=== PATIENT | male | born 1950 | race Caucasian/White ===

== ENCOUNTER 2024-12-02 02:45 | Inpatient (IN) | payer MEDICARE, SELFPAY ==
[2024-12-01 14:25] VITALS: BP 136/89
[2024-12-01 14:41] LABS: % Basophils 0.4 % (0-2); % Eosinophils 0.2 % (0-6); % Immature Granulocytes 0.5 % (0-0.5); % Lymphocytes 5.7 % (20.5-51.1); % Neutrophils 87.2 % (42.2-75.2); Absolute Basophils 0.1 10^3/uL (0-0.2); Absolute Immature Granulocytes 0.1 10^3/uL (0-0.05); Absolute Monocytes 1.1 10^3/uL (0.1-0.6); Absolute Neutrophils 15.8 10^3/uL (1.4-6.5); Hematocrit 39.5 % (39.0-52.0); Hemoglobin 13.2 g/dL (13.0-18.0); Mean Corp Hgb Conc. 33.4 g/dL (33.0-37.0); Mean Corpuscular Hgb 27.6 pg (27.0-31.0); Mean Corpuscular Volume 82.5 fL (80.0-94.0); Mean Platelet Volume 8.3 fL (7.4-10.4); Nucleated Red Blood Cells % 0 % (-); Platelet Count 503 10^3/uL (130-400); Red Blood Cell Count 4.79 10^6/uL (4.70-6.10); Red Cell Dist. Width 13.4 % (11.5-14.5); White Blood Cell Count 18.1 10^3/uL (4.8-10.8)
[2024-12-01 14:55] LABS: ALT (SGPT) 14 U/L (0-50); AST (SGOT) 21 U/L (17-59); Albumin 3.5 g/dl (3.5-5.0); Alkaline Phosphatase 75 U/L (38-126); Blood Urea Nitrogen 39 mg/dl (9-20); Calcium 8.7 mg/dl (8.4-10.2); Carbon Dioxide 28 mmol/L (22-30); Chloride 94 mmol/L (98-107); Glucose 126 mg/dl (70-99); Lipase 193 U/L (23-300); Potassium 4.9 mmol/L (3.5-5.1); Sodium 131 mmol/L (135-145); Total Bilirubin 0.7 mg/dl (0.2-1.3); Total Protein 6.9 g/dl (6.3-8.2); eGFR > 60.00
[2024-12-01 16:16] VITALS: BP 103/69
--- NOTE | 2024-12-01 17:30 | ED.GENMED ---
History of Present Illness
<Clementina Brandon PA-C - Last Filed: 12/02/24 01:24>
General
Chief Complaint: Abdominal Pain
Source: patient
Exam Limitations: none
Time Seen by Provider: 12/01/24 20:49
Nursing documentation reviewed up to this point in time: agreed with
History of Present Illness
History of Present Illness:
Patient is a 74-year-old male presenting to the emergency department for evaluation of many months of vague abdominal discomfort and progressively worsening dysphagia. Patient notes general abdominal discomfort over the past few months associated
with nausea and intermittent vomiting. He also endorses difficulty swallowing both food and liquids which has been progressively worsening. At this point he has difficulty eating or drinking much at all and has lost a significant amount of weight.
Patient denies any diarrhea, constipation, dysuria or other urinary symptoms. Patient states he feels generally weak. No chest pain or shortness of breath.
Separately does report a large growth on his chest that has been slowly growing over the past approximately 6 months. He does think it is started growing much more rapidly over the past few months. This is not painful and bleeds intermittently
Patient denies any alcohol drinking or smoking history. Patient does report has been many years since he was seen by medical provider.
Review of Systems
<Clementina Brandon PA-C - Last Filed: 12/02/24 01:24>
Review of Systems
Allergies reviewed?: Yes
All Other Systems: ROS reviewed and negative except as documented in HPI and ROS
Phy Exam
<Clementina Brandon PA-C - Last Filed: 12/02/24 01:24>
Physical Exam
Physical Exam:
Vitals: Patient's vital signs are stable by my assessment. Afebrile
General: Patient is chronically ill, weak appearing
Skin: 4 x 3 centimeter nodule on central chest without surrounding erythema, red streaking
Head: Normocephalic, atraumatic
Eyes: Sclera nonicteric. EOMs intact. No nystagmus.
Throat: Protecting airway
Neck: Normal ROM, no cervical spine tenderness, no meningismus
Cardiac: Regular rate and rhythm, no murmurs.
Pulm: Normal respiratory effort, no wheezes, rales, rhonchi heard on exam.
Abdomen: Abdomen soft. Diffuse abdominal tenderness
Extremities: No evidence of cyanosis or edema. Palpable DP pulse bilaterally. Strength 5 out of 5 in upper and lower extremities. Sensation fully intact
Neuro: AAOx3 No focal neurologic deficits.
Psychiatric: Normal affect.
Course
<Clementina Brandon PA-C - Last Filed: 12/02/24 01:24>
Orders/Labs/Results
Orders:
Orders
12/01/24 14:32
Complete Blood Count/With Diff Urgent
Comprehensive Metabolic Panel Urgent
Lipase Urgent
12/01/24 21:03
Electrocardiogram (*1) Urgent
Reason for Study: Abdominal Pain
EKG- Treatment ONCE
Famotidine [Pepcid] 20 mg IV NOW STA
Ondansetron Injectable [Zofran] 4 mg IV NOW STA
12/01/24 21:04
CT Abd/pelvis W Iv Cont Urgent
Comment: unable to tolerate PO contrast
Reason For Exam: vague abdominal discomfort, dysphagia, weight loss
12/01/24 21:05
0.9% Sodium Chloride 1000 ml [Nss] 1,000 ml IV BOLUS
Abnormal Lab Results
12/01/24
14:32
WBC 18.1 H 10^3/uL
(4.8-10.8)
Plt Count 503 H 10^3/uL
(130-400)
Abs Immat Gran (auto) 0.1 H 10^3/uL
(0-0.05)
Absolute Neuts (auto) 15.8 H 10^3/uL
(1.4-6.5)
Absolute Lymphs (auto) 1.0 L 10^3/uL
(1.2-3.4)
Absolute Monos (auto) 1.1 H 10^3/uL
(0.1-0.6)
Neutrophils % 87.2 H %
(42.2-75.2)
Lymphocytes % 5.7 L %
(20.5-51.1)
Sodium 131 L mmol/L
(135-145)
Chloride 94 L mmol/L
(98-107)
BUN 39 H mg/dl
(9-20)
Glucose 126 H mg/dl
(70-99)
12/01/24 14:32
12/01/24 14:32
Vital Signs
Initial and Last Documented VS:
Initial Vital Signs
Temp Pulse Resp BP Pulse Ox
98.5 F 113 16 136/89 98
12/01/24 14:25 12/01/24 14:25 12/01/24 14:25 12/01/24 14:25 12/01/24 14:25
Last Documented Vital Signs
Temp Pulse Resp BP Pulse Ox
98.9 F 96 17 103/69 98
12/01/24 16:16 12/01/24 16:16 12/01/24 16:16 12/01/24 16:16 12/01/24 16:16
<Payal Nixon MD - Last Filed: 12/01/24 22:27>
Orders/Labs/Results
Orders:
Orders
12/01/24 14:32
Complete Blood Count/With Diff Urgent
Comprehensive Metabolic Panel Urgent
Lipase Urgent
12/01/24 21:03
Electrocardiogram (*1) Urgent
Reason for Study: Abdominal Pain
EKG- Treatment ONCE
Famotidine [Pepcid] 20 mg IV NOW STA
Ondansetron Injectable [Zofran] 4 mg IV NOW STA
12/01/24 21:04
CT Abd/pelvis W Iv Cont Urgent
Comment: unable to tolerate PO contrast
Reason For Exam: vague abdominal discomfort, dysphagia, weight loss
12/01/24 21:05
0.9% Sodium Chloride 1000 ml [Nss] 1,000 ml IV BOLUS
Abnormal Lab Results
12/01/24
14:32
WBC 18.1 H 10^3/uL
(4.8-10.8)
Plt Count 503 H 10^3/uL
(130-400)
Abs Immat Gran (auto) 0.1 H 10^3/uL
(0-0.05)
Absolute Neuts (auto) 15.8 H 10^3/uL
(1.4-6.5)
Absolute Lymphs (auto) 1.0 L 10^3/uL
(1.2-3.4)
Absolute Monos (auto) 1.1 H 10^3/uL
(0.1-0.6)
Neutrophils % 87.2 H %
(42.2-75.2)
Lymphocytes % 5.7 L %
(20.5-51.1)
Sodium 131 L mmol/L
(135-145)
Chloride 94 L mmol/L
(98-107)
BUN 39 H mg/dl
(9-20)
Glucose 126 H mg/dl
(70-99)
12/01/24 14:32
12/01/24 14:32
Vital Signs
Initial and Last Documented VS:
Initial Vital Signs
Temp Pulse Resp BP Pulse Ox
98.5 F 113 16 136/89 98
12/01/24 14:25 12/01/24 14:25 12/01/24 14:25 12/01/24 14:25 12/01/24 14:25
Last Documented Vital Signs
Temp Pulse Resp BP Pulse Ox
98.9 F 96 17 103/69 98
12/01/24 16:16 12/01/24 16:16 12/01/24 16:16 12/01/24 16:16 12/01/24 16:16
<Madeline Dawson NP - Last Filed: >
Orders/Labs/Results
Orders:
Orders
12/01/24 14:32
Complete Blood Count/With Diff Urgent
Comprehensive Metabolic Panel Urgent
Lipase Urgent
12/01/24 21:03
Electrocardiogram (*1) Urgent
Reason for Study: Abdominal Pain
EKG- Treatment ONCE
Famotidine [Pepcid] 20 mg IV NOW STA
Ondansetron Injectable [Zofran] 4 mg IV NOW STA
12/01/24 21:04
CT Abd/pelvis W Iv Cont Urgent
Comment: unable to tolerate PO contrast
Reason For Exam: vague abdominal discomfort, dysphagia, weight loss
12/01/24 21:05
0.9% Sodium Chloride 1000 ml [Nss] 1,000 ml IV BOLUS
Abnormal Lab Results
12/01/24
14:32
WBC 18.1 H 10^3/uL
(4.8-10.8)
Plt Count 503 H 10^3/uL
(130-400)
Abs Immat Gran (auto) 0.1 H 10^3/uL
(0-0.05)
Absolute Neuts (auto) 15.8 H 10^3/uL
(1.4-6.5)
Absolute Lymphs (auto) 1.0 L 10^3/uL
(1.2-3.4)
Absolute Monos (auto) 1.1 H 10^3/uL
(0.1-0.6)
Neutrophils % 87.2 H %
(42.2-75.2)
Lymphocytes % 5.7 L %
(20.5-51.1)
Sodium 131 L mmol/L
(135-145)
Chloride 94 L mmol/L
(98-107)
BUN 39 H mg/dl
(9-20)
Glucose 126 H mg/dl
(70-99)
12/01/24 14:32
12/01/24 14:32
Vital Signs
Initial and Last Documented VS:
Initial Vital Signs
Temp Pulse Resp BP Pulse Ox
98.5 F 113 16 136/89 98
12/01/24 14:25 12/01/24 14:25 12/01/24 14:25 12/01/24 14:25 12/01/24 14:25
Last Documented Vital Signs
Temp Pulse Resp BP Pulse Ox
98.9 F 96 17 103/69 98
12/01/24 16:16 12/01/24 16:16 12/01/24 16:16 12/01/24 16:16 12/01/24 16:16
<Clementina Brandon PA-C - Last Filed: 12/02/24 01:24>
MDM/Problems Addressed
Differential Diagnosis Includes:
Not limited to: Malignancy (esophageal vs other intra-abdominal source), achalasia, esophageal stricture, MIO, gastritis, pancreatitis, etc.
MDM/Problems Addressed:
74-year-old male presenting with progressive dysphagia and vague abdominal discomfort for the past many months with intermittent vomiting. Also notes significant weight loss. No diarrhea/constipation. No fevers or chills. No chest pain or
shortness of breath. Patient has stable vital signs by my assessment. Physical exam as above. Patient chronically ill-appearing. Dry mucous membranes abdomen is soft with very mild diffuse tenderness, no rebound tenderness or guarding.
Cardio/pulmonary assessment unremarkable. Mass on chest concerning for skin cancer. Labs were initiated in triage significant for leukocytosis of 18. Mild hyponatremia and hypochloremia. Lipase is normal. Concern for possible intra-abdominal
malignancy given symptoms and significant weight loss. Other considerations would be possible achalasia, esophageal stricture, GERD. Will check CT scan, give IV fluid and Zofran. Ultimately anticipate admission given dehydration and significant
dysphagia inability to tolerate significant p.o. intake.
Update: CT scan report reviewed which shows findings consistent with likely metastatic esophageal cancer. Also notes ascites concerning for peritoneal carcinomatosis. Patient afebrile without significant abdominal pain�do not suspect SBP.
Findings discussed with patient at length. Patient will require admission for GI consult/intervention given dysphagia not tolerating p.o. intake. Patient admitted to hospitalist service in stable condition. Patient seen with attending physician.
Chronic conditions affecting care:
N/A
Acute Exacerbation and/or Progression of Chronic Illness:
N/A
<Clementina Brandon PA-C - Last Filed: 12/02/24 01:24>
*Radiology
Radiology exam reviewed: radiology read reviewed
*Pulse Oximetry
Patient hypoxic: no
*EKG
Interpreted by ED Provider?: Yes
EKG Intrepretation Date: 12/01/24
Interpretation: abnormal
Comparison EKG: no changes
Heart Rate: 85
Rate: normal
Rhythm: sinus
[place]: normal axis
Interval: normal QT interval
QRS Pattern: normal QRS
Ischemia: no ischemia
*Critical Care Note
Total Time (30-74mins, 75-104mins- exclusive of procedures): Not Applicable
<Clementina Brandon PA-C - Last Filed: 12/02/24 01:24>
Patient Management
Discussion with other providers: Hospitalist
Escalation/DeEscalation of care consider admission/obs:
Admit given significant dysphagia, inability to tolerate p.o. intake
ED Attending Note
<Payal Nixon MD - Last Filed: 12/01/24 22:27>
ED Attending Note
Patient seen and examined by attending physician: Yes
I performed the substantive portion of visit, reviewed & personally made and approve the management plan that is documented in note by myself or MONAE.: Yes
ED Attending Note:
I have seen and evaluated the patient with a [id number] encounter. I have spoken to the [PA] and involved in the medical history, the physical exam, medical decision making.
Evaluation and management service: agree unless noted differently below.
Results interpretation: agree unless noted differently below.
74-year-old man presenting to the emergency room with abdominal pain. Patient is for months he has been having epigastric abdominal pain weight loss and dysphagia. He is able to tolerate some sips of water however large gulps he cannot tolerate.
He is able to tolerate some solids. Some nausea but no vomiting. He has had weight loss secondary to it. No diarrhea. No night sweats. No history of malignancy. He states that he has not seen a doctor in quite some time. During my evaluation
patient does appear chronically ill. He is having diffuse abdominal pain. He does have dry oral mucosa. He does not have any neurodeficits on exam. Concern for malignancy versus esophageal stricture versus metabolic derangement. Considered CVA
with the dysphagia however he has no other neurodeficits. Blood work obtained prior to evaluation does show leukocytosis. Will obtain CT scan of the abdomen. Anticipate admission given the inability to tolerate p.o.
<Madeline Dawson NP - Last Filed: >
-
Portions of this chart may have been created with voice recognition software.� Occasional wrong word or��sound alike� substitutions may have occurred due to the inherent limitations of voice recognition software.
Discharge Plan
Departure
Patient Disposition: Admit
Date of Disposition: 12/02/24
Time of Disposition: 00:00
Presentation/result/management discussed w/ accepting MD/DO: Hospitalist
Discharge Problem:
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
Referrals:
NONE,* [Family Provider] -
Interventions
Interventions:
*Risk Screen - Suicide Last Done: 12/01/24 14:25
*General Assessment Last Done: 12/01/24 23:43
*Neglect/Abuse Screening Last Done: 12/01/24 23:43
ED- Fall Risk Assessment Last Done: 12/01/24 23:43
*ED COVID-19 Vaccine History Last Done: 12/01/24 23:43
YL-Romiag-Vxtutetpdh Assessment Last Done: 12/01/24 23:43
Discharge Date and Time
Print Language: AMHARIC
[2024-12-01] MEDS: ZOFRAN 4 MG IV (21:26)
[2024-12-01] MEDS: NSS 1000 IV (21:26)
[2024-12-01] MEDS: PEPCID 20 MG IV (21:26)
[2024-12-01 23:43] VITALS: BMI 21.7
[2024-12-02] VITALS (10 sets, daily range): BP systolic 77–135; BP diastolic 49–77; BMI 20.8; BMI 22.4; BMI 19.1
--- NOTE | 2024-12-02 02:26 | HPS.HSE ---
Family Physician
-
Family Physician: * NONE
Chief Complaint
-
Difficulty swallowing
History of Present Illness
Patient is a 74y M with no known PMH who presents to ED complaining of difficulty swallowing. Patient states that he has had trouble swallowing over the past 2 months. Symptoms have progressed in severity during that time. He states that he
could initially tolerate small meals and liquids with long times in between. More recently he cannot even swallow water without great difficulty. He denies any pain with swallowing. He denies any N/V, hematemesis, etc.
Patient also complains of epigastric abdominal pain and mid back pain. He has been notably losing weight - though he is not sure how much.
He states that his bowel movements have decreased in frequency - but have otherwise remained normal. No bloody or black stools.
Patient also notes a large, oozing mass on the anterior chest. He states that this has been present for 'a long time'. He has not previously sought evaluation.
Medical History
Past Medical History
Past Medical History: Reports None
Past Surgical History: Reports Other
Additional Past Surgical History:
Left Hip ORIF
Social History
Tobacco: Former Smoker (Very minimal / remote smoking history. Quit in his early 20s.)
Alcohol: Daily (2 beers nightly.)
Drug: None
Family History
Family History: Other (Father: AAA Mother: Breast Cancer)
Allergies / Home Medications
Allergies reflects when Allergies were last updated in [facility].
Home Medications with original date entered in [facility]
Allergy/Medication List:
Allergies
Allergy/AdvReac Type Severity Reaction Status Date / Time
No Known Allergies Allergy Verified 12/01/24 14:27
Home Medications
No Meds [No Current Medications] 12/02/24
Review of Systems
-
History Source: Patient
A 12 point ROS was completed and negative except as noted: Yes
Constitutional: Reports Weight Loss and Fatigue; Denies Fever or Chills
EENT: Denies Sore Throat
Respiratory: Denies Cough or Trouble Breathing
Cardiac: Denies Chest Pain or Palpitations
Abdomen/GI: Reports Abdominal Pain and Other (trouble swallowing); Denies Nausea, Vomiting, Diarrhea, Bloody Stools or Black Stools
: Denies Dysuria or Frequency
Musculoskeletal: Denies Joint Pain or Edema
Skin: Reports Other (mass on chest)
Neurological: Denies Dizzy or Headache
Physical Exam
Vital Signs
Vital Signs
Temp Pulse Resp BP Pulse Ox
98.9 F 96 17 103/69 98
12/01/24 16:16 12/01/24 16:16 12/01/24 16:16 12/01/24 16:16 12/01/24 16:16
Physical Exam
General: Other (74y M in no acute distress.)
HEENT: Other (Dry MM. Cachectic.)
Respiratory: Clear; No Wheezes, Rales or Rhonchi
Cardiac: S1/S2 and Regular Rhythm; No Murmur
GI: Soft, Non Tender, Non Distended, Normal Bowel Sounds and Other (voluntary guarding. No rebound.)
Musculoskeletal: No Clubbing, No Cyanosis and No Edema
Skin: Other (large, fungating mass on the anterior chest / center with oozing blood .)
Neuro: AO x 3 and Nonfocal/grossly intact
Laboratory Results
-
12/01/24 14:32
12/01/24 14:32
Laboratory Results
Total Bilirubin 0.7 mg/dl (0.2-1.3) 12/01/24 14:32
AST 21 U/L (17-59) 12/01/24 14:32
ALT 14 U/L (0-50) 12/01/24 14:32
Alkaline Phosphatase 75 U/L (38-126) 12/01/24 14:32
Lipase 193 U/L (23-300) 12/01/24 14:32
Impression/Plan
-
A/P: Patient is a 74y M with no known PMH who presents to ED complaining of difficulty swallowing for the past 2 months or so.
Dysphagia
Suspected Metastatic Esophageal Cancer
- Admit for further evaluation and treatment.
- Dysphagia without odynophagia. Significant weight loss.
- CT scan reviewed and shows mass-like thickening of distal esophagus with evidence of diffuse intra-abdominal disease / matting / peritoneal carcinomatosis.
- GI evaluation for additional recommendations.
- IVF support.
- Treatment plan after tissue sampling / biopsy.
- Oncology consulted.
Chest Wall Mass
- Large, fungating mass in the center of the chest.
- Has been present / enlarging for a long time per patient.
- ? squamous or basal cell cancer.
- Surgery evaluation for possible biopsy / resection.
- Oncology consulted.
Mild Hyponatremia
- Likely due to poor PO intake due to dysphagia.
- IVFs support and follow for improvement.
Leukocytosis
Thrombocytosis
- Likely reactive. No evidence of acute infection.
- Observe off of abx and follow for changes.
DVT Prophylaxis: SCDs
Code Status: Full
[2024-12-02] MEDS: NSS 1000 IV ×3 (04:10→23:19)
[2024-12-02 05:12] LABS: Hematocrit 34.8 % (39.0-52.0); Hemoglobin 11.9 g/dL (13.0-18.0); Mean Corp Hgb Conc. 34.2 g/dL (33.0-37.0); Mean Corpuscular Hgb 28.1 pg (27.0-31.0); Mean Corpuscular Volume 82.1 fL (80.0-94.0); Mean Platelet Volume 8.8 fL (7.4-10.4); Platelet Count 454 10^3/uL (130-400); Red Blood Cell Count 4.24 10^6/uL (4.70-6.10); Red Cell Dist. Width 13.3 % (11.5-14.5); White Blood Cell Count 15.3 10^3/uL (4.8-10.8)
[2024-12-02 05:18] LABS: INR 1.16; PT 15.2 Sec (11.4-14.6)
[2024-12-02 05:19] LABS: APTT 34.6 Sec (23.4-35.0)
[2024-12-02 05:26] LABS: ALT (SGPT) 11 U/L (0-50); AST (SGOT) 19 U/L (17-59); Alkaline Phosphatase 68 U/L (38-126); Blood Urea Nitrogen 38 mg/dl (9-20); Calcium 8.2 mg/dl (8.4-10.2); Carbon Dioxide 23 mmol/L (22-30); Chloride 99 mmol/L (98-107); Direct Bilirubin 0.2 mg/dl (0.0-0.4); Estimated Creatinine Clearance 75 ml/min; Glucose 102 mg/dl (70-99); Potassium 4.7 mmol/L (3.5-5.1); Sodium 132 mmol/L (135-145); Total Bilirubin 0.7 mg/dl (0.2-1.3); eGFR > 60.00
--- NOTE | 2024-12-02 07:14 | CON.GI ---
Addendum entered and electronically signed by Mark Toribio DO 12/02/24 16:38:
I saw and examined the patient.
The SERVICE MEMBER's note was reviewed and I agree with the note.
Comment: Mr. Rhodes is a 74 y.o male with no significant past medical history who presented to the ED for acute on chronic dysphagia. No prior EGD in the past. Found to have recent CT imaging revealing moderate circumferential wall thickening of the
distal esophagus with focal irregular wall thickening of the left lateral wall at and above the GE junction. Concern for advanced esophageal carcinoma along with moderate abdominal ascites and omental caking further suggesting likely metastatic
disease. Additionally, found to have a chest wall fungating mass as well concerning for an additional primary malignancy. Oncology has also been consulted. In regards to his esophageal mass, patient would benefit from an EGD with biopsies for
diagnosis (rather than EGD/EUS given findings of metastatic disease). Suspect patient very well may need an esophageal stent as a form of palliation, however would need tissue diagnosis first. Follow up rest of peritoneal studies from recent
paracentesis and please ensure to send cytology given concern for likely malignant ascites. Will plan to perform diagnostic EGD tomorrow after discussing risks and benefits with patient.
Recommendations:
- Keep NPO, okay to have sips of water
- Empiric IV PPI
- Plan for diagnostic EGD tomorrow, 12/03/24, with biopsies (will send for whelan)
- Patient may benefit from a palliative esophageal stent, but will proceed with diagnostic EGD to make diagnosis first. No plans for EUS given suspicion for metastatic disease
- F/u rest of peritoneal fluid studies, send for cytology
- Oncology following, appreciate recs
- Rest of care as outlined below
GI will continue to follow.
Original Note:
Consultation
-
Date/Time Consultation Requested: 12/02/24309
Date/Time Consultation Performed: 12/02/24 8415
Requesting Provider: Dr. Bourne
Performing Provider: Dr. Toribio/MIRANDA Rordiguez
Reason for Consultation: dysphagia
Medical History
Chief Complaint / HPI
Chief Complaint: dysphagia,weight loss
History of Present Illness:
74-year-old male with no significant past medical history however admits he does not go to seek medical care often presented to urgent care because of difficulty swallowing since September and sent to emergency room for further evaluation. We are of
to evaluate for the same. 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 He does not smoke. He drinks 2 beers daily. He has a family history of breast cancer in his mother and lymphoma in his brother. He noticed that approximately
he developed a growth in the upper portion of his chest in the past couple months this started getting larger. Occasionally it would bleed. Currently the size of this is approximately 3 inches x 3 inches fungating and covered in Tegaderm. In
September he had abrupt onset of difficulty swallowing solids and liquid. Initially he started having issues where he would feel as if he drank some liquids it would help push through the solid food. Then he started having episodes where the fluid
would build up and he would vomit this out. He started to notice weight loss and the fact that he is close with no longer fit. He does not own a scale so he cannot quantify this. He also noticed that despite weight loss that his abdomen became
firm but thin. He does have a history of reflux intermittently throughout his life but not often. He would use Tums or Rolaids for this. This has not become worse or less over the past couple months. He does have nausea at times without any
vomiting unless it is from fluid buildup after eating at times. The patient denies any fevers, chills, melena, hematochezia, odynophagia, acholic stools or bilirubinuria. He denies any chest pain or shortness of breath.
Past Medical History
Past Medical History: GERD
Past Surgical History: Orthopedic (Left hip repair)
Social History
Tobacco: Non-Smoker
Alcohol: Daily (2 beers daily)
Drug: None
Personal: Single
Living: Alone
Employment: Retired
Family History
Family History: Other (Mother with history of breast cancer, brother with history of lymphoma, no family history of gastrointestinal malignancy or IBD)
Allergies / Home Medications
Allergy/AdvReac Type Severity Reaction Status Date / Time
No Known Allergies Allergy Verified 12/01/24 14:27
�Medication �Instructions �Recorded
No Meds [No Current Medications] 12/02/24
Review of Systems
-
All other systems: A 12 pt ROS was Negative except as stated above in HPI
Vital Signs
Temp Pulse Resp BP Pulse Ox
98.3 F 80 18 114/75 97
12/02/24 04:14 12/02/24 04:14 12/02/24 04:14 12/02/24 04:14 12/02/24 04:14
Physical Exam
Exam
General: Other (Appears cachectic)
HEENT: Anicteric and Other (Poor dentition)
Respiratory: Clear
Cardiac: Regular Rhythm
GI: Non Tender, Non Distended, Normal Bowel Sounds and Other (Patient very thin, possible peritoneal studding appreciated on abdominal exam)
Musculoskeletal: No Edema
Skin: Warm, Dry and Other (3 inches x 3 inches fungating mass upper sternal area)
Neuro: AO x 3
Psych: Calm
Results
WBC 15.3 10^3/uL (4.8-10.8) H 12/02/24 04:23
Hgb 11.9 g/dL (13.0-18.0) L 12/02/24 04:23
Hct 34.8 % (39.0-52.0) L 12/02/24 04:23
MCV 82.1 fL (80.0-94.0) 12/02/24 04:23
Plt Count 454 10^3/uL (130-400) H 12/02/24 04:23
Absolute Neuts (auto) 15.8 10^3/uL (1.4-6.5) H 12/01/24 14:32
PT 15.2 Sec (11.4-14.6) H 12/02/24 04:23
INR 1.16 12/02/24 04:23
APTT 34.6 Sec (23.4-35.0) 12/02/24 04:23
Sodium 132 mmol/L (135-145) L 12/02/24 04:23
Potassium 4.7 mmol/L (3.5-5.1) 12/02/24 04:23
Chloride 99 mmol/L (98-107) 12/02/24 04:23
Carbon Dioxide 23 mmol/L (22-30) 12/02/24 04:23
BUN 38 mg/dl (9-20) H 12/02/24 04:23
Creatinine 0.8 mg/dL (0.7-1.3) 12/02/24 04:23
Calcium 8.2 mg/dl (8.4-10.2) L 12/02/24 04:23
Total Bilirubin 0.7 mg/dl (0.2-1.3) 12/02/24 04:23
AST 19 U/L (17-59) 12/02/24 04:23
ALT 11 U/L (0-50) 12/02/24 04:23
Alkaline Phosphatase 68 U/L (38-126) 12/02/24 04:23
Lipase 193 U/L (23-300) 12/01/24 14:32
Diagnostic Image Results:
CT abdomen and pelvis with IV contrast: pending
Prior GI Procedures:
EGD: Never had
Colonoscopy: Never had
Assessment / Plan
-
74-year-old male with no significant past medical history who does not seek routine care, family history of lymphoma and breast cancer, drinks 2 alcoholic beverages a day not on any medication presents to the emergency room with approximately
6-month history of 3 inch x 3 and fungating sternal mass and 2-month history of dysphagia to solids and liquids with weight loss of unknown amount as he does not own a scale. CT of the abdomen and pelvis with IV contrast pending. WBC 15.3,
hemoglobin 11.9, hematocrit 34.8, platelets 454, PT 15.2, INR 1.16, sodium 132, potassium 4.7, BUN 38, creatinine 0.8, glucose 102, total bilirubin 0.7, direct bilirubin 0.2, AST 19, ALT 11, alk phos 68, albumin 3.0.
Impression:
Dysphagia
Weight loss
Fungating sternal mass
Plan:
-Await CT abdomen and pelvis
-Oncology consultation
-Would recommend CT chest/neck as well
-Determination for endoscopic evaluation, EGD versus EGD/EUS questionable stenting to be determined
-Continue IV hydration
-Continue pantoprazole
-Further recommendations to be forthcoming
-
-
Thank you for consultation and allowing me to participate in the patient's care. Please call the electronic field service engineer GI physician during the after hours with any questions or concerns.
[2024-12-02] MEDS: NSS (PRESERVATIVE FREE) 10 ML IV (07:22)
[2024-12-02] MEDS: PROTONIX IV 40 MG IV ×2 (07:22→21:13)
--- NOTE | 2024-12-02 08:53 | CON.ONC ---
Impression
Impression
Suspect stage IV esophageal cancer
Chest wall mass
Dysphagia and weight loss
Plan
Plan
Await formal CT of abdomen/pelvis reading. Agree with chest CT as suggested by GI.
Will need EGD for biopsy as well as a surgical biopsy of the fungating mass. These potentially could be related or possibly 2 separate primaries.
Treatment decisions will be made based on staging, pathology, NexGen sequencing (eg, HER2/tahmina, PD-L1, MSI).
This likely represents advanced malignancy and that he would potentially require systemic therapy such as chemotherapy and possibly radiation. He is agreeable to workup and treatment.
We will follow with you.
Patient History
History of Present Illness
CC: Dysphagia and weight loss
HPI: 74-year-old male never sees a PCP MD presented to urgent care because of dysphagia x 2 months with associated weight loss (cannot quantify he does not have a home scale but clothing very loose). Sent from to ER for further evaluation. He
started to notice in September onset of difficulty swallowing solids and liquid. Denies any fevers, chills, melena, hematochezia, odynophagia. He denies any chest pain or shortness of breath. In the ER he had a CT (Prelim report): mass-like
thickening of distal esophagus with evidence of diffuse intra-abdominal disease / matting / peritoneal carcinomatosis. Patient admitted for further evaluation. Patient also has a 6 cm sternal mass also for the past few months growing larger and
occasionally bleeding. It is fungating and currently covered in Tegaderm.
Past-Medical/Surgical History
PMH: GERD
PSH: Left hip repair
Social History
Tobacco: Non-Smoker
Alcohol: Daily (2 beers daily)
Drug: None
Personal: Single
Living: Alone
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
Family History
Family History: Other (Mother with history of breast cancer, brother with history of lymphoma, no family history of gastrointestinal malignancy or IBD)
Allergies / Home Medications
Patient Medication
�Medication �Instructions �Recorded �Confirmed �Last Taken �Type
No Meds [No Current Medications] 12/02/24 12/02/24 Unknown History
Active Medications
Generic Name Dose Route Start Last Admin
Trade Name Freq PRN Reason Stop Dose Admin
Acetaminophen 650 mg 12/02/24 03:10
Acetaminophen 325 Mg Tablet PO 12/30/24 03:09
Q4HPRN PRN
Mild Pain / Temp > 101
Hydromorphone HCl 0.5 mg 12/02/24 03:10
Hydromorphone 0.5 Mg/0.5 Ml Syringe IV 12/16/24 03:09
Q4HPRN PRN
Severe Pain
Sodium Chloride 1,000 mls @ 100 mls/hr 12/02/24 03:10 12/02/24 04:10
Nss IV 1,000 mls
.Q10H JANETTE Administration
Ondansetron HCl 4 mg 12/02/24 03:10
Ondansetron 4 Mg/2 Ml Vial IV 12/30/24 03:09
Q6HPRN PRN
nausea and vomiting
Pantoprazole Sodium 40 mg 12/02/24 08:00 12/02/24 07:22
Pantoprazole Sodium 40 Mg/10 Ml Vial IV 12/30/24 07:59 40 mg
BID JANETTE Administration
Sodium Chloride 10 ml 12/02/24 08:00 12/02/24 07:22
Sodium Chloride 0.9% (Preservative Free) 10 Ml Vial IV 12/30/24 07:59 10 ml
DAILY JANETTE Administration
Sodium Chloride 0 flush 12/02/24 05:00
Sodium Chloride 0.9% (Flush) Syringe IV 12/30/24 04:59
PER PROTOCOL JANETTE
Physical Exam
-
Chest wall: Fungating sick centimeter mass covered in Tegaderm, oozing
General: No Apparent Distress and Comfortable
HEENT: Negative Jaundice
Cardiology: Normal Sinus Rhythm, S1 and S2
Pulmonary: Clear
GI: Soft
Extremities: No C/C/E
Labs
Lab Results
WBC 15.3 10^3/uL (4.8-10.8) H 12/02/24 04:23
RBC 4.24 10^6/uL (4.70-6.10) L 12/02/24 04:23
Hgb 11.9 g/dL (13.0-18.0) L 12/02/24 04:23
Hct 34.8 % (39.0-52.0) L 12/02/24 04:23
MCV 82.1 fL (80.0-94.0) 12/02/24 04:23
MCH 28.1 pg (27.0-31.0) 12/02/24 04:23
MCHC 34.2 g/dL (33.0-37.0) 12/02/24 04:23
RDW 13.3 % (11.5-14.5) 12/02/24 04:23
Plt Count 454 10^3/uL (130-400) H 12/02/24 04:23
MPV 8.8 fL (7.4-10.4) 12/02/24 04:23
Abs Immat Gran (auto) 0.1 10^3/uL (0-0.05) H 12/01/24 14:32
Absolute Neuts (auto) 15.8 10^3/uL (1.4-6.5) H 12/01/24 14:32
Absolute Lymphs (auto) 1.0 10^3/uL (1.2-3.4) L 12/01/24 14:32
Absolute Monos (auto) 1.1 10^3/uL (0.1-0.6) H 12/01/24 14:32
Absolute Eos (auto) 0.0 10^3/uL (0-0.7) 12/01/24 14:32
Absolute Basos (auto) 0.1 10^3/uL (0-0.2) 12/01/24 14:32
Immature Gran % 0.5 % (0-0.5) 12/01/24 14:32
Neutrophils % 87.2 % (42.2-75.2) H 12/01/24 14:32
Lymphocytes % 5.7 % (20.5-51.1) L 12/01/24 14:32
Monocytes % 6.0 % (1.7-9.3) 12/01/24 14:32
Eosinophils % 0.2 % (0-6) 12/01/24 14:32
Basophils % 0.4 % (0-2) 12/01/24 14:32
Creatinine 0.8 mg/dL (0.7-1.3) 12/02/24 04:23
Vital Signs
Vital Signs
Temp Pulse Resp BP Pulse Ox
98.3 F 80 18 117/73 97
12/02/24 04:14 12/02/24 04:14 12/02/24 04:14 12/02/24 07:21 12/02/24 07:26
--- NOTE | 2024-12-02 09:31 | W.PN.HOSP.TC ---
Addendum entered and electronically signed by Quinten Joe MD 12/02/24 14:14:
I personally reviewed CT abdomen pelvis noted esophageal narrowing secondary to mass, hepatic mass, and abdominal ascites, large amount, IR consult, SAAG labs ordered along with cytology and Gram stain. Consult GI likely requires EGD with stent and
EUS with biopsy.
Mass on the anterior chest is fungating erythematous. Will require biopsy.
Original Note:
Today's Communication/Plan
-
Chest/neck CT
EDG possibly
Assessment / Plan
Assessment / Plan
#Dysphagia
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
CT scan showed masslike thickening of distal esophagus with evidence of diffuse intra-abdominal disease and peritoneal carcinomatosis
CT chest/neck pending
GI considering endoscopic evaluation of EGD versus EGD/EUS with or without stenting
GI on board, appreciate input
Continue IVF and pantoprazole
Oncology on board appreciate input
surgery consulted, appreciate input
#chest wall mass
large, fungating mass in center of chest
6+ months of growth, now weeping fluids
surgery consulted
oncology on board
#hyponatremia
likely secondary to poor PO intake
continue IVF
#leukocytosis
likely reactive. no evidence of acute infection
observe
DVT Proph- SCD
Full code
Anticipated Discharge: > 48 hours
Subjective/Interval History
-
Date of Service: December 02, 2024
74-year-old male with no known past medical history presenting to [facility] with difficulty swallowing liquids and solids. He states that this has been progressively worsening over the last 2 months. He also states that he has a fungating
mass on his chest that has been present for at least 6 months however has gotten a lot bigger in the last few weeks. He has never had a colonoscopy and does not follow with a primary care doctor. He says he has a remote history of smoking however
has not smoked in many years. He used to drink 2-3 beers per night prior to developing dysphagia.
Objective Data
-
Labs:
Laboratory Results
12/02/24
04:23
WBC 15.3 H
Hgb 11.9 L
Hct 34.8 L
Plt Count 454 H
PT 15.2 H
INR 1.16
APTT 34.6
Sodium 132 L
Potassium 4.7
Chloride 99
Carbon Dioxide 23
BUN 38 H
Creatinine 0.8
Glucose 102 H
Calcium 8.2 L
Total Bilirubin 0.7
AST 19
ALT 11
Alkaline Phosphatase 68
Vital Signs:
Vital Signs
Temp Pulse Resp BP Pulse Ox
98.3 F 80 18 117/73 97
12/02/24 04:14 12/02/24 04:14 12/02/24 04:14 12/02/24 07:21 12/02/24 07:26
Review of Systems
-
History Source: Patient
Constitutional: Reports Weight Loss and No Appetite
EENT: Reports Other (dysphagia)
Respiratory: Reports No Symptoms
Cardiac: Reports No Symptoms
Abdomen/GI: Reports Constipated
Genitourinary: Reports No Symptoms
Musculoskeletal: Reports No Symptoms
Skin: Reports No Symptoms
Physical Exam
-
General: Comfortable, Conversant and Appears Chronically Ill
HEENT: Normocephalic and Atraumatic; Negative Moist Mucous Membranes
Respiratory: Clear to Auscultation
Cardiac: Regular Rhythm and S1/S2
GI: Soft, Tender and Distended
Musculoskeletal: No Cyanosis, No Edema, Clubbing and Other
Skin: Warm and Dry
Neuro: AO x 3
Psych: Calm
Data Reviewed
-
CT Scan: Report Reviewed by me
Labs: Labs Reviewed by me and Discussed with Physician
Old Records: Reviewed
--- NOTE | 2024-12-02 10:15 | WOUNDNOTE ---
DOMINIC RN note: Patient admitted with Dysphagia, cancer of esophagus.
See H&P for complete history.
PMH: Metastatic esophageal cancer, chest wall mass.
Wound Location and type/assessment: Patient admitted with: Tumor wound on upper mid chest, pink, raised and no odor. Patient states he has had this mass for several months. Patient able to turn self, sacrum and heels intact.
Appetite: NPO
Pressure redistribution devices in place: Can be on Accumax, pressure ulcer prevention measures reviewed. Patient states he understands. Pillow placed under calves.
Plan: Local wound care applied. Surgery and oncology on consult.
Will confirm orders with hospitalist and updated nurse Eunice.
Updated care plan and will follow as needed.
Note to case management of equipment requested for discharge: TBD
Recommend follow up at wound care center upon discharge.
[2024-12-02 12:27] LABS: Body Fluid WBC 1138 /CUMM
[2024-12-02 12:30] LABS: Body Fluid Second Tech EM
[2024-12-02 14:17] LABS: Body Fluid Albumin 1.6 g/dl; Body Fluid Protein 3.7 g/dl
--- NOTE | 2024-12-02 16:35 | CON.GS ---
Consultation
-
Requesting Provider: Steffen
Performing Provider: Danielle
Reason for Consultation: Fungating chest wall mass
Medical History
-
Chief Complaint: dysphagia, wt loss
History of Present Illness:
74M with progressive onset of dysphagia and unintentional wt loss that began 2-3 months ago with difficulty swallowing. Around the same time he developed a lump on his chest that has been enlarging over time, a/w intermittent bleeding. He endorses
intermittent vomiting and weight loss such that his clothes no longer fit properly. His abdomen has also become 'firm' during this time frame, though it is nontender. Denies f/c.
Past Medical History
Past Medical History: GERD and Other (does not see physicians with any regularity)
Past Surgical History: Orthopedic (left hip)
Social History
Tobacco: Non-Smoker
Alcohol: Daily
Drug: None
Personal: Single
Living: Other (has living siblings )
Employment: Retired
Family History
Family History: Other (Mother with history of breast cancer, brother with history of lymphoma)
Allergies / Home Medications
Allergy/AdvReac Type Severity Reaction Status Date / Time
No Known Allergies Allergy Verified 12/01/24 14:27
�Medication �Instructions �Recorded �Confirmed �Type
No Meds [No Current Medications] 12/02/24 12/02/24 History
Review of Systems
-
A 10 point review of systems was completed, and was negative except as per HPI.
Physical Exam
Vital Signs
Temp Pulse Resp BP Pulse Ox
98.2 F 79 18 109/66 100
12/02/24 11:50 12/02/24 11:50 12/02/24 11:50 12/02/24 11:50 12/02/24 11:50
12/01/24 12/02/24 12/03/24
06:59 06:59 06:59
Actual Weight 63.9 kg
Body Mass Index (BMI) 20.8
Lab Results
12/02/24 04:23
12/02/24 04:23
WBC 15.3 10^3/uL (4.8-10.8) H 12/02/24 04:23
Hgb 11.9 g/dL (13.0-18.0) L 12/02/24 04:23
Hct 34.8 % (39.0-52.0) L 12/02/24 04:23
Plt Count 454 10^3/uL (130-400) H 12/02/24 04:23
Abs Immat Gran (auto) 0.1 10^3/uL (0-0.05) H 12/01/24 14:32
Neutrophils % 87.2 % (42.2-75.2) H 12/01/24 14:32
Physical Exam
HEENT: Other (mild temporal wasting)
GI: Soft and Non Tender
Skin: Other (3cm exophytic mass with irregular border and hypergranular appearance)
Neuro: AO x 3
Psych: Calm
Data Reviewed
-
CT Scan: Image Personally Visualized and interpreted, Report Reviewed by me and Discussed with Patient
Assessment / Plan
-
74M with suspected stage IV esophageal CA and fungating chest wall mass
AFVSS, no abd pain
Leukocytosis and thrombocytosis noted, improving since admit
CT A/P with distal esophageal mural mass, omental caking, ascites, liver lesion
Plan for diagnostic paracentesis with IR, EGD/EUS/sampling/possible stent with GI
Would defer biopsy of chest wall mass pending above
GS will follow
[2024-12-02 17:52] LABS: CEA 0.72 ng/ml
--- NOTE | 2024-12-02 21:36 | TRANSFER ---
Patient transferred via stretcher accompanied by ED PCT, all belongings with patient. Report previously tubed and called to verify.
--- NOTE | 2024-12-02 21:45 | TRANSFER ---
pt arrived from via stretcher accompanied by ED staff. pt ambulated from stretcher to bed without assistance. AAOx3, VSS. call shah placed within reach, plan of care ongoing.
[2024-12-03 06:00] VITALS: BMI 19.3
--- NOTE | 2024-12-03 07:38 | W.PN.HOSP.TC ---
Addendum entered and electronically signed by Quinten Joe MD 12/03/24 14:12:
Dysphagia secondary to suspected esophageal cancer
For EGD with biopsy today
Discussed with endoscopist necrotic mass unable to stand unclear if false lumen.
UGIS ordered.
N.p.o.
IV fluids�dextrose containing
Follow-up biopsies
Large volume ascites,'s SAAG 0.9, likely related to omental caking
2.9 L removed
Follow-up cytology
Fungating mass
Surgery consult for biopsy
Original Note:
Today's Communication/Plan
-
EGD with biopsy today
Assessment / Plan
Assessment / Plan
#Dysphagia
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
CT scan showed masslike thickening of distal esophagus with evidence of diffuse intra-abdominal disease and peritoneal carcinomatosis
CT chest/neck shows distal esophageal thickening, abdominal ascites
GI considering endoscopic evaluation of EGD versus EGD/EUS with or without stenting. to be completed today
GI on board, appreciate input
Continue IVF and pantoprazole
Oncology on board appreciate input
surgery on board, appreciate input
IR consulted for therapeutic thoracentesis. 2900 cc removed
#chest wall mass
large, fungating mass in center of chest
6+ months of growth, now weeping fluids
surgery following
oncology on board
#hyponatremia
likely secondary to poor PO intake
continue IVF
#leukocytosis
likely reactive. no evidence of acute infection
observe
DVT Proph- SCD
Full code
Anticipated Discharge: > 48 hours
Subjective/Interval History
-
Date of Service: December 03, 2024
Patient underwent thoracentesis yesterday and 2900 cc of fluid was removed. Chest CT showed distal esophageal wall thickening concerning for esophageal carcinoma, moderate rubio ascites and omental caking, right middle lobe noncalcified 7 mm
pulmonary nodule. Plan for EGD with biopsy today.
Objective Data
-
Labs:
Laboratory Results
12/03/24
07:33
WBC Pending
Hgb Pending
Hct Pending
Plt Count Pending
Sodium Pending
Potassium Pending
Chloride Pending
Carbon Dioxide Pending
BUN Pending
Creatinine Pending
Glucose Pending
Calcium Pending
Total Bilirubin Pending
AST Pending
ALT Pending
Alkaline Phosphatase Pending
Vital Signs:
Vital Signs
Temp Pulse Resp BP Pulse Ox
98.6 F 76 18 116/68 98
12/02/24 23:30 12/02/24 23:30 12/02/24 23:30 12/02/24 23:30 12/02/24 23:30
I&O
12/02/24 12/03/24 12/04/24
06:59 06:59 06:59
Intake Total 1200 / 1200
Output Total 300 / 300
Balance 900 / 900
Review of Systems
-
History Source: Patient
Constitutional: Reports Weight Loss, No Appetite and Fatigue
EENT: Reports Other (dysphagia)
Respiratory: Reports No Symptoms
Cardiac: Reports No Symptoms
Abdomen/GI: Reports Nausea
Genitourinary: Reports No Symptoms
Musculoskeletal: Reports Muscle Weakness
Physical Exam
-
General: Conversant and Appears Chronically Ill
HEENT: Normocephalic and Atraumatic; Negative Moist Mucous Membranes
Respiratory: Clear to Auscultation
Cardiac: Regular Rhythm and S1/S2
GI: Soft, Nontender and Distended
Musculoskeletal: No Cyanosis, No Edema and Clubbing
Skin: Warm and Dry
Neuro: AO x 3
Psych: Calm
Data Reviewed
-
CT Scan: Report Reviewed by me
Labs: Labs Reviewed by me and Discussed with Physician
Old Records: Reviewed
[2024-12-03 07:48] VITALS: BP 118/68
[2024-12-03 07:56] LABS: % Basophils 0.7 % (0-2); % Eosinophils 0.5 % (0-6); % Immature Granulocytes 0.4 % (0-0.5); % Lymphocytes 5.3 % (20.5-51.1); % Neutrophils 87.1 % (42.2-75.2); Absolute Basophils 0.1 10^3/uL (0-0.2); Absolute Eosinophils 0.1 10^3/uL (0-0.7); Absolute Immature Granulocytes 0.1 10^3/uL (0-0.05); Absolute Lymphocytes 0.8 10^3/uL (1.2-3.4); Absolute Monocytes 0.9 10^3/uL (0.1-0.6); Absolute Neutrophils 12.9 10^3/uL (1.4-6.5); Hematocrit 36.1 % (39.0-52.0); Hemoglobin 12.1 g/dL (13.0-18.0); Mean Corp Hgb Conc. 33.5 g/dL (33.0-37.0); Mean Corpuscular Hgb 27.8 pg (27.0-31.0); Mean Corpuscular Volume 82.8 fL (80.0-94.0); Mean Platelet Volume 8.5 fL (7.4-10.4); Nucleated Red Blood Cells % 0 % (-); Platelet Count 416 10^3/uL (130-400); Red Blood Cell Count 4.36 10^6/uL (4.70-6.10); Red Cell Dist. Width 13.4 % (11.5-14.5); White Blood Cell Count 14.8 10^3/uL (4.8-10.8)
[2024-12-03 08:23] LABS: ALT (SGPT) < 10 U/L (0-50); AST (SGOT) 16 U/L (17-59); Albumin 2.5 g/dl (3.5-5.0); Alkaline Phosphatase 64 U/L (38-126); Blood Urea Nitrogen 35 mg/dl (9-20); Calcium 8.2 mg/dl (8.4-10.2); Carbon Dioxide 21 mmol/L (22-30); Chloride 102 mmol/L (98-107); Estimated Creatinine Clearance 62 ml/min; Glucose 72 mg/dl (70-99); Potassium 4.4 mmol/L (3.5-5.1); Sodium 134 mmol/L (135-145); Total Bilirubin 0.6 mg/dl (0.2-1.3); Total Protein 5.4 g/dl (6.3-8.2); eGFR > 60.00
--- NOTE | 2024-12-03 08:38 | W.PN.ONC2 ---
Documented by User: MIRANDA Hylton 12/03/24 12:01
Today's Communication / Plan
-
-
Impression
Impression
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
RML 7mm pulmonary nodule vs bifurcation of vessels
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
s/p para 2900cc drained 12/02
Dysphagia and weight loss
Plan
Plan
f/u para cytology
EGD/EUS/sampling/possible stent with GI
Treatment decisions will be made based on staging, pathology, NexGen sequencing (eg, HER2/tahmina, PD-L1, MSI).
This likely represents advanced malignancy and that he would potentially require systemic therapy such as chemotherapy and possibly radiation. He is agreeable to workup and treatment.
OP PET
We will follow with you.
Subjective/Objective
Subjective
no new complaints
dry mouth
denies pain
Vital Signs:
Vital Signs
Temp Pulse Resp BP Pulse Ox
99.2 F 89 18 118/68 98
12/03/24 07:48 12/03/24 07:48 12/03/24 07:48 12/03/24 07:48 12/03/24 07:48
Lab Results:
Laboratory Data
WBC 14.8 10^3/uL (4.8-10.8) H 12/03/24 07:33
Hgb 12.1 g/dL (13.0-18.0) L 12/03/24 07:33
Plt Count 416 10^3/uL (130-400) H 12/03/24 07:33
PT 15.2 Sec (11.4-14.6) H 12/02/24 04:23
INR 1.16 12/02/24 04:23
APTT 34.6 Sec (23.4-35.0) 12/02/24 04:23
eGFR > 60.00 12/03/24 07:33
Physical Exam
Chest wall: Fungating sick centimeter mass covered in Tegaderm, oozing
General: No Apparent Distress and Comfortable
HEENT: Negative Jaundice, poor dentition
Cardiology: Normal Sinus Rhythm, S1 and S2
Pulmonary: Clear
GI: Soft
Extremities: No C/C/E

Documented by User: Jens Massey DO 12/03/24 11:15
Plan
Plan
f/u para cytology
EGD/EUS/sampling/possible stent with GI pending today
Reviewed need for pathologic diagnosis to confirm tissue type and potential treatment options
Treatment decisions will be made based on staging, pathology, NexGen sequencing (eg, HER2/tahmina, PD-L1, MSI).
This likely represents advanced malignancy and that he would potentially require systemic therapy such as chemotherapy and possibly radiation. He is agreeable to workup and treatment.
OP PET
We will follow with you.
[2024-12-03] MEDS: NSS 1000 IV (09:38)
[2024-12-03] MEDS: NSS (PRESERVATIVE FREE) 10 ML IV ×2 (09:39→19:38)
[2024-12-03] MEDS: PROTONIX IV 40 MG IV ×2 (09:39→19:38)
--- NOTE | 2024-12-03 10:24 | CM ---
CM following re: discharge planning.
Reviewed pt's chart, met with pt.
Pt is a 74 year old male, admitted with primary dx of Dysphagia. Suspected metastatic esophageal cancer. Per chart review, EGD with biopsy today.
Pt reports he lives alone in a 2SH, 2 steps to enter, has no children, has 5 supportive brothers. Pt described himself as independent in al areas [employer], known to wound care clinic. Pt expressed his desire to return back home at discharge.
resident associate recommend follow up at wound care clinic at discharge.
PCP: pt stated he does not have PCP; goes to Urgent care.
Pharmacy: pt stated he does no take any medications and would prefer [facility] [place].
D/C plan: home with follow up at wound care clinic and brothers support.
CM will follow with discharge plan updates as hospitalization progresses
[2024-12-03 13:00] VITALS: BP 105/63; BP_SYST 14
[2024-12-03 13:15] VITALS: BP 102/64; BP_SYST 18
--- NOTE | 2024-12-03 13:21 | PTCARENOTE ---
Dr Toribio spoke with PT regarding prognosis, PT is down and said multiple times, 'I wish I didn't wake up', 'Im a man walking, there is no point anymore'
[ End ]
[2024-12-03] MEDS: D5/0.45%NACL 1000 IV (15:39)
[2024-12-03 15:56] VITALS: BP 135/81
--- NOTE | 2024-12-03 17:53 | PTCARENOTE ---
Received patient this am AAOx3. Pt NPO with IVF infusing without difficulty. Pt off unit to GI unit an then Ct scan. Pt appears very upset in regards to current medical issues. Dr. Toribio to see patient at bedside. Made patient comfortable. Support
given to patient. Cont to assess patient status.
[2024-12-03 23:41] VITALS: BP 113/71
[2024-12-04] MEDS: D5/0.45%NACL 1000 IV (00:30)
--- NOTE | 2024-12-04 06:58 | PTOTSP ---
Speech Therapy
EGD found 'near-completely obstructing, malignant-appearing esophageal mass found in the distal esophagus'. Currently NPO with further tests pending. Given above findings as likely the most significant cause for dysphagia, ST is not currently
indicated. Reconsult as needed.
--- NOTE | 2024-12-04 07:54 | W.PN.HOSP.TC ---
Addendum entered and electronically signed by Quinten Joe MD 12/04/24 13:44:
Dysphagia secondary to suspected esophageal cancer
S/p EGD, able to obtain multiple biopsies from different sites however report is concerning for necrotic mass/false lumen unable to safely stent at the time of the EGD
UGI as obtained, able to allow for contrast to pass small amount of bile, started on clear liquid diet, GI to speak with advanced endoscopist to review imaging for potential esophageal stent
-If unable to provide stent may require a discussion for alternative sources of feeding that being surgically placed PEG tube versus TPN
-Though started on a liquid diet would add Ensure with small sips to allow for some nutritional intake
IV fluids�dextrose containing
Follow-up biopsies
Large volume ascites,'s SAAG 0.9, likely related to omental caking
2.9 L removed
Follow-up cytology
Fungating mass
Surgery consult for biopsy
Hyponatremia, hypovolemic
start D5 NS
Leukocytosis without evidence of infection, afebrile, will continue to monitor, likely reactive in the setting of malignancy
Will follow for now if, getting worse becomes febrile then would obtain blood cultures start antibiotics
Original Note:
Today's Communication/Plan
-
pending biopsy results
GI to recommend if stenting possible based on UGIS
Assessment / Plan
Assessment / Plan
#Dysphagia
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
CT scan showed masslike thickening of distal esophagus with evidence of diffuse intra-abdominal disease and peritoneal carcinomatosis
CT chest/neck shows distal esophageal thickening, abdominal ascites
GI considering endoscopic evaluation of EGD versus EGD/EUS with or without stenting. Completed on 12/04.
Pending pathology results
GI on board, appreciate input
Continue IVF and pantoprazole
Oncology on board appreciate input
surgery on board, appreciate input
IR consulted for therapeutic thoracentesis. 2900 cc removed
Oncology recommending outpatient PET scan
#Protein calorie malnutrition
Likely secondary to dysphagia from esophageal cancer
Ongoing conversations regarding nutritional supplementation via PEG versus TPN
#chest wall mass
large, fungating mass in center of chest
6+ months of growth, now weeping fluids
surgery following
oncology on board
#hyponatremia
likely secondary to poor PO intake
continue IVF
#leukocytosis
likely reactive. no evidence of acute infection
observe
DVT Proph- SCD
Full code
Anticipated Discharge: > 48 hours
Subjective/Interval History
-
Date of Service: December 04, 2024
Patient underwent EUS with biopsy yesterday. Near complete occlusion of distal esophagus. He reports no acute overnight events. He states the only complaint he has currently is having a very dry mouth.
Objective Data
-
Vital Signs:
Vital Signs
Temp Pulse Resp BP Pulse Ox
98.6 F 82 18 113/71 98
12/03/24 23:41 12/03/24 23:41 12/03/24 23:41 12/03/24 23:41 12/03/24 23:41
I&O
12/03/24 12/04/24 12/05/24
06:59 06:59 06:59
Intake Total 1200 / 1200 2240 / 2240
Output Total 300 / 300 450 / 450
Balance 900 / 900 1790 / 1790
Review of Systems
-
History Source: Patient
Constitutional: Reports Weight Loss, No Appetite and Fatigue
EENT: Reports Other (Dysphagia)
Respiratory: Reports No Symptoms
Abdomen/GI: Reports Nausea
Genitourinary: Reports No Symptoms
Musculoskeletal: Reports No Symptoms
Skin: Reports No Symptoms
Neuro: Reports Weakness
Physical Exam
-
General: Conversant, Appears Chronically Ill and Cachectic
HEENT: Normocephalic and Atraumatic
Respiratory: Clear to Auscultation
Cardiac: Regular Rhythm and S1/S2
GI: Soft, Nontender and Nondistended
Musculoskeletal: No Cyanosis, No Edema and Clubbing
Skin: Warm and Dry
Neuro: AO x 3
Psych: Calm
Data Reviewed
-
Labs: Labs Reviewed by me and Discussed with Physician
Old Records: Reviewed
[2024-12-04 07:55] VITALS: BP 113/68
[2024-12-04 08:16] LABS: % Basophils 0.4 % (0-2); % Eosinophils 0.6 % (0-6); % Immature Granulocytes 0.5 % (0-0.5); % Lymphocytes 5.2 % (20.5-51.1); % Monocytes 6.3 % (1.7-9.3); Absolute Basophils 0.1 10^3/uL (0-0.2); Absolute Eosinophils 0.1 10^3/uL (0-0.7); Absolute Immature Granulocytes 0.1 10^3/uL (0-0.05); Absolute Lymphocytes 0.8 10^3/uL (1.2-3.4); Absolute Neutrophils 13.8 10^3/uL (1.4-6.5); Hematocrit 36.3 % (39.0-52.0); Hemoglobin 12.1 g/dL (13.0-18.0); Mean Corp Hgb Conc. 33.3 g/dL (33.0-37.0); Mean Corpuscular Hgb 27.6 pg (27.0-31.0); Mean Corpuscular Volume 82.9 fL (80.0-94.0); Mean Platelet Volume 8.5 fL (7.4-10.4); Nucleated Red Blood Cells % 0 % (-); Platelet Count 399 10^3/uL (130-400); Red Blood Cell Count 4.38 10^6/uL (4.70-6.10); Red Cell Dist. Width 13.6 % (11.5-14.5); White Blood Cell Count 15.9 10^3/uL (4.8-10.8)
[2024-12-04 08:36] LABS: ALT (SGPT) < 10 U/L (0-50); AST (SGOT) 16 U/L (17-59); Albumin 2.3 g/dl (3.5-5.0); Alkaline Phosphatase 57 U/L (38-126); Blood Urea Nitrogen 33 mg/dl (9-20); Calcium 7.3 mg/dl (8.4-10.2); Carbon Dioxide 26 mmol/L (22-30); Chloride 102 mmol/L (98-107); Estimated Creatinine Clearance 70 ml/min; Glucose 137 mg/dl (70-99); Potassium 4.2 mmol/L (3.5-5.1); Sodium 133 mmol/L (135-145); Total Bilirubin 0.8 mg/dl (0.2-1.3); Total Protein 5.3 g/dl (6.3-8.2); eGFR > 60.00
[2024-12-04] MEDS: NSS (PRESERVATIVE FREE) 10 ML IV ×2 (09:50→20:35)
[2024-12-04] MEDS: PROTONIX IV 40 MG IV ×2 (09:50→20:35)
[2024-12-04] MEDS: FLUSH (NSS) 1 FLUSH IV ×3 (09:50→20:35)
[2024-12-04] MEDS: DILAUDID 0.5 MG IV (10:00)
--- NOTE | 2024-12-04 10:02 | W.PN.ONC ---
Documented by User: Mike Castaneda DO, Resident 12/04/24 11:04
Today's Communication / Plan
-
Await cytology from biopsy and paracentesis
Definitive management contingent on biopsy results and NexGen sequencing for actionable targets
Outpatient PET CT to further evaluate fungating mass, esophageal mass and omental metastasis
Serial therapeutic paracentesis as needed for recurrent ascites
IV fluids and symptomatic management per primary and GI
Impression
Impression
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
RML 7mm pulmonary nodule vs bifurcation of vessels
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
s/p para 2900cc drained 12/02. Large volume ascites 2.9 L, SAAG 0.9�likely secondary to omental caking
Dysphagia and weight loss
Plan
Plan
f/u para cytology
Serial paracentesis as needed
Status post EGD with biopsy
Cytology/biopsy results pending
Treatment decisions will be made based on staging, pathology, NexGen sequencing (eg, HER2/tahmina, PD-L1, MSI).
This likely represents advanced malignancy and that he would potentially require systemic therapy such as chemotherapy and possibly radiation. He is agreeable to workup and treatment.
OP PET planned
We will follow with you.
Subjective/Objective
Subjective/Objective
Vital Signs:
Vital Signs
Temp Pulse Resp BP Pulse Ox
98.3 F 74 16 113/68 98
12/04/24 07:55 12/04/24 07:55 12/04/24 07:55 12/04/24 07:55 12/04/24 09:48
Lab Results:
Laboratory Data
WBC 15.9 10^3/uL (4.8-10.8) H 12/04/24 08:03
Hgb 12.1 g/dL (13.0-18.0) L 12/04/24 08:03
Plt Count 399 10^3/uL (130-400) 12/04/24 08:03
PT 15.2 Sec (11.4-14.6) H 12/02/24 04:23
INR 1.16 12/02/24 04:23
APTT 34.6 Sec (23.4-35.0) 12/02/24 04:23
eGFR > 60.00 12/04/24 08:03

Documented by User: Parth Borja MD 12/04/24 12:45
Plan
Plan
f/u para cytology
Serial paracentesis as needed
Status post EGD with biopsy
Cytology/biopsy results pending
Treatment decisions will be made based on staging, pathology, NexGen sequencing (eg, HER2/tahmina, PD-L1, MSI).
This likely represents advanced malignancy and that he would potentially require systemic therapy such as chemotherapy and possibly radiation. He is agreeable to workup and treatment.
OP PET planned
We will follow with you
Oncology Addendum:
Patient seen and evaluated and agree w/ resident note and plan as outlined
-advanced metastatic malignancy
-await pathology from EGD w/ biopsy
-chest wall mass -may benefit from palliative XRT
-molecular studies/ HER-2/tahmina/PD-L1%/MSI status to be run on pathology
Will contnue to follow with you
--- NOTE | 2024-12-04 10:54 | PN.CDI ---
CDI
- -
CDI:
Physician Documentation Request
Admit Date: 12/02/24 02:45
Dear Doctor Raciel,
Patient admitted with esophageal mass.
Please review the following and provide your response in the progress notes.
Clinical Indicators:
Height: 5' 9'
Weight: 130 lbs
BMI: 19.3
Other Clinical Notes:
12/03 Oncology PN: 'Suspect stage IV esophageal cancer'
H&P: 'More recently he cannot even swallow water without great difficulty...He has been notably losing weight - though he is not sure how much...Physical Exam...Cachectic.'
If possible, please provide an associated diagnosis related to the abnormal BMI, such as:
Cachexia due to cancer
Cachexia only
Other
BMI < or = to 19.9
Underweight
Weight Loss
Cachectic
Anorexia
Use of terms such as suspected, likely, concern for, or probable (associated with a specific diagnosis that is being evaluated, monitored, or treated as if it exists) are acceptable and can be coded in the inpatient setting, when documented at the
time of discharge.
Thank you,
Sheri Villaseñor RN, BSN
CDI Specialist
Available via [employer] text
Please use your independent medical judgment in providing your response.
[2024-12-04 12:58] VITALS: BMI 19.7
--- NOTE | 2024-12-04 14:06 | W.PN.UPDATE ---
Update Note
Progress Note Update
Spoke with patient this afternoon on 12/04 regarding mood symptoms. Note was relayed to us that patient felt that he wanted to on 12/03. Today in conversation, patient had no suicidal or homicidal ideation. He had no auditory, tactile or visual
hallucinations. He stated that all of the news that he has been getting over the last day has been 'the worst possible outcomes' and is making him feel hopeless. He states he is just waiting to hear what the next steps are and what his biopsy
results are because 'all doctors are telling him the same thing'.
--- NOTE | 2024-12-04 14:31 | W.PN.GI.CBS2 ---
Addendum entered and electronically signed by Kylah Eason MD 12/04/24 17:37:
I saw and examined the patient.
The MASK INSPECTOR or PA's note was reviewed and I agree with the note.
Comment: Patient reports that his abdomen feels tighter with fluid retention, no nausea, vomiting. Is able to tolerate clear liquids but only sips at a time.
No BM yet, taking miralax sips slowly.
Abdomen-soft, mild distention , no tenderness
-Await path results from EGD, needs close follow up with oncology
Change regular ensure to ensure clear as pt is having hard time drinking the thicker ensure. Difficult situation in terms of feeding as pt has near complete obstructing esophageal lesion and possible malignant ascites.
Continue Miralax daily
May need therapeutic paracentesis again next week
Will follow
Original Note:
Today's Communication / Plan
-
s/p EGD and imaging as above with concern for esophageal malignancy with mets (ascites, omental caking, liver lesions)
await path
cont liquid diet as taking minimal- cont supplement - monitor intakes
add miralax with large stool burden on initial CT
cont PPI
appreciate oncology input
brother updated at bedside
Assessment / Plan
-
74-year-old male with no significant past medical history who does not seek routine care, family history of lymphoma and breast cancer, drinks 2 alcoholic beverages a day not on any medication presents to the emergency room with approximately
6-month history of 3 inch x 3 and fungating sternal mass and 2-month history of dysphagia to solids and liquids with weight loss ? 25 lbs +.
12/01 CT a/p IV
Possible distal esophageal mural mass. Upper GI examination/direct visualization recommended
3 cm hypodense hepatic lesion. This may be benign or malignant. MRI examination recommended.
Omental caking suggesting metastatic disease.
Large amount of abdominal pelvic ascites.
Moderate fecal material throughout the colon.
Moderate hiatal hernia
12/02 para 2900ml WBC neg SBP
12/02 CT neck No evidence of acute nor metastatic disease of the neck.
Mild nonacute right maxillary sinusitis.
Less than grade 1 anterolisthesis of C7 on T1.
12/03 EGD [facility] - Near-completely obstructing, malignant-appearing
esophageal mass found in the distal esophagus at 35
cms from the incisors. Beyond this area, there was
extensive ulceration and necrosis. The lumen could not
be found given extensive necrotic appearing tissue.
Possibly resulting in a false lumen beyond the mass.
Multiple biopsies obtained (sent for bard).
- Could not further evaluate the GE junction, stomach,
or duodenum due to the nearly fully obstructing mass
12/03 esophagram
Partially obstructing irregular mass of the distal thoracic esophagus, suspicious for malignancy.
Impression:
distal esophageal mural mass
Fungating sternal mass
ascites s/p para
omental caking on CT concern for mets
liver lesions
Dysphagia
constipation
Weight loss
mod HH
Plan:
s/p EGD and imaging as above with concern for esophageal malignancy with mets (ascites, omental caking, liver lesions)
await path
cont liquid diet as taking minimal- cont supplement - monitor intakes
add miralax with large stool burden on initial CT
cont PPI
appreciate oncology input
brother updated at bedside
Subjective
Subjective
Date of Service: December 04, 2024
tolerating only small sips clear last stool over 1 week ago but was note eating much
Objective
Data Reviewed
Laboratory Data:
Laboratory Results
12/04/24 08:03
12/04/24 08:03
Laboratory Results
PT 15.2 Sec (11.4-14.6) H 12/02/24 04:23
INR 1.16 12/02/24 04:23
APTT 34.6 Sec (23.4-35.0) 12/02/24 04:23
Total Bilirubin 0.8 mg/dl (0.2-1.3) 12/04/24 08:03
AST 16 U/L (17-59) L 12/04/24 08:03
ALT < 10 U/L (0-50) 12/04/24 08:03
Alkaline Phosphatase 57 U/L (38-126) 12/04/24 08:03
Lipase 193 U/L (23-300) 12/01/24 14:32
Vital Signs and I&O:
Vital Signs
Temp Pulse Resp BP Pulse Ox
98.3 F 74 16 113/68 98
12/04/24 07:55 12/04/24 07:55 12/04/24 07:55 12/04/24 07:55 12/04/24 09:48
I&O
12/03/24 12/04/24 12/05/24
06:59 06:59 06:59
Intake Total 1200 / 1200 2240 / 2240
Output Total 300 / 300 450 / 450
Balance 900 / 900 1790 / 1790
Physical Exam
Physical Exam
HEENT: Anicteric and Moist mucous membranes
Cardiology: Normal Sinus Rhythm
Pulmonary: Clear and Other (dry dressing on chest wound)
GI: Soft, Non Distended and Non Tender
Extremities: No Edema
Neuro: Non Focal
[2024-12-04] MEDS: D5/0.9% SODIUM CHLORIDE 1000 IV (14:58)
[2024-12-04] MEDS: D5/0.45%NACL IV (14:58)
[2024-12-04 15:55] VITALS: BP 107/74
--- NOTE | 2024-12-04 16:22 | PTCARENOTE ---
Pt AAO x3, withdrawn. HOSKINS; weak. OOB with minimal assistance. VSS. On room air- pulse ox 98%, no SOB noted. Abd soft, hypoactive BS. Pt shun only small amts clear liquids. Voids in BR/urinal without difficulty. IVF's D5NSS @ 100 ml/hr infusing
via Rt forearm site without sx of infiltration. Resting quietly at present. Ant chest dsg D/I. Will continue to monitor.
[2024-12-04] MEDS: MIRALAX 17 GRAMS PO (16:26)
[2024-12-04 17:01] VITALS: BMI 19.7
[2024-12-04 23:53] VITALS: BP 115/74
[2024-12-05] MEDS: D5/0.9% SODIUM CHLORIDE 1000 IV ×3 (00:50→21:40)
[2024-12-05 06:00] VITALS: BMI 20.2
[2024-12-05 07:20] VITALS: BP 109/73
--- NOTE | 2024-12-05 07:21 | PTCARENOTE ---
Pt aaox3 able to make his needs known.Pt encouraged to call for an pain meds as needed.Pt voided 425 overnight, this morning pt bladder scan is 466ml.Pt states he want some more time & try again later, refuses straight cath.COMPRESSOR OPERATOR risk control director made aware
of it.No new orders at this time.Plan of care continued.
--- NOTE | 2024-12-05 08:45 | W.PN.GI.CBS2 ---
Addendum entered and electronically signed by Roslyn Mtz DO 12/05/24 12:32:
Patient seen and examined independently of MIRANDA. I agree with her note with my additions below
Mayco is slowly trying to take in the Ensure. He is having some nausea and lower abdominal cramping and feels like he is very full.
His path is still pending
He needs some option for nutrition intake which currently is very limited
I have sent a message to discuss with Dr. Ramirez for potential esophageal stenting
I have sent a message to oncology to ask questions about if we did an esophageal stent with that interfere with potential radiation?
He is not a candidate for PEG tube because we cannot get the scope through the esophageal mass
Unlikely J surgical candidate because of the omental caking and ascites
On Saturday would repeat paracentesis for comfort
We had a discussion about anxiety, pain, nausea and I discussed with Dr. Joe. I will start him on a low-dose IV benzodiazepine.
Patient is interested in taking something. He is understandably upset about his grim prognosis
He has no children. His brother who lives about an hour away is coming to see him today.
Addendum entered and electronically signed by MIRANDA Carroll 12/05/24 09:44:
review with Dr. Joe about nutrition if continued decreased intakes. Await path. Would not be candidate for peg with ascites and omental caking. Will review with Dr. Mtz if patient would be candidate for esophageal stent but would likely need
path back first and then review with Dr. Ramirez.
Original Note:
Today's Communication / Plan
-
s/p EGD and imaging as above with concern for esophageal malignancy with mets (ascites, omental caking, liver lesions)
await path from EGD and ascites fluid
cont liquid diet as taking minimal- cont supplement - monitor intakes
cont Miralax daily will add dulcolax and enema as needed reviewed with nursing staff no stool in over 1 week and moderate stool burden on imaging
cont PPI
may need repeat para on Saturday with some lower abdominal fullness
appreciate oncology input
brother updated 12/04
Assessment / Plan
-
74-year-old male with no significant past medical history who does not seek routine care, family history of lymphoma and breast cancer, drinks 2 alcoholic beverages a day not on any medication presents to the emergency room with approximately
6-month history of 3 inch x 3 and fungating sternal mass and 2-month history of dysphagia to solids and liquids with weight loss ? 25 lbs +. Imaging and EGD as below with concern for metastatic process.
12/01 CT a/p IV
Possible distal esophageal mural mass. Upper GI examination/direct visualization recommended
3 cm hypodense hepatic lesion. This may be benign or malignant. MRI examination recommended.
Omental caking suggesting metastatic disease.
Large amount of abdominal pelvic ascites.
Moderate fecal material throughout the colon.
Moderate hiatal hernia
12/02 para 2900ml WBC neg SBP
12/02 CT neck No evidence of acute nor metastatic disease of the neck.
Mild nonacute right maxillary sinusitis.
Less than grade 1 anterolisthesis of C7 on T1.
12/[address] Toribio - Near-completely obstructing, malignant-appearing
esophageal mass found in the distal esophagus at 35
cms from the incisors. Beyond this area, there was
extensive ulceration and necrosis. The lumen could not
be found given extensive necrotic appearing tissue.
Possibly resulting in a false lumen beyond the mass.
Multiple biopsies obtained (sent for medicine bow).
- Could not further evaluate the GE junction, stomach,
or duodenum due to the nearly fully obstructing mass
12/03 esophagram
Partially obstructing irregular mass of the distal thoracic esophagus, suspicious for malignancy.
Impression:
distal esophageal mural mass
Fungating sternal mass
ascites s/p para 12/[address] concern for mets
liver lesions
leukocytosis
hyponatremia
Dysphagia
constipation
Weight loss
mod HH
Plan:
s/p EGD and imaging as above with concern for esophageal malignancy with mets (ascites, omental caking, liver lesions)
await path from EGD and ascites fluid
cont liquid diet as taking minimal- cont supplement - monitor intakes
cont Miralax daily will add dulcolax and enema as needed reviewed with nursing staff no stool in over 1 week and moderate stool burden on imaging
cont PPI
may need repeat para on Saturday with some lower abdominal fullness
appreciate oncology input
brother updated 12/04
Subjective
Subjective
Date of Service: December 05, 2024
Pt still with some difficulty with eating no stools some feeling of lower abdominal fullness
Objective
Data Reviewed
Laboratory Data:
Laboratory Results
12/04/24 08:03
12/04/24 08:03
Laboratory Results
PT 15.2 Sec (11.4-14.6) H 12/02/24 04:23
INR 1.16 12/02/24 04:23
APTT 34.6 Sec (23.4-35.0) 12/02/24 04:23
Total Bilirubin 0.8 mg/dl (0.2-1.3) 12/04/24 08:03
AST 16 U/L (17-59) L 12/04/24 08:03
ALT < 10 U/L (0-50) 12/04/24 08:03
Alkaline Phosphatase 57 U/L (38-126) 12/04/24 08:03
Lipase 193 U/L (23-300) 12/01/24 14:32
Vital Signs and I&O:
Vital Signs
Temp Pulse Resp BP Pulse Ox
98.0 F 76 15 109/73 99
12/05/24 07:20 12/05/24 07:20 12/05/24 07:20 12/05/24 07:20 12/05/24 07:20
I&O
12/04/24 12/05/24 12/06/24
06:59 06:59 06:59
Intake Total 2240 / 2240 2640 / 2640
Output Total 450 / 450 425 / 425
Balance 1790 / 1790 2215 / 2215
Physical Exam
Physical Exam
HEENT: Anicteric and Moist mucous membranes
Cardiology: Normal Sinus Rhythm
Pulmonary: Clear
GI: Soft, Distended and Tender (minimal )
Extremities: No Edema
Neuro: Non Focal
[2024-12-05] MEDS: NSS (PRESERVATIVE FREE) 10 ML IV ×2 (09:33→20:49)
[2024-12-05] MEDS: MIRALAX 17 GRAMS PO (09:33)
[2024-12-05] MEDS: PROTONIX IV 40 MG IV ×2 (09:33→20:50)
--- NOTE | 2024-12-05 09:38 | W.PN.HOSP.TC ---
Today's Communication/Plan
-
Follow-up pathology, depending on findings of pathology may go towards systemic treatment versus hospice
Will need to address feeding source at this time clear liquid diet with ensures 3 times daily may have to suffice
Continue to have goals of care discussions
Assessment / Plan
Assessment / Plan
NAD, thin cachectic temporal wasting
Scleral Anicteric
MMM, poor oral dentition
No JVD
CTABL
RRR, S1/S2
Tense, NT, Distended, BS+
Warm, Dry
AAOx3
Tearful/depressed
Dysphagia secondary to suspected esophageal cancer
S/p EGD, able to obtain multiple biopsies from different sites however report is concerning for necrotic mass/false lumen unable to safely stent at the time of the EGD
-Pathology pending from egd and para.
UGI as obtained, able to allow for contrast to pass small amount of bile, started on clear liquid diet, GI to speak with advanced endoscopist to review imaging for potential esophageal stent
-If unable to provide stent may require a discussion for alternative sources of feeding. Difficult for peg placement due to inability to insufflate stomach, additionally ascites/omental caking makes surgical approach difficult, due to narrowing of
esophagus from neoplasm unable to pass the scope safely
--TPN increases risk of line infection and if picc line/port also would need for chemo
-Though started on a liquid diet would add Ensure with small sips to allow for some nutritional intake
IV fluids�dextrose containing
Yes we are waiting on pathology but I think the biggest question we need to figure out his nutritional status at. If he is not able to receive the nutritional support he needs he will not be able to tolerate chemo and probably would not be a
candidate for chemo at that point.
Will need to continue having goals of care discussions with
Large volume ascites,'s SAAG 0.9, likely related to omental caking
2.9 L removed
Follow-up cytology
Fungating mass
Surgery consult for biopsy
Hyponatremia, hypovolemic
start D5 NS
Leukocytosis without evidence of infection, afebrile, will continue to monitor, likely reactive in the setting of malignancy
Will follow for now if, getting worse becomes febrile then would obtain blood cultures start antibiotics
Anticipated Discharge: > 48 hours
Subjective/Interval History
-
Date of Service: December 05, 2024
Seen and examined. No new complaints. No acute overnight events.
Tells me he is about to drink half and have a Ensure added time. Otherwise denies feeling more bloated and nauseous
States that his abdominal fluid is reaccumulating
He states that he is losing hope and saying that he has pretty advanced cancer because it spread everywhere
Objective Data
-
Vital Signs:
Vital Signs
Temp Pulse Resp BP Pulse Ox
98.0 F 76 15 109/73 99
12/05/24 07:20 12/05/24 07:20 12/05/24 07:20 12/05/24 07:20 12/05/24 07:20
I&O
12/04/24 12/05/24 12/06/24
06:59 06:59 06:59
Intake Total 2240 / 2240 2640 / 2640
Output Total 450 / 450 425 / 425
Balance 1790 / 1790 2215 / 2215
--- NOTE | 2024-12-05 13:00 | PTCARENOTE ---
"Patient assisted x1 to stand at side of bed. Voided 300cc dark felisa urine. Post void bladder scan reading 839- unable to determine if urine detected or ascites. Patient with no further urge to void. Offered a straight cath. Patient refused. "Gary"Heath made aware with no new orders. Will continue to monitor. "
--- NOTE | 2024-12-05 14:00 | PTCARENOTE ---
Patient with no BM after drinking Miralax. Offered suppository but patient declined stating 'maybe after my family leaves'. Will continue to reassess.
[2024-12-05 15:50] VITALS: BP 112/73
[2024-12-05] MEDS: DULCOLAX 10 MG RECTAL (17:11)
[2024-12-05] MEDS: FLUSH (NSS) 1 FLUSH IV (20:50)
[2024-12-05] MEDS: ALPRAZOLAM ODT 0.25 MG PO (23:37)
[2024-12-05 23:52] VITALS: BP 124/82
--- NOTE | 2024-12-06 01:08 | PTCARENOTE ---
Pt aaox3 able to make his needs known.Pt denies need of pain meds at this time c/o 4/10 back pain. Pt oob with 1 person assist to bathroom,pt had 2 small BM. Pt was offered enema,refusing for it & wants to wait & see. Plan of care continued on
pt.Call shah in reach.
[2024-12-06 07:00] VITALS: BP 116/73
--- NOTE | 2024-12-06 07:06 | PTCARENOTE ---
Pt aaox3 able to make his needs known.Pt was provided with prn xanax as needed. Pt refused for weight this morning & voided twice overnight. Plan of care continued.
[2024-12-06 07:25] LABS: Hematocrit 36.2 % (39.0-52.0); Hemoglobin 12.2 g/dL (13.0-18.0); Mean Corp Hgb Conc. 33.7 g/dL (33.0-37.0); Mean Corpuscular Volume 83.2 fL (80.0-94.0); Mean Platelet Volume 8.9 fL (7.4-10.4); Platelet Count 368 10^3/uL (130-400); Red Blood Cell Count 4.35 10^6/uL (4.70-6.10); Red Cell Dist. Width 13.4 % (11.5-14.5); White Blood Cell Count 15.9 10^3/uL (4.8-10.8)
[2024-12-06 07:51] LABS: Blood Urea Nitrogen 27 mg/dl (9-20); Calcium 7.7 mg/dl (8.4-10.2); Carbon Dioxide 23 mmol/L (22-30); Chloride 105 mmol/L (98-107); Estimated Creatinine Clearance 84 ml/min; Glucose 141 mg/dl (70-99); Potassium 3.8 mmol/L (3.5-5.1); Sodium 136 mmol/L (135-145); eGFR > 60.00
[2024-12-06] MEDS: NSS (PRESERVATIVE FREE) 10 ML IV ×2 (08:44→21:07)
[2024-12-06] MEDS: PROTONIX IV 40 MG IV ×2 (08:44→21:07)
[2024-12-06] MEDS: MIRALAX 17 GRAMS PO (08:44)
--- NOTE | 2024-12-06 09:40 | W.PN.HOSP.TC ---
Today's Communication/Plan
-
GI and advanced endoscopy to review imaging for potential esophageal stent
Pain management unfortunately long-acting Oxy cannot be crushed therefore we will discontinue short acting oxycodone start morphine liquid every 4 as needed 10 mg
Increase Xanax to 0.5 crushed
Clear liquid diet ensures 3 times daily
Await pathology from peritoneal fluid and esophageal biopsy
IR consult for repeat paracentesis
D5 NS at a rate of 60 to continue providing caloric intakes if not able to tolerate
Continue bowel regimen
GI, oncology, IR
Assessment / Plan
Assessment / Plan
NAD, thin cachectic temporal wasting
Scleral Anicteric
MMM, poor oral dentition
No JVD
CTABL
RRR, S1/S2
Tense, NT, Distended, BS+
Warm, Dry
AAOx3
Tearful/depressed
Dysphagia secondary to suspected esophageal cancer
S/p EGD, able to obtain multiple biopsies from different sites however report is concerning for necrotic mass/false lumen unable to safely stent at the time of the EGD
-Pathology pending from egd and para.
UGI as obtained, able to allow for contrast to pass small amount of bile, started on clear liquid diet, GI to speak with advanced endoscopist to review imaging for potential esophageal stent
-If unable to provide stent may require a discussion for alternative sources of feeding. Difficult for peg placement due to inability to insufflate stomach, additionally ascites/omental caking makes surgical approach difficult, due to narrowing of
esophagus from neoplasm unable to pass the scope safely
--TPN increases risk of line infection and if picc line/port also would need for chemo
-Though started on a liquid diet would add Ensure with small sips to allow for some nutritional intake
IV fluids�dextrose containing
Yes we are waiting on pathology but I think the biggest question we need to figure out his nutritional status at. If he is not able to receive the nutritional support he needs he will not be able to tolerate chemo and probably would not be a
candidate for chemo at that point.
Will need to continue having goals of care discussions with
Large volume ascites,'s SAAG 0.9, likely related to omental caking
2.9 L removed
Follow-up cytology
Fungating mass
Surgery consult for biopsy
Hyponatremia, hypovolemic, improving
Continue D5 NS
Leukocytosis without evidence of infection, afebrile, will continue to monitor, likely reactive in the setting of malignancy
Will follow for now if, getting worse becomes febrile then would obtain blood cultures start antibiotics
Anticipated Discharge: > 48 hours
Subjective/Interval History
-
Date of Service: December 06, 2024
Seen and examined. No new complaints. No acute overnight events.
Pain still unbearable
Xanax did not help
Objective Data
-
Labs:
Laboratory Results
12/06/24
06:16
WBC 15.9 H
Hgb 12.2 L
Hct 36.2 L
Plt Count 368
Sodium 136
Potassium 3.8
Chloride 105
Carbon Dioxide 23
BUN 27 H
Creatinine 0.7
Glucose 141 H
Calcium 7.7 L
Vital Signs:
Vital Signs
Temp Pulse Resp BP Pulse Ox
98.2 F 77 20 116/73 98
12/06/24 07:00 12/06/24 07:00 12/06/24 07:00 12/06/24 07:00 12/06/24 07:00
I&O
12/05/24 12/06/24 12/07/24
06:59 06:59 06:59
Intake Total 2640 / 2640 360 / 360
Output Total 425 / 425 300 / 300
Balance 2215 / 2215 60 / 60
[2024-12-06] MEDS: D5/0.9% SODIUM CHLORIDE 1000 IV (09:53)
[2024-12-06] MEDS: MORPHINE ORAL SOLUTION 10 MG PO (11:01)
--- NOTE | 2024-12-06 12:47 | W.PN.GI.CBS2 ---
Today's Communication / Plan
-
N.p.o. after midnight for potential stent pending Dr. Ramirez's review information
No need to check labs every day
Assessment / Plan
-
74-year-old male with no significant past medical history who does not seek routine care, family history of lymphoma and breast cancer, drinks 2 alcoholic beverages a day not on any medication presents to the emergency room with approximately
6-month history of 3 inch x 3 and fungating sternal mass and 2-month history of dysphagia to solids and liquids with weight loss ? 25 lbs +. Imaging and EGD as below with concern for metastatic process.
12/01 CT a/p IV
Possible distal esophageal mural mass. Upper GI examination/direct visualization recommended
3 cm hypodense hepatic lesion. This may be benign or malignant. MRI examination recommended.
Omental caking suggesting metastatic disease.
Large amount of abdominal pelvic ascites.
Moderate fecal material throughout the colon.
Moderate hiatal hernia
12/02 para 2900ml WBC neg SBP
12/02 CT neck No evidence of acute nor metastatic disease of the neck.
Mild nonacute right maxillary sinusitis.
Less than grade 1 anterolisthesis of C7 on T1.
12/[address] Toribio - Near-completely obstructing, malignant-appearing
esophageal mass found in the distal esophagus at 35
cms from the incisors. Beyond this area, there was
extensive ulceration and necrosis. The lumen could not
be found given extensive necrotic appearing tissue.
Possibly resulting in a false lumen beyond the mass.
Multiple biopsies obtained (sent for addison).
- Could not further evaluate the GE junction, stomach,
or duodenum due to the nearly fully obstructing mass
12/03 esophagram
Partially obstructing irregular mass of the distal thoracic esophagus, suspicious for malignancy.
Impression:
distal esophageal mural mass
Fungating sternal mass
ascites s/p para 12/[address] concern for mets
liver lesions
leukocytosis
hyponatremia
Dysphagia
constipation
Weight loss
mod HH
s/p EGD and imaging as above with concern for esophageal malignancy with mets (ascites, omental caking, liver lesions)
await path from EGD and ascites fluid
cont liquid diet as taking minimal- cont supplement - monitor intakes
cont Miralax daily will add dulcolax and enema as needed - did have a couple of BMs after the suppository
cont PPI
may need repeat para on Saturday with some lower abdominal fullness
appreciate oncology input
brother updated 12/04
12/06/2024 -discussed with primary team. Would increase benzodiazepines as the current one he did not feel. Consider morphine to help with his pain. Continue bowel regimen in the setting of narcotics.
I discussed with Dr. Ramirez and he is going to review all of his information in the morning and determine if he could potentially place a stent tomorrow afternoon
Path is still pending
Subjective
Subjective
Date of Service: December 06, 2024
Patient states that benzodiazepines did not touch him. Still having pain in the epigastric and lower abdominal area. Barely able to take in any liquids. He did have a good couple of bowel movements yesterday after getting a suppository
Objective
Data Reviewed
Laboratory Data:
Laboratory Results
12/06/24 06:16
12/06/24 06:16
Laboratory Results
PT 15.2 Sec (11.4-14.6) H 12/02/24 04:23
INR 1.16 12/02/24 04:23
APTT 34.6 Sec (23.4-35.0) 12/02/24 04:23
Total Bilirubin 0.8 mg/dl (0.2-1.3) 12/04/24 08:03
AST 16 U/L (17-59) L 12/04/24 08:03
ALT < 10 U/L (0-50) 12/04/24 08:03
Alkaline Phosphatase 57 U/L (38-126) 12/04/24 08:03
Lipase 193 U/L (23-300) 12/01/24 14:32
Vital Signs and I&O:
Vital Signs
Temp Pulse Resp BP Pulse Ox
98.2 F 77 20 116/73 98
12/06/24 07:00 12/06/24 07:00 12/06/24 07:00 12/06/24 07:00 12/06/24 08:40
I&O
12/05/24 12/06/24 12/07/24
06:59 06:59 06:59
Intake Total 2640 / 2640 360 / 360
Output Total 425 / 425 300 / 300
Balance 2215 / 2215 60 / 60
Physical Exam
Physical Exam
HEENT: Anicteric
GI: Soft and Tender
Neuro: Non Focal
[2024-12-06 15:50] VITALS: BP 115/79
[2024-12-06 23:55] VITALS: BP 125/87
[2024-12-07] VITALS (8 sets, daily range): BP systolic 78–151; BP diastolic 70–93
[2024-12-07] MEDS: MORPHINE ORAL SOLUTION 10 MG PO (00:13)
[2024-12-07] MEDS: ZOFRAN 4 MG IV (00:14)
[2024-12-07] MEDS: D5/0.9% SODIUM CHLORIDE 1000 IV (03:09)
--- NOTE | 2024-12-07 06:01 | PTCARENOTE ---
Pt aaox3 able to make his needs known.Pt NPO from this morning. Pt provided with prn pain meds & nausea meds as needed. Pt refusing to use the urinal this morning & refusing to be weighed.Pt wants to stand up later to void & prefers to sleep,pt
refusing for any rectal suppository,Last small BM was on 12/05.Plan of care continued.
--- NOTE | 2024-12-07 08:27 | W.PN.HOSP.TC ---
Today's Communication/Plan
-
N.p.o. for potential stent today
Pending CT abdomen pelvis
Assessment / Plan
Assessment / Plan
#Dysphagia
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
N.p.o. after midnight this morning for potential stenting
CT scan showed masslike thickening of distal esophagus with evidence of diffuse intra-abdominal disease and peritoneal carcinomatosis
CT chest/neck shows distal esophageal thickening, abdominal ascites
Pending pathology results
Continue liquid morphine every 4 hours as needed�10 mg
Xanax increased to 0.5 crushed
Continue IVF and pantoprazole
Oncology on board appreciate input
surgery on board, appreciate input
IR consulted for therapeutic thoracentesis. 2900 cc removed, negative for any growth.
Oncology recommending outpatient PET scan
#Abdominal distention
Patient had 2.9 L of fluid removed via paracentesis on 12/02
CT abdomen pelvis with IV contrast ordered for recurrent distention and discomfort
Consider consulting IR for repeat paracentesis
#Protein calorie malnutrition
Likely secondary to dysphagia from esophageal cancer
Continue Ensure 3 times a day
#chest wall mass
large, fungating mass in center of chest
6+ months of growth, now weeping fluids
surgery following
oncology on board
#hyponatremia
likely secondary to poor PO intake
continue IVF
#leukocytosis
likely reactive. no evidence of acute infection
observe
DVT Proph- SCD
Full code
Anticipated Discharge: > 48 hours
Subjective/Interval History
-
Date of Service: December 07, 2024
Overnight, he continues to have some mild discomfort with swallowing, but is able to have some Ensure. He states that his abdomen is feeling more distended and uncomfortable over the last 2 days. He is currently NPO. He reports no headaches,
vomiting, chest pain, shortness of breath, numbness or tingling. He continues to have some nausea especially after medication. He states that over the weekend his brother and niece came to visit him which he enjoyed.
Objective Data
-
Vital Signs:
Vital Signs
Temp Pulse Resp BP Pulse Ox
97.9 F 88 18 125/87 97
12/06/24 23:55 12/06/24 23:55 12/06/24 23:55 12/06/24 23:55 12/06/24 23:55
I&O
12/06/24 12/07/24 12/08/24
06:59 06:59 06:59
Intake Total 360 / 360 1200 / 1200
Output Total 300 / 300 300 / 300
Balance 60 / 60 900 / 900
Review of Systems
-
History Source: Patient
Constitutional: Reports Weight Loss
EENT: Reports Other (Dysphagia)
Respiratory: Reports No Symptoms
Cardiac: Reports No Symptoms
Abdomen/GI: Reports Nausea and Bloated
Genitourinary: Reports No Symptoms
Musculoskeletal: Reports No Symptoms
Physical Exam
-
General: Appears Chronically Ill and Cachectic
HEENT: Normocephalic and Atraumatic; Negative Moist Mucous Membranes
Respiratory: Clear to Auscultation
Cardiac: Regular Rhythm and S1/S2
GI: Soft, Nontender and Distended
Musculoskeletal: No Cyanosis, No Edema and Clubbing
Skin: Warm and Dry
Neuro: AO x 3
Psych: Calm
[2024-12-07] MEDS: PROTONIX IV 40 MG IV ×2 (08:33→21:14)
[2024-12-07] MEDS: NSS (PRESERVATIVE FREE) 10 ML IV ×2 (08:34→21:16)
--- NOTE | 2024-12-07 09:30 | CM ---
Patient is continuing to get medical w/u. Functionally appears he is at baseline. Will follow for needs as patient lives alone.
Plan: Case management will continue to follow and assist with discharge planning. Will watch for patient needs due to dx.
[2024-12-07] MEDS: MIRALAX PO (13:07)
--- NOTE | 2024-12-07 13:12 | W.PN.UPDATE ---
Update Note
Progress Note Update
I saw and evaluated the patient. I reviewed the resident�s note and agree with findings and plan as documented in the resident�s note.
No new complaints.
Gen: NAD, AAOx3, appears chronically ill, cachectic, malnourished.
Eyes: EOMI, PERRLA, no scleral icterus.
Neck: supple.
CV: RRR, +S1/S2, no m/r/g.
Resp: CTAB, no rales, wheezes, or rhonchi.
Abd: +BS, soft, NT, ND
Skin: No rashes.
Neuro: CN 2-12 intact, non-focal.
Psych: Normal mood and affect.
CT A/P 12/01/24: Possible distal esophageal mural mass. Upper GI examination/direct visualization recommended. 3 cm hypodense hepatic lesion. This may be benign or malignant. Omental caking suggesting metastatic disease. Large amount of abdominal
pelvic ascites. Moderate fecal material throughout the colon. Moderate hiatal hernia
CT chest w/IV 12/02/24: No acute disease of the chest. Distal esophageal wall thickening concerning for esophageal carcinoma. Moderate abdominal ascites and omental caking suggesting metastatic disease. Right middle lobe solid noncalcified 7 mm
pulmonary nodule versus bifurcation of vessels. This could further be evaluated by PET imaging or comparison to outside studies if any exist.
CT Neck 12/02/24: No evidence of acute nor metastatic disease of the neck. Mild nonacute right maxillary sinusitis.
Esophagram 12/03/24: Partially obstructing irregular mass of the distal thoracic esophagus, suspicious for malignancy.
CT A/P 12/07/24: Low-attenuation right lobe hepatic lesion not as well appreciated as on recent prior study. Massive ascites, likely increased in volume in the abdomen in comparison to recent prior study. Findings again seen suggesting some possible
omental caking/carcinomatosis. Pathology results of recent prior paracentesis pending. Hiatal hernia again suspected as well as possible mass at the gastroesophageal junction. Malignancy is the diagnosis of exclusion. Recent biopsy results pending.
Small left and tiny right pleural effusions.
Dysphagia due to suspected esophageal cancer, ascites due to omental cakaing:
-s/p EGD, able to obtain multiple biopsies from different sites however report is concerning for necrotic mass/false lumen unable to safely stent at the time of the EGD
-Pathology pending from EGD and paracentesis
-s/p paracentesis 12/02/24 for 2900cc
-s/p paracentesis 12/07/24 for 5000cc
-for esophageal stent placement later today
-currently NPO, will advanced diet once cleared by GI after stent placement
-cont D5NS
-GI following, ONC saw in c/s. I've asked ONC to follow up with pt on 12/08/24.
Other problems:
Hyponatremia, resolved with IVFs (was hypovolemic)
Leukocytosis, likely reactive
FULL code
Regarding DVT prophylaxis, the patient has not been on pharmacological DVT prophylaxis during this hospitalization (confirmed with pharmacy). Starting Lovenox tonight (for esophageal stent at 1600 today so do not want to give just before procedure).
Also recommend continuing SCDs (needs both mechanical and pharmacological DVT prophylaxis.
Total time spent on today's encounter was 50 minutes which included time spent in counseling the patient/family regarding diagnosis and treatment plan as listed above, goals of care, and symptom management. Case was discussed with nursing staff,
specialists, and care coordinators/case management. All labs and imaging personally reviewed by me. Remainder the time spent in detailed review of previous records, lab data, imaging, and other medical provider documentation.
[2024-12-07 13:21] LABS: Body Fluid Mononuclear 82.6 %; Body Fluid Polymorphonuclear 17.4 %; Body Fluid WBC 864 /CUMM
[2024-12-07 13:31] LABS: Body Fluid Second Tech AMA
--- NOTE | 2024-12-07 13:52 | W.PN.UPDATE ---
Update Note
Progress Note Update
Patient was placed on pneumatic compression sleeves on date of admission (12/02) for DVT prophylaxis. Per conversation with nursing, patient has been refusing SCDs during hospital stay.
[2024-12-07] MEDS: ALPRAZOLAM ODT 0.5 MG PO (17:36)
[2024-12-07] MEDS: LOVENOX 40 MG SC (19:24)
[2024-12-07] MEDS: FLUSH (NSS) 2 FLUSH IV (21:27)
[2024-12-08] MEDS: D5/0.9% SODIUM CHLORIDE 1000 IV ×2 (00:53→17:18)
[2024-12-08] MEDS: D5/0.9% SODIUM CHLORIDE IV (02:50)
[2024-12-08] MEDS: FLUSH (NSS) 2 FLUSH IV (03:47)
[2024-12-08] MEDS: ZOFRAN 4 MG IV ×3 (03:47→23:33)
[2024-12-08] MEDS: MIRALAX 17 GRAMS PO (07:38)
[2024-12-08] MEDS: NSS (PRESERVATIVE FREE) 10 ML IV ×2 (07:38→20:05)
[2024-12-08] MEDS: PROTONIX IV 40 MG IV ×2 (07:38→20:05)
[2024-12-08] MEDS: ALPRAZOLAM ODT 0.5 MG PO (07:38)
[2024-12-08 07:55] VITALS: BP 114/68
--- NOTE | 2024-12-08 08:38 | W.PN.GI.CBS2 ---
Today's Communication / Plan
-
Please see assessment and plan for details.
Assessment / Plan
-
1. Esophageal CA: With nearly obstructing mass, now status post esophageal stent, overall doing okay. At this point would continue PPI twice daily and dietary modifications, advance to full liquid diet today. Patient has brochure about diet after
esophageal stent, would avoid bulky foods such as raw vegetables, large pieces of meat etc. We will sign off for now, please call back with any further questions.
Subjective
Subjective
Date of Service: December 08, 2024
Patient feeling okay, had significant heartburn after procedure yesterday though tolerated clears, no significant pain, fever or chills.
Objective
Data Reviewed
Laboratory Data:
Laboratory Results
12/06/24 06:16
12/06/24 06:16
Laboratory Results
PT 15.2 Sec (11.4-14.6) H 12/02/24 04:23
INR 1.16 12/02/24 04:23
APTT 34.6 Sec (23.4-35.0) 12/02/24 04:23
Total Bilirubin 0.8 mg/dl (0.2-1.3) 12/04/24 08:03
AST 16 U/L (17-59) L 12/04/24 08:03
ALT < 10 U/L (0-50) 12/04/24 08:03
Alkaline Phosphatase 57 U/L (38-126) 12/04/24 08:03
Lipase 193 U/L (23-300) 12/01/24 14:32
Vital Signs and I&O:
Vital Signs
Temp Pulse Resp BP Pulse Ox
97.3 F 79 16 114/68 98
12/08/24 07:55 12/08/24 07:55 12/08/24 07:55 12/08/24 07:55 12/08/24 07:55
I&O
12/07/24 12/08/24 12/09/24
06:59 06:59 06:59
Intake Total 1200 / 1200 1290 / 1290
Output Total 300 / 300 825 / 825
Balance 900 / 900 465 / 465
Physical Exam
Physical Exam
General: NAD
Abdomen: normal bowel sounds, soft, no tenderness, no masses or bruits, no ascites
--- NOTE | 2024-12-08 08:54 | W.PN.HOSP.TC ---
Today's Communication/Plan
-
progress diet to full liquid diet
Assessment / Plan
Assessment / Plan
#Dysphagia
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
Esophageal stenting completed on 12/[address] scan showed masslike thickening of distal esophagus with evidence of diffuse intra-abdominal disease and peritoneal carcinomatosis
CT AP on 12/07 shows R lobe hepatic lesion not appreciated on last study
CT chest/neck shows distal esophageal thickening, abdominal ascites
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
Continue liquid morphine every 4 hours as needed�10 mg
Xanax increased to 0.5 crushed
Continue IVF and pantoprazole. Single dose of Maalox given today.
Oncology on board appreciate input. Will follow-up with patient in the next week in office.
surgery on board, appreciate input
IR consulted for therapeutic thoracentesis. 2900 cc removed, negative for any growth. Repeat paracentesis drained 5000 cc.
Oncology recommending outpatient PET scan
#Abdominal distention
Patient had 2.9 L of fluid removed via paracentesis on 12/02
Repeat paracentesis on 12/07 had 5L of fluid drained
#Protein calorie malnutrition
Likely secondary to dysphagia from esophageal cancer
Continue Ensure 3 times a day
#chest wall mass
large, fungating mass in center of chest
6+ months of growth, now weeping fluids
surgery following
oncology on board
#hyponatremia
likely secondary to poor PO intake
continue IVF
#leukocytosis
likely reactive. no evidence of acute infection
observe
DVT Proph- Lovenox + SCD
Full code
Anticipated Discharge: > 48 hours
Subjective/Interval History
-
Date of Service: December 08, 2024
Overnight patient was experiencing significant reflux after stent placement. He states that he is nervous to swallow as he feels he will throw everything up. He reports no other symptoms. He continues maintain flat affect.
Objective Data
-
Vital Signs:
Vital Signs
Temp Pulse Resp BP Pulse Ox
97.3 F 79 16 114/68 98
12/08/24 07:55 12/08/24 07:55 12/08/24 07:55 12/08/24 07:55 12/08/24 07:55
I&O
12/07/24 12/08/24 12/09/24
06:59 06:59 06:59
Intake Total 1200 / 1200 1290 / 1290
Output Total 300 / 300 825 / 825
Balance 900 / 900 465 / 465
Review of Systems
-
History Source: Patient
Constitutional: Reports Weight Loss and No Appetite
EENT: Reports Sore Throat
Respiratory: Reports No Symptoms
Cardiac: Reports No Symptoms
Abdomen/GI: Reports Nausea, GERD and Indigestion
Genitourinary: Reports No Symptoms
Musculoskeletal: Reports No Symptoms
Physical Exam
-
General: Appears Chronically Ill and Cachectic
HEENT: Normocephalic and Atraumatic; Negative Moist Mucous Membranes
Respiratory: Clear to Auscultation
Cardiac: Regular Rhythm and S1/S2
GI: Soft, Nontender and Nondistended
Musculoskeletal: No Cyanosis, No Edema and Clubbing
Skin: Warm and Dry
Neuro: AO x 3
Psych: Calm and Depressed
Data Reviewed
-
Labs: Labs Reviewed by me and Discussed with Physician
Old Records: Reviewed
--- NOTE | 2024-12-08 09:41 | W.PN.UPDATE ---
Update Note
Progress Note Update
I saw and evaluated the patient. I reviewed the resident�s note and agree with findings and plan as documented in the resident�s note.
Pt c/o weakness and heartburn.
Gen: NAD, AAOx3, appears chronically ill, cachectic, malnourished.
Eyes: EOMI, PERRLA, no scleral icterus.
Neck: supple.
CV: remains RRR, +S1/S2, no m/r/g.
Resp: CTAB anteriorly, no rales, wheezes, or rhonchi.
Abd: remains +BS, soft, NT, ND
Skin: No rashes.
Neuro: CN 2-12 intact, non-focal.
Psych: Normal mood and affect.
CT A/P 12/01/24: Possible distal esophageal mural mass. Upper GI examination/direct visualization recommended. 3 cm hypodense hepatic lesion. This may be benign or malignant. Omental caking suggesting metastatic disease. Large amount of abdominal
pelvic ascites. Moderate fecal material throughout the colon. Moderate hiatal hernia
CT chest w/IV 12/02/24: No acute disease of the chest. Distal esophageal wall thickening concerning for esophageal carcinoma. Moderate abdominal ascites and omental caking suggesting metastatic disease. Right middle lobe solid noncalcified 7 mm
pulmonary nodule versus bifurcation of vessels. This could further be evaluated by PET imaging or comparison to outside studies if any exist.
CT Neck 12/02/24: No evidence of acute nor metastatic disease of the neck. Mild nonacute right maxillary sinusitis.
Esophagram 12/03/24: Partially obstructing irregular mass of the distal thoracic esophagus, suspicious for malignancy.
CT A/P 12/07/24: Low-attenuation right lobe hepatic lesion not as well appreciated as on recent prior study. Massive ascites, likely increased in volume in the abdomen in comparison to recent prior study. Findings again seen suggesting some possible
omental caking/carcinomatosis. Pathology results of recent prior paracentesis pending. Hiatal hernia again suspected as well as possible mass at the gastroesophageal junction. Malignancy is the diagnosis of exclusion. Recent biopsy results pending.
Small left and tiny right pleural effusions.
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
-s/p EGD, able to obtain multiple biopsies from different sites however report is concerning for necrotic mass/false lumen unable to safely stent at the time of the EGD
-Pathology from EGD showed esophageal adenocarcinoma, moderately differentiated. No lymphovascular invasion identified.
-s/p paracentesis 12/02/24 for 2900cc
-s/p paracentesis 12/07/24 for 5000cc
-s/p esophageal stent placement 12/07/34
-advanced to full liquids
-cont D5NS for now
-case discussed with Drs. Cartagena and Sveta and both have cleared the pt for discharge.
Other problems:
Hyponatremia, resolved with IVFs (was hypovolemic)
Leukocytosis, likely reactive
FULL code
Lovenox + SCDs
Medically cleared for d/c, case management aware.
--- NOTE | 2024-12-08 09:53 | W.PN.ONC ---
Today's Communication / Plan
-
Reviewed esoph bx c/w esophageal adenocarcinoma, pMMR, Her2 neg, PDL1 pending
Cytology from ascites still pending
Clinical picture c/w stage IV disease
PO diet as able, encouraged increased calories and protein
paracenteses prn
Will arrange outpatient onc f/u within the next week, to discuss treatment options, including chemo, possibly immunotherapy, palliative radiation. Our sexual assault nurse will reach out to him.
Okay for d/c from an onc standpoint if able to tolerate po diet
Impression
Impression
distal esophageal mural mass (bx c/w mod diff esoph adenoca, pMMR, Her2 neg, PDL1 pending), 3cm hypodense hepatic lesions, omental caking, large ascites (cytology pending) -c/w stage IV esophageal cancer
RML 7mm pulmonary nodule vs bifurcation of vessels
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
s/p para 2900cc drained 12/02, 5L drained 12/07/24. SAAG 0.9�likely secondary to omental caking
Dysphagia and weight loss
Plan
Plan
Reviewed esoph bx c/w esophageal adenocarcinoma, pMMR, Her2 neg, PDL1 pending
Cytology from ascites still pending
Clinical picture c/w stage IV disease
PO diet as able, encouraged increased calories and protein
paracenteses prn
Will arrange outpatient onc f/u within the next week, to discuss treatment options, including chemo, possibly immunotherapy, palliative radiation. Our sexual assault nurse will reach out to him.
Okay for d/c from an onc standpoint if able to tolerate po diet
Subjective/Objective
Subjective/Objective
c/o heartburn overnight
Miralax in water at bedside, swallowing with some difficulty
Vital Signs:
Vital Signs
Temp Pulse Resp BP Pulse Ox
97.3 F 79 16 114/68 98
12/08/24 07:55 12/08/24 07:55 12/08/24 07:55 12/08/24 07:55 12/08/24 07:55
Lab Results:
Laboratory Data
WBC 15.9 10^3/uL (4.8-10.8) H 12/06/24 06:16
Hgb 12.2 g/dL (13.0-18.0) L 12/06/24 06:16
Plt Count 368 10^3/uL (130-400) 12/06/24 06:16
PT 15.2 Sec (11.4-14.6) H 12/02/24 04:23
INR 1.16 12/02/24 04:23
APTT 34.6 Sec (23.4-35.0) 12/02/24 04:23
eGFR > 60.00 12/06/24 06:16
[2024-12-08] MEDS: MAALOX 30 ML PO (10:16)
[2024-12-08 11:18] LABS: Hematocrit 38.2 % (39.0-52.0); Hemoglobin 12.6 g/dL (13.0-18.0); Mean Corpuscular Hgb 27.2 pg (27.0-31.0); Mean Corpuscular Volume 82.5 fL (80.0-94.0); Mean Platelet Volume 8.8 fL (7.4-10.4); Platelet Count 346 10^3/uL (130-400); Red Blood Cell Count 4.63 10^6/uL (4.70-6.10); Red Cell Dist. Width 13.8 % (11.5-14.5); White Blood Cell Count 18.2 10^3/uL (4.8-10.8)
[2024-12-08 11:27] LABS: Blood Urea Nitrogen 27 mg/dl (9-20); Calcium 7.9 mg/dl (8.4-10.2); Carbon Dioxide 25 mmol/L (22-30); Chloride 104 mmol/L (98-107); Estimated Creatinine Clearance 83 ml/min; Glucose 117 mg/dl (70-99); Potassium 4.1 mmol/L (3.5-5.1); Sodium 135 mmol/L (135-145); eGFR > 60.00
[2024-12-08 12:45] VITALS: BP 110/72; PULSE 80; O2SAT 98
--- NOTE | 2024-12-08 14:32 | CM ---
Pt is being recommended for skilled rehab at this time
CM spoke w/ pt bedside who is agreeable to rehab but unsure if he is stable enough to go today. CM informed that hospitalist is saying he is medically stable for d/c today. Pt identified [facility], CM informed that [facility] does not have any
availability today and he will have to explore additional options. Pt was not aware of any other facilities and agreeable to CM to explore facilities in [facility]. CM did inform pt that multiple facilities are limited and may have to
expand search.
CM sent referrals in [facility], awaiting determinations
Plan: SNF; pending accepting facility
[2024-12-08 15:45] VITALS: BP 120/67
[2024-12-08] MEDS: LOVENOX 40 MG SC (17:17)
[2024-12-08 23:15] VITALS: BP 111/76
--- NOTE | 2024-12-08 23:35 | PTCARENOTE ---
Patient with c/o nausea, administered ordered Zofran IV. Hypoactive BS. No BM noted for three days. Patient refusing to try suppository. Chest dressing not been changed today. Patient refusing to get dressing changed. Patient is saying ' just want
to get some sleep', would like to wait until AM for suppository/ dressing change.
[2024-12-09] VITALS (7 sets, daily range): BP systolic 71–136; BP diastolic 72–81; PULSE 82–94; BMI 20.3
[2024-12-09] MEDS: NSS (PRESERVATIVE FREE) 10 ML IV ×2 (09:02→20:42)
[2024-12-09] MEDS: MIRALAX PO ×2 (09:02→09:10)
[2024-12-09] MEDS: PROTONIX IV 40 MG IV ×2 (09:03→20:42)
--- NOTE | 2024-12-09 09:56 | W.PN.UPDATE ---
Update Note
Progress Note Update
I saw and evaluated the patient. I reviewed the resident�s note and agree with findings and plan as documented in the resident�s note.
Pt c/o abdominal pain when he eats. Reports minimal oral intake. Complains that his abdomen is becoming more distended.
Gen: NAD, AAOx3, appears chronically ill, cachectic, malnourished.
Eyes: EOMI, PERRLA, no scleral icterus.
Neck: supple.
CV: Continues to remain RRR, +S1/S2, no m/r/g.
Resp: remains CTAB anteriorly, no rales, wheezes, or rhonchi.
Abd: +BS, soft, mild to moderate distention with ascites, diffuse tenderness palpation with guarding
Skin: No rashes.
Neuro: CN 2-12 intact, non-focal.
Psych: Normal mood and affect.
CT A/P 12/01/24: Possible distal esophageal mural mass. Upper GI examination/direct visualization recommended. 3 cm hypodense hepatic lesion. This may be benign or malignant. Omental caking suggesting metastatic disease. Large amount of abdominal
pelvic ascites. Moderate fecal material throughout the colon. Moderate hiatal hernia
CT chest w/IV 12/02/24: No acute disease of the chest. Distal esophageal wall thickening concerning for esophageal carcinoma. Moderate abdominal ascites and omental caking suggesting metastatic disease. Right middle lobe solid noncalcified 7 mm
pulmonary nodule versus bifurcation of vessels. This could further be evaluated by PET imaging or comparison to outside studies if any exist.
CT Neck 12/02/24: No evidence of acute nor metastatic disease of the neck. Mild nonacute right maxillary sinusitis.
Esophagram 12/03/24: Partially obstructing irregular mass of the distal thoracic esophagus, suspicious for malignancy.
CT A/P 12/07/24: Low-attenuation right lobe hepatic lesion not as well appreciated as on recent prior study. Massive ascites, likely increased in volume in the abdomen in comparison to recent prior study. Findings again seen suggesting some possible
omental caking/carcinomatosis. Pathology results of recent prior paracentesis pending. Hiatal hernia again suspected as well as possible mass at the gastroesophageal junction. Malignancy is the diagnosis of exclusion. Recent biopsy results pending.
Small left and tiny right pleural effusions.
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
-s/p EGD, able to obtain multiple biopsies from different sites however report is concerning for necrotic mass/false lumen unable to safely stent at the time of the EGD
-Pathology from EGD showed esophageal adenocarcinoma, moderately differentiated. No lymphovascular invasion identified.
-s/p paracentesis 12/02/24 for 2900cc
-s/p paracentesis 12/07/24 for 5000cc
-s/p esophageal stent placement 12/07/34
-advanced to full liquids
-case discussed with Drs. Cartagena and Sveta and both have cleared the pt for discharge.
-check abd U/S to assess if enough ascites for paracentesis
Other problems:
Hyponatremia, resolved with IVFs (was hypovolemic)
Leukocytosis, likely reactive
FULL code
Lovenox + SCDs
Dispo: will assess if enough ascites for paracentesis. Plan to discharge after. Unfortunately, if the patient continues to decline, he will likely be readmitted. If his functional status does not improve it is unlikely he will be a candidate for
cancer directed therapy.
--- NOTE | 2024-12-09 10:15 | W.PN.HOSP.TC ---
Today's Communication/Plan
-
Paracentesis today
Palliative care evaluation today
Assessment / Plan
Assessment / Plan
#Dysphagia
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
Esophageal stenting completed on 12/[address] scan showed masslike thickening of distal esophagus with evidence of diffuse intra-abdominal disease and peritoneal carcinomatosis
CT AP on 12/07 shows R lobe hepatic lesion not appreciated on last study
CT chest/neck shows distal esophageal thickening, abdominal ascites
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
Continue liquid morphine every 4 hours as needed�10 mg
Xanax increased to 0.5 crushed
Continue IVF and pantoprazole.
Oncology on board appreciate input. Will follow-up with patient in the next week in office.
surgery on board, appreciate input
IR consulted for therapeutic thoracentesis. 2900 cc removed, negative for any growth. Repeat paracentesis drained 5000 cc.
IR consulted on 12/09 for repeat paracentesis.
Oncology recommending outpatient PET scan
Palliative care consulted, appreciate input
#Abdominal distention
Patient had 2.9 L of fluid removed via paracentesis on 12/02
Repeat paracentesis on 12/07 had 5L of fluid drained.
Repeat paracentesis planned for today 12/09.
#Protein calorie malnutrition
Likely secondary to dysphagia from esophageal cancer
Continue Ensure 3 times a day
#chest wall mass
large, fungating mass in center of chest
6+ months of growth, now weeping fluids
surgery following
oncology on board
#hyponatremia
likely secondary to poor PO intake
continue IVF
#leukocytosis
likely reactive. no evidence of acute infection
observe
DVT Proph- Lovenox + SCD
Full code
Anticipated Discharge: 24 - 48 hours
Subjective/Interval History
-
Date of Service: December 09, 2024
Overnight patient reports that he is having abdominal discomfort again. He has poor appetite and is not able to tolerate the full liquid diet�unclear if it secondary to poor appetite or nausea. Patient is planned for repeat paracentesis and
palliative evaluations today.
Objective Data
-
Vital Signs:
Vital Signs
Temp Pulse Resp BP Pulse Ox
98.5 F 80 20 136/79 96
12/09/24 07:55 12/09/24 07:55 12/09/24 07:55 12/09/24 07:55 12/09/24 07:55
I&O
12/08/24 12/09/24 12/10/24
06:59 06:59 06:59
Intake Total 1290 / 1290 680 / 680
Output Total 825 / 825 650 / 650
Balance 465 / 465 30 / 30
Review of Systems
-
History Source: Patient
Constitutional: Reports Weight Loss, No Appetite and Fatigue
EENT: Reports Other
Respiratory: Reports No Symptoms
Cardiac: Reports No Symptoms
Abdomen/GI: Reports Nausea and GERD
Genitourinary: Reports No Symptoms
Musculoskeletal: Reports No Symptoms
Skin: Reports No Symptoms
Neuro: Reports Weakness
Psych: Reports Depressed
Physical Exam
-
General: Conversant, Appears Chronically Ill and Cachectic
HEENT: Normocephalic and Atraumatic; Negative Moist Mucous Membranes
Respiratory: Clear to Auscultation
Cardiac: Regular Rhythm and S1/S2
GI: Soft, Tender and Distended
Musculoskeletal: No Cyanosis, No Edema and Clubbing
Skin: Warm and Dry
Neuro: AO x 3
Psych: Calm
Data Reviewed
-
Labs: Labs Reviewed by me and Discussed with Physician
Old Records: Reviewed
--- NOTE | 2024-12-09 11:40 | CM ---
CM discussed rehab facilities w/ pt and brother at bedside yesterday. They shared concerns regarding pt's current full liquid diet and not agreeable to d/c to rehab in pt's condition. Pt's brother stated he does not have any strength and hasn't been
able to eat or swallow any food, not even water. Pt's brother mentioned he wanted to speak w/ the doctor to further discuss.
CM informed physician resident and hospitalist about pt and brother's concerns. Per hospitalist, he and specialists have reviewed w/ pt his medical condition and also provided hospice option.
Per nurse, palliative care consult has been ordered. Pt is for paracentesis today.
Plan: SNF being recommended. CM will await palliative assessment to determine how pt would like to proceed
--- NOTE | 2024-12-09 12:00 | PTCARENOTE ---
Received pt from IR post thorocentesis. Bandaid to LLQ abd D+I. VS stable. Will continue to monitor.
[2024-12-09 12:17] LABS: Body Fluid Mononuclear 81.9 %; Body Fluid Polymorphonuclear 18.1 %; Body Fluid WBC 1322 /CUMM
[2024-12-09 12:21] LABS: Body Fluid Second Tech ASW
--- NOTE | 2024-12-09 12:49 | PTCARENOTE ---
Pt ordered milk and molasses enema. Pt only able to tolerate 1/2 of enema ordered with return of only enema liquid, no stool noted. Dr. Holden and Resident Raciel made aware.
[2024-12-09] MEDS: CITROMA 300 ML PO (14:59)
[2024-12-09 15:00] LABS: Body Fluid Albumin < 1.0 g/dl; Body Fluid Protein < 2.0 g/dl
[2024-12-09 15:15] LABS: Body Fluid Amylase 31 U/L
[2024-12-09] MEDS: REGLAN 10 MG IV (15:46)
--- NOTE | 2024-12-09 16:39 | PTCARENOTE ---
Pt ordered Mag Citrate since milk and molasses enema ineffective. Pt instructed to sip when able. Pt able to take only tiny sips and c/o nausea. Dr. Holden aware that antiemetics previosly ordered(zofran and Compazine) were ineffective. Reglan 10mg IV
ordered and given. Pt stated 1/2 hour later that he felt worse after the Reglan and also that liquid feels like it is getting caught and backing up like before the stent was placed. Dr. Holden aware. Will continue to monitor.
[2024-12-09] MEDS: LOVENOX 40 MG SC (17:28)
[2024-12-09] MEDS: D5/0.45%NACL 1000 IV (17:59)
[2024-12-09 18:16] LABS: Body Fluid LDH 3110 U/L
[2024-12-10 06:00] VITALS: BMI 19.3
[2024-12-10 08:56] VITALS: BP 118/64; PULSE 82; O2SAT 98
[2024-12-10 09:00] VITALS: BP 118/64
--- NOTE | 2024-12-10 09:15 | CM ---
Addendum entered by Carson White 12/10/24 14:01:
Palliative assessed pt. Per Daniella, pt would like to go to rehab and have decided to not pursue hospice at this time. Pt would like to follow up w/ oncology as outpatient to discuss his treatment options.
CM met w/ pt bedside to discuss prev referrals sent for SNF and to review some accepting facilities. Pt stated he would want to remain in [place] but would like to talk to his brother first. CM informed pt that his d/c has been placed and a
facility will need to be identified to ensure there is a bed available. Pt requested for CM to come back later as he want to think about the facilities as he is not familiar w/ any of the accepting ones.
Original Note:
Chart reviewed. Pt is w/ a palliative care and hospice consult per hospitalist. Palliative to see pt today.
row boss director targeted marketing indicated that hospice will follow up today. Spoke w/ Valeria/ account liaison who stated will await until palliative sees pt before placing hospice referral.
CM will cont to follow for d/c planning needs
Plan: Palliative consult pending. Possible hospice?
[2024-12-10] MEDS: FLUSH (NSS) 1 FLUSH IV ×2 (09:29→15:12)
[2024-12-10] MEDS: NSS (PRESERVATIVE FREE) 10 ML IV ×2 (09:30→20:28)
[2024-12-10] MEDS: PROTONIX IV 40 MG IV ×2 (09:30→20:28)
[2024-12-10] MEDS: MIRALAX 17 GRAMS PO (09:30)
--- NOTE | 2024-12-10 09:30 | W.PN.UPDATE ---
Update Note
Progress Note Update
I saw and evaluated the patient. I reviewed the resident�s note and agree with findings and plan as documented in the resident�s note.
Pt reports some oral intake since yesterday. Complains of reflux symptoms.
Gen: NAD, AAOx3, appears chronically ill, cachectic, malnourished.
Eyes: EOMI, PERRLA, no scleral icterus.
Neck: supple.
CV: RRR, +S1/S2, no m/r/g.
Resp: continues to remain CTAB anteriorly, no rales, wheezes, or rhonchi.
Abd: +BS, soft, mild distention with ascites, NT
Skin: No rashes.
Neuro: CN 2-12 intact, non-focal.
Psych: Normal mood and affect.
CT A/P 12/01/24: Possible distal esophageal mural mass. Upper GI examination/direct visualization recommended. 3 cm hypodense hepatic lesion. This may be benign or malignant. Omental caking suggesting metastatic disease. Large amount of abdominal
pelvic ascites. Moderate fecal material throughout the colon. Moderate hiatal hernia
CT chest w/IV 12/02/24: No acute disease of the chest. Distal esophageal wall thickening concerning for esophageal carcinoma. Moderate abdominal ascites and omental caking suggesting metastatic disease. Right middle lobe solid noncalcified 7 mm
pulmonary nodule versus bifurcation of vessels. This could further be evaluated by PET imaging or comparison to outside studies if any exist.
CT Neck 12/02/24: No evidence of acute nor metastatic disease of the neck. Mild nonacute right maxillary sinusitis.
Esophagram 12/03/24: Partially obstructing irregular mass of the distal thoracic esophagus, suspicious for malignancy.
CT A/P 12/07/24: Low-attenuation right lobe hepatic lesion not as well appreciated as on recent prior study. Massive ascites, likely increased in volume in the abdomen in comparison to recent prior study. Findings again seen suggesting some possible
omental caking/carcinomatosis. Pathology results of recent prior paracentesis pending. Hiatal hernia again suspected as well as possible mass at the gastroesophageal junction. Malignancy is the diagnosis of exclusion. Recent biopsy results pending.
Small left and tiny right pleural effusions.
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
-s/p EGD, able to obtain multiple biopsies from different sites however report is concerning for necrotic mass/false lumen unable to safely stent at the time of the EGD
-Pathology from EGD showed esophageal adenocarcinoma, moderately differentiated. No lymphovascular invasion identified.
-s/p paracentesis 12/02/24 for 2900cc
-s/p paracentesis 12/07/24 for 5000cc
-s/p esophageal stent placement 12/07/34
-s/p paracentesis 12/09/24 for 2600cc
-advanced to LR/stent diet
-case discussed with Drs. Cartagena and Sveta and both have cleared the pt for discharge.
-check abd U/S to assess if enough ascites for paracentesis
Other problems:
Hyponatremia, resolved with IVFs (was hypovolemic)
Leukocytosis, likely reactive
FULL code
Lovenox + SCDs
At this point there really is nothing further that can be accomplished by continued hospitalization. This was discussed with the patient at length. It was explained to the patient that if he is unable to increase his oral intake that hospice would
be appropriate. Medically cleared for d/c. Case management aware.
--- NOTE | 2024-12-10 10:25 | W.PN.HOSP.TC ---
Addendum entered and electronically signed by Jaymie Schrader DO, Resident 12/18/24 11:15:
severe malnutrition
Original Note:
Today's Communication/Plan
-
Palliative consult pending
Pending SNF placement
Assessment / Plan
Assessment / Plan
#Dysphagia
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
Esophageal stenting completed on 12/[address] scan showed masslike thickening of distal esophagus with evidence of diffuse intra-abdominal disease and peritoneal carcinomatosis
CT AP on 12/07 shows R lobe hepatic lesion not appreciated on last study
CT chest/neck shows distal esophageal thickening, abdominal ascites
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
Continue liquid morphine every 4 hours as needed�10 mg
Xanax increased to 0.5 crushed
Continue IVF and pantoprazole. Cap after current bag Maalox added for additional support
Oncology on board appreciate input. Will follow-up with patient in the next week in office.
surgery on board, appreciate input
IR consulted for therapeutic thoracentesis. 2900 cc removed, negative for any growth. Repeat paracentesis drained 5000 cc.
IR consulted on 12/09 for repeat paracentesis. Paracentesis drain 2.6 L of dark yellow ascitic fluid. Analysis pending
Oncology recommending outpatient PET scan
Palliative care consulted, appreciate input
#Abdominal distention
Patient had 2.9 L of fluid removed via paracentesis on 12/02
Repeat paracentesis on 12/07 had 5L of fluid drained.
Repeat paracentesis 12/09.
#Protein calorie malnutrition
Likely secondary to dysphagia from esophageal cancer
Continue Ensure 3 times a day
#chest wall mass
large, fungating mass in center of chest
6+ months of growth, now weeping fluids
surgery following
oncology on board
#hyponatremia
likely secondary to poor PO intake
continue IVF
#leukocytosis
likely reactive. no evidence of acute infection
observe
DVT Proph- Lovenox + SCD
Full code
Anticipated Discharge: Within 24 hours
Subjective/Interval History
-
Date of Service: December 10, 2024
Patient reports feeling better than yesterday today. He states he had a little bit to eat last night. He continues to have GERD, but states that last time he was given a dose of Maalox it helped him. He reports no nausea, vomiting, chest pain,
abdominal pain, shortness of breath or numbness or tingling. Palliative to see him today.
Objective Data
-
Vital Signs:
Vital Signs
Temp Pulse Resp BP Pulse Ox
98.1 F 90 16 118/64 99
12/10/24 09:00 12/10/24 09:00 12/10/24 09:00 12/10/24 09:00 12/10/24 09:24
I&O
12/09/24 12/10/24 12/11/24
06:59 06:59 06:59
Intake Total 680 / 680 1200 / 1200
Output Total 650 / 650
Balance 30 / 30 1200 / 1200
Review of Systems
-
History Source: Patient
Constitutional: Reports Weight Loss and No Appetite
EENT: Reports No Symptoms Reported
Respiratory: Reports No Symptoms
Cardiac: Reports No Symptoms
Abdomen/GI: Reports GERD
Genitourinary: Reports No Symptoms
Skin: Reports No Symptoms
Neuro: Reports No Symptoms
Endocrine: Reports No Symptoms
Physical Exam
-
General: Appears Chronically Ill and Cachectic
HEENT: Normocephalic and Atraumatic; Negative Moist Mucous Membranes
Respiratory: Clear to Auscultation
Cardiac: S1/S2
GI: Soft, Nontender, Normal Bowel Sounds and Distended (Mild)
Musculoskeletal: No Cyanosis, No Edema and Clubbing
Neuro: AO x 3
Psych: Calm
Data Reviewed
-
CT Scan: Report Reviewed by me
Labs: Labs Reviewed by me and Discussed with Physician
Old Records: Reviewed
[2024-12-10] MEDS: MAALOX 30 ML PO (10:31)
[2024-12-10] MEDS: D5/0.45%NACL IV (10:31)
--- NOTE | 2024-12-10 11:50 | W.PN.ONC ---
Today's Communication / Plan
-
Await clarification of advanced disease by cytology
Performance status not significantly improved currently not acceptable for aggressive approach may be palliated with MECHANICAL ENGINEER
Follow-up in the office
Impression
Impression
Distal esophageal mass adenocarcinoma
RML 7mm pulmonary nodule vs bifurcation of vessels
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
s/p para 2900cc drained 12/02, 5L drained 12/07/24. SAAG 0.9�likely secondary to omental caking
Dysphagia and weight loss
Plan
Plan
Reviewed esoph bx c/w esophageal adenocarcinoma, pMMR, Her2 neg, PDL1 pending
Cytology from ascites still pending
Clinical picture c/w stage IV disease
PO diet as able, encouraged increased calories and protein
paracenteses prn
Will arrange outpatient onc f/u within the next week, to discuss treatment options, including chemo, possibly immunotherapy, palliative radiation. Our fabric inspector will reach out to him.
Okay for d/c from an onc standpoint if able to tolerate po diet
Subjective/Objective
Subjective/Objective
Patient frustrated. Still with significant difficulty ingesting. Feels fatigued.
Vital Signs:
Vital Signs
Temp Pulse Resp BP Pulse Ox
98.1 F 90 16 118/64 99
12/10/24 09:00 12/10/24 09:00 12/10/24 09:00 12/10/24 09:00 12/10/24 09:24
Unchanged physical exam
Lab Results:
Laboratory Data
WBC 18.2 10^3/uL (4.8-10.8) H 12/08/24 10:58
Hgb 12.6 g/dL (13.0-18.0) L 12/08/24 10:58
Plt Count 346 10^3/uL (130-400) 12/08/24 10:58
PT 15.2 Sec (11.4-14.6) H 12/02/24 04:23
INR 1.16 12/02/24 04:23
APTT 34.6 Sec (23.4-35.0) 12/02/24 04:23
eGFR > 60.00 12/08/24 10:58
--- NOTE | 2024-12-10 12:13 | HOSPNOTE ---
Addendum entered by Valeria Lowry RN 12/10/24 13:37:
Palliative care spoke with patient and the patient is choosing to go to rehab and then follow up with oncology as an outpatient.
Original Note:
Will await palliative assessment and if patient wishes for hospice will discuss code status and hospice with patient. More information to follow
--- NOTE | 2024-12-10 12:31 | W.CON.PAL ---
Consultation
-
Date/Time Consultation Requested: 12/09/24
Date/Time Consultation Performed: 12/10/24
Requesting Provider: Adina
Performing Provider: Daniella Caldwell
Reason for Consult: Goals of Care Discussion
Primary Diagnosis: metastatic esophageal cancer
Consult Requested By: Patient's Physician
Reason for Admission
Illness Course/HPI
74 year old M with no known PMH admitted with progressive dysphagia. Upon admission CT with concern for esophageal mass with near complete obstruction c/f malignancy. Also with liver lesions. omental caking with ascites. Underwent biopsy of
esophageal mass with revealed mod differentiated adeno of the esophagus. Also underwent esophageal stenting with improvement in dysphagia. S/p para x3 for recurrent ascites.
Seen by oncology who recommend outpatient follow up to discuss treatment options. Will need SNF upon discharge.
Pain & Symptom Assessment
C[place]all Symptom Scale 0=none, 10=worst
Pain: 0
Tired: 3
Nausea: 0
Appetite: 3
Objective Data
-
Objective Data:
Vital Signs
Temp Pulse Resp BP Pulse Ox
98.1 F 90 16 118/64 99
12/10/24 09:00 12/10/24 09:00 12/10/24 09:00 12/10/24 09:00 12/10/24 09:24
Laboratory Results
12/08/24 10:58
12/08/24 10:58
PT 15.2 Sec (11.4-14.6) H 12/02/24 04:23
INR 1.16 12/02/24 04:23
APTT 34.6 Sec (23.4-35.0) 12/02/24 04:23
Total Protein 5.3 g/dl (6.3-8.2) L 12/04/24 08:03
Albumin 2.3 g/dl (3.5-5.0) L 12/04/24 08:03
Palliative Performance Scale
Palliative Performance Scale:
PPS Level Ambulation Activity & Evidence of Disease Self Care Intake Conscious Level
100% Full Normal Activity & Work; Full Intake Full
No Evidence of Disease
90% Full Normal Activity & Work; Full Normal Full
Some Evidence of Disease
80% Full Normal Activity with Effort Full Normal or Full
Some Evidence of Disease Reduced
70% Reduced Unable Normal Job/Work Full Normal or Full
Significant Disease Reduced
60% Reduced Unable Hobby/Housework Occasional Normal or Full or Confusion
Significant Disease Assistance Reduced
50% Mainly Sit/Lie Unable to do Any Work Considerable Normal or Full or Confusion
Extensive Disease Assistance Req'd Reduced
40% Mainly in Bed Unable to do Most Activity Mainly Assistance Normal or Full or Drowsy;
Extensive Disease Reduced +/- Confusion
30% Totally Bed Unable to do Any Activity Total Care Normal or Full or Drowsy;
Bound Extensive Disease Reduced +/- Confusion
20% Totally Bed Bound Unable to do Any Activity Total Care Minimal to Full or Drowsy;
Extensive Disease Sips +/- Confusion
10% Totally Bed Bound Unable to do Any Activity Total Care Mouth Care Drowsy or Coma;
Extensive Disease Only +/- Confusion
0%
PPS Score Level:
Palliative Performance Score Response
Palliative Performance Score Response: 60%
Physical Exam
-
General: Appears Chronically Ill and Cachectic
HEENT: Normocephalic
Respiratory: Clear to Auscultation
Cardiac: Regular Rhythm
Peripheral Vascular: No Edema
GI: Soft and Distended
Skin: Warm
Neuro: AO x 3
Psych: Calm
Assessment / Plan
-
Assessment/Plan:
74 year old M with newly diagnosed metastatic esophageal cancer
- long discussion with patient at bedside. States he doesnt feel he knows anything about his cancer. We discussed his cancer is metastatic, which means stage 4. Explained cancer is not curable but may be treatable to slow down progression, help with
symptoms etc. Asked his prognosis if he didnt do treatment, explained likely months but that even with treatment, not a guarantee it would extend his life and may just make him more sick depending on the treatment and how he reacts to it. Suggested
that he go to his outpatient appt with onc to discuss potential options and get their opinion. States he would like to hear his options and knows that if its not an option, hospice would be next step. Discussed this in detail - would likely need a
SNF with hospice as he has poor social support. Has 5 siblings but closest one Tevin is in [place]. Other from [place] may come up next week to help him but cannot stay.
- would like to try rehab and get to onc appt. Based on that, will determine next steps re: treatment vs hospice.
Care Reviewed
Data Reviewed
Radiology procedure: Image Reviewed
Medical Tests: I reviewed
Reviewed with: Patient and Physician
[2024-12-10] MEDS: REGLAN 10 MG IV (15:12)
[2024-12-10 15:32] VITALS: BP 112/78
--- NOTE | 2024-12-10 16:57 | PTCARENOTE ---
Pt AAO x3, HOSKINS weakly. Flat affect at times. Able to position self in bed. VSS. On room air- pulse ox 97%, no SOB noted. Abd sl firm BS (+); pt tpol low reside diet; appetite good for breakfast, refused lunch; so far refusing dinner. Taking
small amts fluids; denies dysphagia; Maalox and IV Reglan given earlier in shift for nausea/GERD with fair effect. Voids small amts urine. Chest dsg D/I. Resting in bed at present, no c/o. Will continue to monitor.
[2024-12-10] MEDS: LOVENOX 40 MG SC (17:30)
[2024-12-10 23:12] VITALS: BP 107/74
[2024-12-11 06:00] VITALS: BMI 19.7
[2024-12-11 07:00] VITALS: BP 104/83
[2024-12-11 07:30] LABS: % Basophils 0.4 % (0-2); % Eosinophils 0.4 % (0-6); % Immature Granulocytes 0.5 % (0-0.5); % Lymphocytes 5.3 % (20.5-51.1); % Monocytes 6.1 % (1.7-9.3); % Neutrophils 87.3 % (42.2-75.2); Absolute Basophils 0.1 10^3/uL (0-0.2); Absolute Eosinophils 0.1 10^3/uL (0-0.7); Absolute Immature Granulocytes 0.1 10^3/uL (0-0.05); Absolute Monocytes 1.1 10^3/uL (0.1-0.6); Hematocrit 41.2 % (39.0-52.0); Hemoglobin 13.9 g/dL (13.0-18.0); Mean Corp Hgb Conc. 33.7 g/dL (33.0-37.0); Mean Corpuscular Hgb 27.6 pg (27.0-31.0); Mean Corpuscular Volume 81.7 fL (80.0-94.0); Mean Platelet Volume 8.9 fL (7.4-10.4); Nucleated Red Blood Cells % 0 % (-); Platelet Count 394 10^3/uL (130-400); Red Blood Cell Count 5.04 10^6/uL (4.70-6.10); White Blood Cell Count 18.3 10^3/uL (4.8-10.8)
[2024-12-11] MEDS: MAALOX 30 ML PO (07:43)
[2024-12-11] MEDS: REGLAN 10 MG IV (07:44)
[2024-12-11] MEDS: PROTONIX IV 40 MG IV ×2 (07:44→20:18)
[2024-12-11] MEDS: NSS (PRESERVATIVE FREE) 10 ML IV ×2 (07:44→20:18)
[2024-12-11] MEDS: MIRALAX 17 GRAMS PO (07:44)
[2024-12-11 07:56] LABS: ALT (SGPT) 14 U/L (0-50); AST (SGOT) 27 U/L (17-59); Albumin 2.4 g/dl (3.5-5.0); Alkaline Phosphatase 117 U/L (38-126); Blood Urea Nitrogen 36 mg/dl (9-20); Calcium 8.3 mg/dl (8.4-10.2); Carbon Dioxide 24 mmol/L (22-30); Chloride 100 mmol/L (98-107); Estimated Creatinine Clearance 63 ml/min; Glucose 105 mg/dl (70-99); Potassium 4.5 mmol/L (3.5-5.1); Sodium 130 mmol/L (135-145); Total Protein 5.6 g/dl (6.3-8.2); eGFR > 60.00
--- NOTE | 2024-12-11 08:10 | W.PN.HOSP.TC ---
Today's Communication/Plan
-
Pending SNF placement
Assessment / Plan
Assessment / Plan
#Dysphagia
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
Esophageal stenting completed on 12/[address] Ramirez
[address] scan showed masslike thickening of distal esophagus with evidence of diffuse intra-abdominal disease and peritoneal carcinomatosis
CT AP on 12/07 shows R lobe hepatic lesion not appreciated on last study
CT chest/neck shows distal esophageal thickening, abdominal ascites
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
Continue liquid morphine every 4 hours as needed�10 mg
Xanax increased to 0.5 crushed
Continue PPI. Maalox added for additional support
Oncology on board appreciate input. Will follow-up with patient in the next week in office.
surgery on board, appreciate input
IR consulted for therapeutic thoracentesis. 2900 cc removed, negative for any growth. Repeat paracentesis drained 5000 cc.
IR consulted on 12/09 for repeat paracentesis. Paracentesis drain 2.6 L of dark yellow ascitic fluid. Analysis pending
Oncology recommending outpatient PET scan
Palliative care consulted, will follow-up with patient after discharge once he gets more information regarding treatment from oncology
#Abdominal distention
Patient had 2.9 L of fluid removed via paracentesis on 12/02
Repeat paracentesis on 12/07 had 5L of fluid drained.
Repeat paracentesis 12/09.
#Protein calorie malnutrition
Likely secondary to dysphagia from esophageal cancer
Continue Ensure 3 times a day
#chest wall mass
large, fungating mass in center of chest
6+ months of growth, now weeping fluids
surgery following
oncology on board
#hyponatremia
likely secondary to poor PO intake
continue IVF
#leukocytosis
likely reactive. no evidence of acute infection
observe
DVT Proph- Lovenox + SCD
Full code
Patient pending SNF placement. Will follow-up with oncology outpatient.
Anticipated Discharge: Within 24 hours
Subjective/Interval History
-
Date of Service: December 11, 2024
Patient reports improved appetite overnight. He states he will attempt to eat more today. He said that the MiraLAX tastes bad and he is not able to tolerate it well. He reports no vomiting, chest pain or shortness of breath. Continues to have GERD
and nausea.
Objective Data
-
Labs:
Laboratory Results
12/11/24
07:02
WBC 18.3 H
Hgb 13.9
Hct 41.2
Plt Count 394
Sodium 130 L
Potassium 4.5
Chloride 100
Carbon Dioxide 24
BUN 36 H
Creatinine 0.9
Glucose 105 H
Calcium 8.3 L
Total Bilirubin 1.0
AST 27
ALT 14
Alkaline Phosphatase 117
Vital Signs:
Vital Signs
Temp Pulse Resp BP Pulse Ox
97.9 F 94 18 104/83 97
12/11/24 07:00 12/11/24 07:00 12/11/24 07:00 12/11/24 07:00 12/11/24 07:00
I&O
12/10/24 12/11/24 12/12/24
06:59 06:59 06:59
Intake Total 1200 / 1200 1100 / 1100
Balance 1200 / 1200 1100 / 1100
Review of Systems
-
History Source: Patient
Constitutional: Reports Weight Loss and Weakness
EENT: Reports No Symptoms Reported
Respiratory: Reports No Symptoms
Cardiac: Reports No Symptoms
Abdomen/GI: Reports Nausea, Constipated and GERD
Musculoskeletal: Reports No Symptoms
Skin: Reports No Symptoms
Neuro: Reports Weakness
Physical Exam
-
General: Appears Chronically Ill and Cachectic
HEENT: Normocephalic and Atraumatic; Negative Moist Mucous Membranes
Respiratory: Clear to Auscultation
Cardiac: Regular Rhythm and S1/S2
GI: Soft, Nontender and Distended
Musculoskeletal: No Cyanosis, No Edema and Clubbing
Skin: Warm and Dry
Neuro: AO x 3
Psych: Calm
Data Reviewed
-
Old Records: Reviewed
--- NOTE | 2024-12-11 08:39 | W.PN.UPDATE ---
Update Note
Progress Note Update
I saw and evaluated the patient. I reviewed the resident�s note and agree with findings and plan as documented in the resident�s note.
Pt reports some oral intake yesterday. Reports persistence lack of appetite.
Gen: NAD, AAOx3, appears chronically ill, cachectic, malnourished.
Eyes: EOMI, PERRLA, no scleral icterus.
Neck: supple.
CV: Remains RRR, +S1/S2, no m/r/g.
Resp: CTAB anteriorly, no rales, wheezes, or rhonchi.
Abd: +BS, soft, mild distention with ascites, mild tenderness to palpation
Skin: No rashes.
Neuro: CN 2-12 intact, non-focal.
Psych: Normal mood and affect.
CT A/P 12/01/24: Possible distal esophageal mural mass. Upper GI examination/direct visualization recommended. 3 cm hypodense hepatic lesion. This may be benign or malignant. Omental caking suggesting metastatic disease. Large amount of abdominal
pelvic ascites. Moderate fecal material throughout the colon. Moderate hiatal hernia
CT chest w/IV 12/02/24: No acute disease of the chest. Distal esophageal wall thickening concerning for esophageal carcinoma. Moderate abdominal ascites and omental caking suggesting metastatic disease. Right middle lobe solid noncalcified 7 mm
pulmonary nodule versus bifurcation of vessels. This could further be evaluated by PET imaging or comparison to outside studies if any exist.
CT Neck 12/02/24: No evidence of acute nor metastatic disease of the neck. Mild nonacute right maxillary sinusitis.
Esophagram 12/03/24: Partially obstructing irregular mass of the distal thoracic esophagus, suspicious for malignancy.
CT A/P 12/07/24: Low-attenuation right lobe hepatic lesion not as well appreciated as on recent prior study. Massive ascites, likely increased in volume in the abdomen in comparison to recent prior study. Findings again seen suggesting some possible
omental caking/carcinomatosis. Pathology results of recent prior paracentesis pending. Hiatal hernia again suspected as well as possible mass at the gastroesophageal junction. Malignancy is the diagnosis of exclusion. Recent biopsy results pending.
Small left and tiny right pleural effusions.
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
-s/p EGD, able to obtain multiple biopsies from different sites however report is concerning for necrotic mass/false lumen unable to safely stent at the time of the EGD
-Pathology from EGD showed esophageal adenocarcinoma, moderately differentiated. No lymphovascular invasion identified.
-s/p paracentesis 12/02/24 for 2900cc
-s/p paracentesis 12/07/24 for 5000cc
-s/p esophageal stent placement 12/07/34
-s/p paracentesis 12/09/24 for 2600cc
-advanced to LR/stent diet
-case discussed with Drs. Cartagena and Sveta and both have cleared the pt for discharge.
-check abd U/S to assess if enough ascites for paracentesis
Other problems:
Hyponatremia, initially resolved with IVFs, now 130, trend outpt
Leukocytosis, likely reactive
FULL code
Lovenox + SCDs
At this point there really is nothing further that can be accomplished by continued hospitalization. This was discussed with the patient at length. It was explained to the patient that if he is unable to increase his oral intake that hospice would
be appropriate. Remains medically cleared for d/c since 12/08/24. Case management aware.
--- NOTE | 2024-12-11 10:27 | CM ---
Addendum entered by Carson White 12/11/24 15:12:
Per [facility], able to accept pt tomorrow.
Updated pt and brother at bedside. Pt's brother will transport
Updated physician resident
IMM reviewed, copy given to pt, copy on chart
[facility]
Report: [phone]

Plan: [facility] tomorrow. Pt's brother will transport to SNF
Original Note:
CM followed up w/ pt bedside regarding SNF. [facility] do not have any available beds today. Pt is aware his d/c has been placed.
CM reviewed [facility], [facility] and [facility] as accepting facilities. Pt agreeable to [facility].
Discussed w/ pt transport, pt does not qualify for ambulance, WC van available for private cost. Pt stated WC van would be less expensive than an ambulance. Pt would like to talk to his brother as he is coming today and will confirm w/ CM if he'll
do a van or his brother will transport him.
CM left message w/ [facility] to confirm bed today.
Plan: [facility] if bed available today.
[2024-12-11 15:00] VITALS: BP 115/80
[2024-12-11 15:57] VITALS: BP 109/80; BP 115/80; PULSE 100; O2SAT 97
[2024-12-11] MEDS: LOVENOX SC (17:54)
[2024-12-11 23:32] VITALS: BP 117/84
[2024-12-12 07:50] VITALS: BP 126/85
[2024-12-12] MEDS: DULCOLAX 10 MG RECTAL (08:16)
[2024-12-12] MEDS: PROTONIX IV 40 MG IV (08:16)
[2024-12-12] MEDS: MIRALAX 17 GRAMS PO (08:16)
[2024-12-12] MEDS: NSS (PRESERVATIVE FREE) 10 ML IV (08:16)
[2024-12-12] MEDS: REGLAN 10 MG IV (08:25)
--- NOTE | 2024-12-12 08:28 | W.PN.HOSP.TC ---
Today's Communication/Plan
-
Pending transportation to SNF
Assessment / Plan
Assessment / Plan
#Dysphagia
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
Esophageal stenting completed on 12/[address] Ramirez
[address] scan showed masslike thickening of distal esophagus with evidence of diffuse intra-abdominal disease and peritoneal carcinomatosis
CT AP on 12/07 shows R lobe hepatic lesion not appreciated on last study
CT chest/neck shows distal esophageal thickening, abdominal ascites
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
Continue liquid morphine every 4 hours as needed�10 mg
Xanax increased to 0.5 crushed
Continue PPI. Maalox added for additional support
Oncology on board appreciate input. Will follow-up with patient in the next week in office.
surgery on board, appreciate input
IR consulted for therapeutic thoracentesis. 2900 cc removed, negative for any growth. Repeat paracentesis drained 5000 cc.
IR consulted on 12/09 for repeat paracentesis. Paracentesis drain 2.6 L of dark yellow ascitic fluid. Analysis pending
Oncology recommending outpatient PET scan
Palliative care consulted, will follow-up with patient after discharge once he gets more information regarding treatment from oncology
#Abdominal distention
Patient had 2.9 L of fluid removed via paracentesis on 12/02
Repeat paracentesis on 12/07 had 5L of fluid drained.
Repeat paracentesis 12/09.
#Protein calorie malnutrition
Likely secondary to dysphagia from esophageal cancer
Continue Ensure 3 times a day
#chest wall mass
large, fungating mass in center of chest
6+ months of growth, now weeping fluids
surgery following
oncology on board
#hyponatremia
likely secondary to poor PO intake
continue IVF
#leukocytosis
likely reactive. no evidence of acute infection
observe
DVT Proph- Lovenox + SCD
Full code
Patient pending SNF placement. Will follow-up with oncology outpatient.
Anticipated Discharge: Within 24 hours
Subjective/Interval History
-
Date of Service: December 12, 2024
Patient reports no acute events overnight. He states he does not know if he will be ready to leave today. I explained that we are waiting for transportation to SNF. Patient left during conversation to use the bathroom, unable to do physical exam.
Objective Data
-
Vital Signs:
Vital Signs
Temp Pulse Resp BP Pulse Ox
98.5 F 92 18 117/84 98
12/11/24 23:32 12/11/24 23:32 12/11/24 23:32 12/11/24 23:32 12/11/24 23:32
I&O
12/11/24 12/12/24 12/13/24
06:59 06:59 06:59
Intake Total 1100 / 1100
Balance 1100 / 1100
Review of Systems
-
History Source: Patient
Constitutional: Reports Weight Loss, No Appetite and Fatigue
EENT: Reports No Symptoms Reported
Respiratory: Reports No Symptoms
Abdomen/GI: Reports Nausea and GERD
Musculoskeletal: Reports No Symptoms
Neuro: Reports No Symptoms
Data Reviewed
-
Old Records: Reviewed
--- NOTE | 2024-12-12 09:06 | W.PN.UPDATE ---
Addendum entered and electronically signed by Rajinder Holden MD 12/20/24 17:57:
Severe protein calorie malnutrition
Addendum entered and electronically signed by Rajinder Holden MD 12/13/24 08:00:
Total time spent on d/c on 12/12/24= 38 min. This included today's physical exam, progress note, review of laboratory and diagnostic data, preparation of discharge documents and prescriptions, and discussions about the pt's hospital course and
discharge plan with the patient and other registered medical assistant involved in the patient's care.
Original Note:
Update Note
Progress Note Update
I saw and evaluated the patient. I reviewed the resident�s note and agree with findings and plan as documented in the resident�s note.
Pt reports some oral intake yesterday.
Gen: NAD, AAOx3, appears chronically ill, cachectic, malnourished.
Eyes: EOMI, PERRLA, no scleral icterus.
Neck: supple.
CV: Tachycardic, regular rhythm, +S1/S2, no m/r/g.
Resp: Remains CTAB anteriorly, no rales, wheezes, or rhonchi.
Abd: +BS, soft, mild-mod distention with ascites, mild tenderness to palpation
Skin: No rashes.
Neuro: CN 2-12 intact, non-focal.
Psych: Normal mood and affect.
CT A/P 12/01/24: Possible distal esophageal mural mass. Upper GI examination/direct visualization recommended. 3 cm hypodense hepatic lesion. This may be benign or malignant. Omental caking suggesting metastatic disease. Large amount of abdominal
pelvic ascites. Moderate fecal material throughout the colon. Moderate hiatal hernia
CT chest w/IV 12/02/24: No acute disease of the chest. Distal esophageal wall thickening concerning for esophageal carcinoma. Moderate abdominal ascites and omental caking suggesting metastatic disease. Right middle lobe solid noncalcified 7 mm
pulmonary nodule versus bifurcation of vessels. This could further be evaluated by PET imaging or comparison to outside studies if any exist.
CT Neck 12/02/24: No evidence of acute nor metastatic disease of the neck. Mild nonacute right maxillary sinusitis.
Esophagram 12/03/24: Partially obstructing irregular mass of the distal thoracic esophagus, suspicious for malignancy.
CT A/P 12/07/24: Low-attenuation right lobe hepatic lesion not as well appreciated as on recent prior study. Massive ascites, likely increased in volume in the abdomen in comparison to recent prior study. Findings again seen suggesting some possible
omental caking/carcinomatosis. Pathology results of recent prior paracentesis pending. Hiatal hernia again suspected as well as possible mass at the gastroesophageal junction. Malignancy is the diagnosis of exclusion. Recent biopsy results pending.
Small left and tiny right pleural effusions.
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
-s/p EGD, able to obtain multiple biopsies from different sites however report is concerning for necrotic mass/false lumen unable to safely stent at the time of the EGD
-Pathology from EGD showed esophageal adenocarcinoma, moderately differentiated. No lymphovascular invasion identified.
-s/p paracentesis 12/02/24 for 2900cc
-s/p paracentesis 12/07/24 for 5000cc
-s/p esophageal stent placement 12/07/34
-s/p paracentesis 12/09/24 for 2600cc
-advanced to LR/stent diet
-was seen by GI/ONC while hospitalized
Other problems:
Hyponatremia, initially resolved with IVFs, now 130, trend outpt
Leukocytosis, likely reactive
FULL code
Lovenox + SCDs
At this point there really is nothing further that can be accomplished by continued hospitalization. This was discussed with the patient at length on multiple occasion. It was explained to the patient that if he is unable to increase his oral
intake that hospice would be appropriate. Remains medically cleared for d/c since 12/08/24. Case management aware. Risk of readmission within 30 days is 100%.
Total time spent on d/c = 34 min. This included today's physical exam, progress note, review of laboratory and diagnostic data, preparation of discharge documents and prescriptions, and discussions about the pt's hospital course and discharge plan
with the patient and other registered medical assistant involved in the patient's care.
[2024-12-12 14:45] VITALS: BP 112/80
--- NOTE | 2024-12-12 15:39 | CM ---
Patient with Dx dysphagia, suspected metastatic esophageal cancer, chest wall mass, malnutrition who is s/p paracentesis. Room air. Seen by Palliative Care. PT recommends skilled rehab. OT recommends SNF vs HH+assist 27/05.
Per Dr Holden; next paracentesis may be done in 3-4 days.
Spoke with [facility], [facility]; they are able to accept the patient today at 3pm (bed not ready until then). [facility] is aware patient may need paracentesis again in 3-4 days. The phone for report [phone], fax [phone].
Spoke with patient's brother Tevin; he agrees with d/c today to [facility]. Tevin inquired if SNF will be able to accept his brother if paracentesis will be needed - informed him that SNF is aware of possible need and accepted. He would like to
transport the patient by his vehicle. He was informed that he can arrive at SNF with the patient at 3pm.
IMM completed 12/11 per prior CM.
Plan [facility] SN[facility] today by car with brother.
--- NOTE | 2024-12-13 12:48 | W.DCSUMMARY ---
Discharge Summary
Discharge Data
Date of Admission: 12/02/24
Date of Discharge: 12/13/24
Total time spent discharging patient (in min): 55
-
Pending Results: No
Hospital Course
Discharging Physician : Rajinder Holden MD
Disposition : SNF
Principal Discharge diagnosis : Esophageal adenocarcinoma
Hospital Course : 74-year-old male with no known past medical history who presented to [facility] complaining of progressive difficulty swallowing over the last 2 months. He states that over the last 2 weeks prior to admission he has been
unable to swallow liquids or solids, at times vomiting the food he is ingested. He complained of significant epigastric and abdominal pain as well and significant weight loss over the last 2 months�20+ pounds. He notes a large fungating mass on
his anterior chest that has been present for a few months that is now oozing pus and blood, he has not seen wound care for this and manages it on his own. CT scan showed esophageal narrowing secondary to mass, hepatic mass and peritoneal/abdominal
ascites. Patient underwent 3 paracentesis during stay for significant fluid burden. Patient underwent EGD with biopsy on 12/03 which came back positive for adenocarcinoma of the esophagus. Endoscopy showed necrotic tissue in the esophagus. A few
days later, patient was stented but began to experience significant reflux-like symptoms, poorly controlled with Protonix and Maalox. Patient had poor appetite throughout stay. Patient was evaluated by palliative care during stay and stated that
he wanted to follow-up with oncology prior to enrolling in either palliative or hospice care so he can better understand his options. He expressed multiple times that he would like to go to rehab and become stronger so that he can get
systemic/radiation therapy. Goal for patient outpatient would be to work on increasing oral intake for nutritional benefit and likely to schedule appointment with IR for repeat paracentesis. Oncology will follow-up with patient outpatient.
Important imaging findings :
Abdomen pelvis CT 11/23:
IMPRESSION: Possible distal esophageal mural mass. Upper GI examination/direct visualization recommended
3 cm hypodense hepatic lesion. This may be benign or malignant. MRI examination recommended.
Omental caking suggesting metastatic disease.
Large amount of abdominal pelvic ascites.
Moderate fecal material throughout the colon.
Moderate hiatal hernia
Paracentesis 12/02:
FINDINGS: 2900 cc of clear yellow ascitic fluid was evacuated. Samples sent for analysis as requested.
IMPRESSION: Successful ultrasound guided diagnostic and therapeutic paracentesis.
Chest CT 12/02:
IMPRESSION:
No acute disease of the chest.
Distal esophageal wall thickening concerning for esophageal carcinoma.
Moderate abdominal ascites and omental caking suggesting metastatic disease.
Right middle lobe solid noncalcified 7 mm pulmonary nodule versus bifurcation of vessels. This could further be evaluated by PET imaging or comparison to outside studies if any exist.
Neck CT 12/02:
IMPRESSION: No evidence of acute nor metastatic disease of the neck.
Mild nonacute right maxillary sinusitis.
Less than grade 1 anterolisthesis of C7 on T1.
Esophagus x-ray 12/03:
IMPRESSION:
Partially obstructing irregular mass of the distal thoracic esophagus, suspicious for malignancy.
ERCP 12/07:
FINDINGS: Films show placement of a stent in the region of the distal third of esophagus than projected through the GE junction. Two paperclips are projected in this region as well.
IMPRESSION: Fluoroscopic guidance provided for above procedure.
Paracentesis 12/07:
FINDINGS: 5000 cc of clear yellow ascitic fluid was evacuated. Samples sent for analysis as requested.
IMPRESSION: Successful ultrasound guided diagnostic and therapeutic paracentesis.
Abdomen pelvis CT 12/07:
IMPRESSION:
Low-attenuation right lobe hepatic lesion not as well appreciated as on recent prior study.
Massive ascites, likely increased in volume in the abdomen in comparison to recent prior study. Findings again seen suggesting some possible omental caking/carcinomatosis. Pathology results of recent prior paracentesis pending.
Hiatal hernia again suspected as well as possible mass at the gastroesophageal junction. Malignancy is the diagnosis of exclusion. Recent biopsy results pending.
Small left and tiny right pleural effusions.
Paracentesis 12/09:
IMPRESSION: Successful ultrasound guided diagnostic and therapeutic paracentesis.
Procedure findings :
Endoscopy 12/07:
Impression: - Partially obstructing, malignant esophageal tumor
was found in the lower third of the esophagus.
Prosthesis placed. Endoscopic suturing performed.
- No gross lesions in the entire stomach.
- Normal duodenal bulb, first portion of the duodenum
and second portion of the duodenum.
- No specimens collected.
Recommendation: - Return patient to [facility] for ongoing care.
- Clear liquid diet today.
- Advance diet as tolerated as per the enteral stent
dietary guide resource (included in the patient's
chart).
- Follow up with an oncologist.
Discharge Plan
-
Patient Disposition: [facility]/SNF
Discharge Diagnosis/Procedures: Dysphagia due to esophageal adenocarcinoma, ascites due to omental caking
Condition: Fair
Diet: Other diet
Additional Diets: Low residue/stent diet, fluid restrict to 1200cc/day
Activity: With assistance
Driving Restrictions: No driving
Bathing Restrictions: None
Blood Work: cbc and cmp in 2 days, script from PCP
Activity Restrictions/Additional Instructions:
Wound Care Instructions
Mid upper chest: clean with soap and water, adaptic and dry gauze dressing, secure with paper tape. Change daily and prn drainage.
Follow up with oncologist.
Referrals:
Blu Pantoja DO [Active] - in less than 1 week (esophageal cancer)
NONE,* [Family Provider] - in less than 1 week
Mark Toribio DO [Active] - in two to four weeks (esophageal stent)
Prescriptions:
New
alprazolam 0.25 mg Tablet,Disintegrating
0.5 mg PO [id number] PRN (Reason: nausea/anxiety/pain) Qty: 4 0RF
polyethylene glycol 3350 17 gram Powder In Packet
17 g PO DAILY Qty: 0 0RF
morphine 10 mg/5 mL Solution
10 mg PO Q4HPRN PRN (Reason: pain) Qty: 60 0RF
pantoprazole [Protonix] 40 mg tablet,delayed release (DR/EC)
40 mg PO BID Qty: 1 0RF
ondansetron 4 mg tablet,disintegrating
4 mg PO Q8H 2 Days Qty: 6 0RF
Discharge Orders:
Discharge Patient (As Directed); Ordered 12/08/24
Ordered By: Rajinder Holden
Discharge Date and Time
Discharge Date/Time: 12/12/24 15:12
Print Language: CHINESE
--- NOTE | 2024-12-15 08:24 | PN.CDI ---
CDI
- -
CDI:
Physician Documentation Request
Admit Date: 12/02/24 02:45
Dear Doctor Raciel,
12/11 Skull Chopper Assessment: 'Pt reports no appetite, pt had vietnamese toast at bedside, bites consumed, pt reports too dry...Pt consuming < 50% of meals.'
12/12 Hospitalist PN: 'Protein calorie malnutrition, Likely secondary to dysphagia from esophageal cancer, Continue Ensure 3 times a day'
Based on the above information and your assessment, which of the following most accurately represents the patient's nutritional status?
Mild malnutrition
Moderate malnutrition
Severe malnutrition
Other (please specify)
[place] Criteria ([facility] Hospitalist 2017)
2 or more criteria must be present for either
non severe or severe malnutrition
Note that the criteria differs related to the
presence of an acute or chronic illness
Acute Illness Chronic Illness
Energy Intake Non Severe: <75% for >7 days Non Severe: <75% for >1 month
Severe: <50% for >5 days Severe: <75% for >1 month
Weight Loss Non Severe: 1-2% over 1 week Non Severe: 5% over 1 month
5% over 1 month 7.5% over 3 months
7.5% over 3 months 10% over 6 months
1 year N/A 20% over 1 year
Severe: >2% over 1 week Severe: >5% over 1 month
>5% over 1 month >7.5% over 3 months
>7.5% over 3 months >10% over 6 months
1 year N/A >20% over 1 year
Body Fat Non Severe: Mild Decrease Non Severe: Mild Loss
Severe: Moderate Decrease Severe: Severe Loss
Muscle Mass Non Severe: Mild Decrease Non Severe: Mild Loss
Severe: Moderate Decrease Severe: Severe Loss
Fluid Accumulation Non Severe: Mild Accumulation Non Severe: Mild Accumulation
Severe: Moderate to severe Severe: Moderate to severe
accumulation accumulation
Reduced Glass Technician Strength Non Severe: N/A Non Severe: N/A
Severe: Measurably reduced Severe: Measurably reduced
Additional criteria that can be used to Determine if Mild or Moderate Malnutrition (Merck Manual 2018)
Mild Moderate Severe
Albumin gm/dl <3.0 gm/dl <2.5 gm/dl <2.0 gm/dl
Pre Albumin mg/dl <15 gm/dl <10 mg/dl <5.0 mg/dl
BMI <18.5 <17 <16
Use of terms such as suspected, likely, concern for, or probable (associated with a specific diagnosis that is being evaluated, monitored, or treated as if it exists) are acceptable and can be coded in the inpatient setting, when documented at the
time of discharge.
Thank you,
Sheri Villaseñor RN, BSN
CDI Specialist
Available via [employer] text
Please use your independent medical judgment in providing your response.
== END 2024-12-12 15:12 | DRG 374 ==
LOC: 4 EAST ACU 02:45
PROVIDERS: Emergency Medicine; Hospitalist; Internal Medicine Gastroenterology; Radiology Vascular & Interventional Radiology; ADMITTING PHYSICIAN Hospitalist; ATTENDING PHYSICIAN Internal Medicine; CONSULT PHYSICIAN Internal Medicine Hospice and Palliative Medicine; CONSULT PHYSICIAN Student in an Organized Health Care Education/Training Program; EMERGENCY PHYSICIAN Student in an Organized Health Care Education/Training Program; OTHER PHYSICIAN Internal Medicine Hematology & Oncology; OTHER PHYSICIAN Surgery
PROC: 0W9G3ZX Drainage of Peritoneal Cavity, Percutaneous Approach, Diagnostic (ICD-10-PCS; 2024-12-02)
PROC: 0DB38ZX Excision of Lower Esophagus, Via Natural or Artificial Opening Endoscopic, Diagnostic (ICD-10-PCS; 2024-12-03)
PROC: 0D738DZ Dilation of Lower Esophagus with Intraluminal Device, Via Natural or Artificial Opening Endoscopic (ICD-10-PCS; 2024-12-07)
DX: C15.5 Malignant neoplasm of lower third of esophagus (principal); E43 Unspecified severe protein-calorie malnutrition; C78.6 Secondary malignant neoplasm of retroperitoneum and peritoneum; E87.1 Hypo-osmolality and hyponatremia; R18.0 Malignant ascites; R64 Cachexia; E46 Unspecified protein-calorie malnutrition; Z68.1 Body mass index [BMI] 19.9 or less, adult; R22.2 Localized swelling, mass and lump, trunk; K22.2 Esophageal obstruction; D72.829 Elevated white blood cell count, unspecified; D75.839 Thrombocytosis, unspecified; K21.9 Gastro-esophageal reflux disease without esophagitis; K44.9 Diaphragmatic hernia without obstruction or gangrene; K76.89 Other specified diseases of liver; R13.14 Dysphagia, pharyngoesophageal phase; K22.89 Other specified disease of esophagus; K59.00 Constipation, unspecified; R91.1 Solitary pulmonary nodule; Z87.891 Personal history of nicotine dependence; Z80.7 Family history of other malignant neoplasms of lymphoid, hematopoietic and related tissues; Z80.3 Family history of malignant neoplasm of breast
CPT/HCPCS: 88305; 49083; 70491; 71260; 74177; 74220; 74330; 76000; 80048; 80053; 82042; 82150; 82248; 82378; 83615; 83690; 84157; 85025; 85027; 85610; 85730; 87015; 87070; 87205; 88112; 88341; 88342; 88360; 89051; 93005; 97116; 97163; 97167; 97530; C1874; Q9967

== ENCOUNTER 2024-12-16 05:30 | Inpatient (IN) | payer MEDICARE, SELFPAY ==
[2024-12-16] VITALS (26 sets, daily range): BP systolic 84–119; BP diastolic 61–90
[2024-12-16 02:09] LABS: % Basophils 0.1 % (0-2); % Immature Granulocytes 0.9 % (0-0.5); % Lymphocytes 3.1 % (20.5-51.1); % Monocytes 4.7 % (1.7-9.3); % Neutrophils 91.2 % (42.2-75.2); Absolute Immature Granulocytes 0.2 10^3/uL (0-0.05); Absolute Lymphocytes 0.8 10^3/uL (1.2-3.4); Absolute Monocytes 1.2 10^3/uL (0.1-0.6); Absolute Neutrophils 22.5 10^3/uL (1.4-6.5); Hematocrit 40.1 % (39.0-52.0); Hemoglobin 13.9 g/dL (13.0-18.0); Mean Corp Hgb Conc. 34.7 g/dL (33.0-37.0); Mean Corpuscular Hgb 27.7 pg (27.0-31.0); Mean Platelet Volume 8.8 fL (7.4-10.4); Nucleated Red Blood Cells % 0 % (-); Platelet Count 439 10^3/uL (130-400); Red Blood Cell Count 5.01 10^6/uL (4.70-6.10); Red Cell Dist. Width 14.4 % (11.5-14.5); White Blood Cell Count 24.7 10^3/uL (4.8-10.8)
[2024-12-16 02:16] LABS: INR 1.12; PT 14.7 Sec (11.4-14.6)
[2024-12-16 02:17] LABS: APTT 29.7 Sec (23.4-35.0)
[2024-12-16 02:19] LABS: ALT (SGPT) 19 U/L (0-50); AST (SGOT) 30 U/L (17-59); Albumin 3.1 g/dl (3.5-5.0); Alkaline Phosphatase 108 U/L (38-126); Blood Urea Nitrogen 68 mg/dl (9-20); Calcium 8.7 mg/dl (8.4-10.2); Carbon Dioxide 16 mmol/L (22-30); Chloride 93 mmol/L (98-107); Estimated Creatinine Clearance 39 ml/min; Glucose 126 mg/dl (70-99); Lipase 267 U/L (23-300); Potassium 5.8 mmol/L (3.5-5.1); Sodium 121 mmol/L (135-145); Total Bilirubin 1.3 mg/dl (0.2-1.3); Total Protein 6.3 g/dl (6.3-8.2); eGFR 49.16
--- NOTE | 2024-12-16 03:54 | ED.GENMED ---
History of Present Illness
General
Chief Complaint: Abdominal Symptoms
Source: patient
Exam Limitations: none
Time Seen by Provider: 12/16/24 03:29
Nursing documentation reviewed up to this point in time: agreed with
History of Present Illness
History of Present Illness:
Pleasant 74-year-old male presents to the emergency department with abdominal distention and vomiting up dark bloody vomitus. Patient has had a history of dysphagia and was recently admitted and discharged. Patient had a CAT scan at that time and
it showed esophageal narrowing secondary to a mass in the esophagus and hepatic mass. Patient has peritoneal and abdominal ascites. He had 3 paracenteses during his stay for fluid burden. 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
of the esophagus. Endoscopy showed necrotic tissue in the esophagus. Patient has been having GERD like symptoms and Protonix and Maalox were unable to control it. He has had poor appetite. Patient was evaluated by palliative care but stated he
wanted to exhaust all oncological options before enrolling in palliative care or hospice. After discharge on the , patient states that his symptoms did not improve. He has been having this dark vomitus as well as decreased oral intake.
Review of Systems
Review of Systems
Allergies reviewed?: Yes
Other source history: family
All Other Systems: ROS reviewed and negative except as documented in HPI and ROS
Constitutional: Reports weight loss, fatigue and sleep disturbance
ABD/GI: Reports abdominal pain and vomiting (Dark bloody vomitus)
Psychiatric: Reports anxiety
Phy Exam
General Physical Exam
General Presentation: moderate distress
General age: appears older than age
General Skin: warm and dry
General Habitus: cachetic, failure to thrive and frail
General Mental: alert and anxious
General Hydration: appears well hydrated
ENT Exam
ENT Exam: EOMI, pharynx normal, neck supple and normocephalic
Eye Exam
Eye Exam: PERRL, cornea clear and conjunctiva normal
Cardiovascular Exam
Cardiovascular Exam: other (Chest wall mass on the left chest)
Pulmonary Exam
Pulmonary Exam: lungs clear, no respiratory distress, no rales, no crackles, no rhonchi, no stridor, no wheezing and no cough
Gastrointestinal Exam
Gastrointestinal Exam: ascites
Neurological Exam
Neurological Exam: alert, oriented x3, no motor deficits and speech normal
Musculoskeletal Exam
Musculoskeletal Exam: full ROM and no edema
Skin Exam
Skin Exam: normal color, warm/dry, no rash and no petechia
Psychiatric Exam
Psychiatric Exam: normal mood/affect
Course
Orders/Labs/Results
Orders:
Orders
12/16/24 01:53
IV Insert/Care/Rem.- Treatment PRN
12/16/24 01:55
Type And Crossmatch [Type+Screen] Urgent
Complete Blood Count/With Diff Urgent
Comprehensive Metabolic Panel Urgent
Lipase Urgent
PT/INR [Prothrombin Time] Urgent
PTT Urgent
12/16/24 02:37
ABO2 Urgent
BBK Wristband Number:
Associate notified that ABO2 has been ordered: [id number]
Date: 12/16/24
Time: 02:24
Horse Trainer ID: [id number]
12/16/24 04:04
CR Obstruct Series W/pa Chest Urgent
Comment:
Reason For Exam: abd distention
12/16/24 04:30
3% Sodium Chloride 50 ml [Sodium Chloride 3%] 50 ml IV ONCE
12/16/24 04:42
HYDROmorphone [Dilaudid] 0.5 mg IV NOW STA
Ondansetron Injectable [Zofran] 4 mg IV NOW STA
12/16/24 05:00
3% Sodium Chloride 250 ml [Sodium Chloride 3%] 250 ml IV ONCE
Abnormal Lab Results
12/16/24
01:55
WBC 24.7 H 10^3/uL
(4.8-10.8)
Plt Count 439 H 10^3/uL
(130-400)
Abs Immat Gran (auto) 0.2 H 10^3/uL
(0-0.05)
Absolute Neuts (auto) 22.5 H 10^3/uL
(1.4-6.5)
Absolute Lymphs (auto) 0.8 L 10^3/uL
(1.2-3.4)
Absolute Monos (auto) 1.2 H 10^3/uL
(0.1-0.6)
Immature Gran % 0.9 H %
(0-0.5)
Neutrophils % 91.2 H %
(42.2-75.2)
Lymphocytes % 3.1 L %
(20.5-51.1)
PT 14.7 H Sec
(11.4-14.6)
Sodium 121 L mmol/L
(135-145)
Potassium 5.8 H mmol/L
(3.5-5.1)
Chloride 93 L mmol/L
(98-107)
Carbon Dioxide 16 L mmol/L
(22-30)
BUN 68 H mg/dl
(9-20)
Creatinine 1.5 H mg/dL
(0.7-1.3)
Glucose 126 H mg/dl
(70-99)
Albumin 3.1 L g/dl
(3.5-5.0)
12/16/24 01:55
12/16/24 01:55
Vital Signs
Initial and Last Documented VS:
Initial Vital Signs
Temp Pulse Resp BP Pulse Ox
98.2 F 98 16 113/83 100
12/16/24 01:46 12/16/24 01:46 12/16/24 01:46 12/16/24 01:46 12/16/24 01:46
Last Documented Vital Signs
Temp Pulse Resp BP Pulse Ox
98.2 F 95 16 119/87 96
12/16/24 01:46 12/16/24 04:00 12/16/24 02:00 12/16/24 04:00 12/16/24 04:00
*Critical Care Note
Total Time (30-74mins, 75-104mins- exclusive of procedures): 30 (Critical care statement: A total of 30minutes of critical care time was provided for this patient. This time is separate from time utilized to perform the aforementioned documented
procedures. Aggregate critical care time includes only time during which I was engaged in work directl)
ED Attending Note
-
Portions of this chart may have been created with voice recognition software.� Occasional wrong word or��sound alike� substitutions may have occurred due to the inherent limitations of voice recognition software.
Discharge Plan
Departure
Patient Disposition: Admit
Date of Disposition: 12/16/24
Time of Disposition: 04:06
Admit to: IVU
Presentation/result/management discussed w/ accepting MD/DO: Hospitalist
Condition: Fair
Discharge Problem:
Acute hyponatremia, Acute hyperkalemia, Ascites, Esophageal mass
Prescriptions:
No Action
polyethylene glycol 3350 17 gram Powder In Packet
17 g PO DAILY Qty: 0 0RF
pantoprazole [Protonix] 40 mg tablet,delayed release (DR/EC)
40 mg PO BID Qty: 1 0RF
acetaminophen [Tylenol] 325 mg Tablet
650 mg PO Q4H PRN (Reason: temp>100/pain)
alprazolam 0.5 mg Tablet
0.5 mg PO BID PRN (Reason: anxiety)
Rx Instructions:
end date 12/28/24
Fleet Enema 19-7 gram/118 mL Enema
118 ml IL DAILYPRN PRN (Reason: if dulcolax ineffective after 24hr)
morphine concentrate 10 mg/0.5 mL Syringe
10 mg PO Q4H PRN (Reason: pain)
Dulcolax (bisacodyl)
1 supp IL DAILYPRN PRN (Reason: if MOM ineffective after 24 hrs)
Milk Of Magnesia 7.75%
30 ml PO DAILYPRN PRN (Reason: no BM in 3 days)
ondansetron 4 mg tablet,disintegrating
4 mg PO TID
Referrals:
Christian Trejo I., DO [Family Provider] -
Interventions
Interventions:
*Risk Screen - Suicide Last Done: 12/16/24 01:46
*General Assessment Last Done: 12/16/24 01:46
*Neglect/Abuse Screening Last Done: 12/16/24 01:46
ED- Fall Risk Assessment Last Done: 12/16/24 02:10
*ED COVID-19 Vaccine History Last Done: 12/16/24 01:46
QK-Ivsiia-Xbygzexael Assessment Last Done: 12/16/24 02:10
Discharge Date and Time
Print Language: PUERTO RICAN
--- NOTE | 2024-12-16 04:23 | EDRN ---
Called pharmacy for 3% NaCl
--- NOTE | 2024-12-16 04:34 | EDRN ---
Dr Harris said to NOT give 3% sodium chloride over 5 minutes, he will change order. Called pharmacy to inform - no answer. Dr Harris informed pt requesting pain medication.
[2024-12-16] MEDS: ZOFRAN 4 MG IV ×2 (04:50→11:27)
[2024-12-16] MEDS: DILAUDID 0.5 MG IV (04:52)
--- NOTE | 2024-12-16 05:15 | HPS.HSE ---
Family Physician
-
Family Physician: Christian Trejo
Chief Complaint
-
Abd Pain, Bloating, N/V
History of Present Illness
Patient is a 74y M with PMH significant for recently diagnosed esophageal cancer with abdominal ascites who presents to ED complaining of abdominal pain, distention, inability to tolerate PO intake, N/V and general malaise. Patient was recently
admitted 12/02 - 12/13 for swallowing difficulty. During that stay he was diagnosed with esophageal cancer and likely omental caking / malignant ascites. He underwent multiple paracenteses during that stay. Patient was discharged to home on 12/13 with
plans for outpatient Oncology follow-up in the next week.
He returns to ED complaining of abdominal distention, N/V, inability to tolerate PO and general malaise / weakness.
Medical History
Past Medical History
Past Medical History: Reports Other
Additional Past Medical History:
Esophageal Adenocarcinoma with Malignant Ascites
Past Surgical History: Reports Other
Additional Past Surgical History:
Left Hip ORIF
Multiple Paracenteses
EGD / Biopsy
Social History
Tobacco: Former Smoker (Very minimal / remote smoking history. Quit in his early 20s.)
Alcohol: Daily (2 beers nightly.)
Drug: None
Family History
Family History: Other (Father: AAA Mother: Breast Cancer)
Allergies / Home Medications
Allergies reflects when Allergies were last updated in [facility].
Home Medications with original date entered in [facility]
Allergy/Medication List:
Allergies
Allergy/AdvReac Type Severity Reaction Status Date / Time
No Known Allergies Allergy Verified 12/16/24 01:52
Home Medications
pantoprazole 40 mg tablet,delayed release (Protonix) 40 mg PO BID #1 tab 12/08/24
polyethylene glycol 3350 17 gram oral powder packet 17 g PO DAILY #0 ea 12/08/24
Dulcolax (bisacodyl) 1 supp ID DAILYPRN PRN if MOM ineffective after 24 hrs 12/16/24
Milk Of Magnesia 7.75% 30 ml PO DAILYPRN PRN no BM in 3 days 12/16/24
acetaminophen 325 mg tablet (Tylenol) 650 mg PO Q4H PRN temp>100/pain 12/16/24
alprazolam 0.5 mg tablet 0.5 mg PO BID PRN anxiety 12/16/24
morphine concentrate 10 mg/0.5 mL oral syringe (FOR ORAL USE ONLY) 10 mg PO Q4H PRN pain 12/16/24
ondansetron 4 mg disintegrating tablet 4 mg PO TID 12/16/24
sodium phosphates 19 gram-7 gram/118 mL enema (Fleet Enema) 118 ml ID DAILYPRN PRN if dulcolax ineffective after 24hr 12/16/24
Review of Systems
-
History Source: Patient
A 12 point ROS was completed and negative except as noted: Yes
Constitutional: Reports Weight Loss and Fatigue; Denies Fever or Chills
EENT: Reports Other (Dry Mouth)
Respiratory: Denies Cough or Trouble Breathing
Cardiac: Denies Chest Pain or Palpitations
Abdomen/GI: Reports Abdominal Pain, Nausea, Vomiting and Anorexia; Denies Diarrhea or Bloody Stools
: Denies Dysuria or Frequency
Musculoskeletal: Reports Edema; Denies Joint Pain
Neurological: Reports Weakness; Denies Dizzy or Headache
Physical Exam
Vital Signs
Vital Signs
Temp Pulse Resp BP Pulse Ox
98.2 F 91 20 108/84 97
12/16/24 01:46 12/16/24 05:01 12/16/24 05:01 12/16/24 05:00 12/16/24 04:27
Physical Exam
General: Other (Ill-appearing / cachectic 74y M)
HEENT: Other (Dry MM. Poor dentition. Neck supple. Pos muscle wasting.)
Respiratory: Clear; No Wheezes, Rales or Rhonchi
Cardiac: S1/S2 and Tachycardia; No Murmur
GI: Other (Abdomen firm / no focal tenderness. Pos BS. )
Musculoskeletal: No Clubbing, No Cyanosis and Other (2+ pitting edema at the ankles bilaterally.)
Skin: Other (Fungating mass on the chest - midsternal area. Some oozing blood.)
Neuro: AO x 3
Laboratory Results
-
12/16/24 01:55
12/16/24 01:55
Laboratory Results
PT 14.7 Sec (11.4-14.6) H 12/16/24 01:55
INR 1.12 12/16/24 01:55
APTT 29.7 Sec (23.4-35.0) 12/16/24 01:55
Total Bilirubin 1.3 mg/dl (0.2-1.3) 12/16/24 01:55
AST 30 U/L (17-59) 12/16/24 01:55
ALT 19 U/L (0-50) 12/16/24 01:55
Alkaline Phosphatase 108 U/L (38-126) 12/16/24 01:55
Lipase 267 U/L (23-300) 12/16/24 01:55
Impression/Plan
-
A/P: Patient is a 74y M with PMH significant for recently diagnosed adenocarcinoma of the esophagus who presents to ED complaining of recurrent abdominal pain, N/V, malaise, etc.
Esophageal Adenocarcinoma
Malignant Ascites secondary to the above
Failure to Thrive secondary to the above
- Admit for further evaluation and treatment.
- Discussed with patient on admission and will re-consult Case Management / Hospice for further discussions.
- Pursue supportive / comfort measures primarily.
- IVF support, pain control, antiemetics, etc.
- IR eval for repeat paracentesis for comfort.
MIO
Hyponatremia
Hyperkalemia
- 3% saline ordered in the ED.
- Follow for changes in renal function / Na level.
- Bladder scan protocol and straight cath if necessary.
- Follow for any changes/ improvement in labs.
DVT Prophylaxis: SCDs
Code Status: DNR
Patient is aware of dismal prognosis given extent of his cancer involvement and poor functional capacity.
He is interested in further discussions with Palliative / Hospice care.
[2024-12-16] MEDS: SODIUM CHLORIDE 3% 250 IV (05:39)
--- NOTE | 2024-12-16 06:08 | EDRN ---
Report called to IMU
--- NOTE | 2024-12-16 06:44 | PTCARENOTE ---
Received pt from ED via stretcher. NSR on monitor with pulse ox at 96% on RA. Pt answered all orientation questions correctly but states he feels confused and has a hard time answering other simple questions like 'how did you get to the hospital?'
Tumor is protruding through chest wall; covered with adaptic and abd pad dated 12/13 which was the date he was discharged from . Has not been changed since. No pressure injuries noted on arrival. Oriented to room. Call shah within reach.
--- NOTE | 2024-12-16 09:09 | CM ---
Patient with Hx esophageal cancer. Plan paracentesis today. Room air.
CM Consult: Hospice
Met with patient and explained hospice philosophy & benefits.
Patient agrees with hospice.
He is hoping if can go to [facility] with hospice at d/c.
Spoke with [facility]; she will meet with the patient.
[facility]; the patient was there from 12/12/24 until 12/16/24 for short term rehab. If he wishes to return with hospice they will need to discuss private pay SNF with him or his brother.
Spoke with [facility]; she will consider the patient for private pay with hospice, however she is not sure she has an available bed.
Plan follow up after seen by Hospice.
--- NOTE | 2024-12-16 09:34 | CM ---
Addendum entered by Zehra Lujan RN 12/16/24 16:48:
Spoke with Tevin, brother; relayed noon transport requested for return to SNF tomorrow.
Per Tevin, [phone] DNR form on chart.
SNF and Hospice aware of noon transport request for tomorrow.
Plan [facility] tomorrow with [facility], noon transport requested.
Addendum entered by Zehra Lujan RN 12/16/24 13:43:
Spoke with [facility]; they do not have an available bed.
Sp[facility] with [facility]; the patient can return with [facility]. for report [phone], fax [phone].
Spoke with [facility] (fax [phone]); they will have available nurse tomorrow to see the patient at hospice. She will contact his brother.
Spoke with Tevin, brother; he agrees with d/c to [facility] with [facility] tomorrow.
Plan [facility] tomorrow with [facility].
Addendum entered by Zehra Lujan RN 12/16/24 10:24:
Spoke with patient's brother Tevin; provided update that patient will be seen by hospice nurse today. [facility] experience was ok but roommate was very loud. He is also hoping patient can go to [facility] where he had been a few times.
Plan follow up after seen by Hospice.
Original Note:
Patient from [facility] with Hx esophageal cancer. Plan paracentesis today. Room air.
CM Consult: Hospice
Met with patient and explained hospice philosophy & benefits.
Patient agrees with hospice.
He is hoping if can go to [facility] with hospice at d/c.
Spoke with [facility]; she will meet with the patient.
Spoke with Il[facility], [facility]; the patient was there from 12/12/24 until 12/16/24 for short term rehab and was assisted with ADLs. If he wishes to return with hospice they will need to discuss private pay SNF with him or his brother.
Spoke with [facility]na [facility]; she will consider the patient for private pay with hospice, however she is not sure she has an available bed.
Plan follow up after seen by Hospice.
[2024-12-16 10:45] LABS: Body Fluid WBC 415 /CUMM
[2024-12-16 10:47] LABS: Body Fluid Second Tech ASW
--- NOTE | 2024-12-16 11:06 | HOSPNOTE ---
Spoke with patient and he is in agreement with hospice services. Patient is from [facility] and may go back there with preferred hospice. Brother is asking CM to place a referral to [facility]. Will continue to follow.
[2024-12-16 11:07] LABS: Blood Urea Nitrogen 67 mg/dl (9-20); Calcium 8.2 mg/dl (8.4-10.2); Carbon Dioxide 20 mmol/L (22-30); Chloride 102 mmol/L (98-107); Estimated Creatinine Clearance 41 ml/min; Glucose 111 mg/dl (70-99); Potassium 5.5 mmol/L (3.5-5.1); Sodium 132 mmol/L (135-145)
[2024-12-16] MEDS: LOKELMA 10 GRAM PO (11:12)
[2024-12-16] MEDS: PROTONIX IV 40 MG IV ×2 (11:12→21:46)
[2024-12-16] MEDS: HEPARIN 5000 UNITS SC ×2 (11:12→21:46)
--- NOTE | 2024-12-16 11:21 | WOUNDNOTE ---
DOMINIC RN note: Patient admitted with acute hyponatremia, hyperkalemia, ascites and esophageal mass.
See H&P for complete history.
PMH: Metastatic esophageal cancer, chest wall mass and dysphagia.
Wound Location and type/assessment: Patient known to service, last seen end of November of this year. Admitted with same chest Tumor wound, raised mass, pink in center with dry crusty drainage on edges. Patient reports occasional odor. Patient able
to turn self, sacrum barely blanchable red, stage 1 PI. Heels intact, barely blanchable.
Appetite: Poor, clears, only taking sips of water.
Pressure redistribution devices in place: On air mattress. Air cushion on pillow placed under calves.
Plan: Local wound care applied. Recommend Vashe soaks then adaptic, gauze and silicone or Medipore tape daily and prn drainage. Called [facility] for Vashe, nurse Holt updated on the above. Protective sacral silicone foam applied and protective adhesive
foams to heels. Will confirm orders with hospitalist.
Updated care plan and will follow as needed.
Note to case management of equipment requested for discharge: TBD
e.
--- NOTE | 2024-12-16 11:37 | PTCARENOTE ---
Patient back from IR with bandaid on right lower abdomen. Patient complaining of mild nausea, Zofran administered with relief. Wound care consulted due to wound on chest and risk for skin breakdown. Patient is denying pain when asked. Able to drink
liquids, very poor appetite.
--- NOTE | 2024-12-16 16:36 | W.PN.HOSP.TC ---
Today's Communication/Plan
-
Hospice care does not want any life-saving measures no feeding tube. DNR/DNI
Assessment / Plan
Assessment / Plan
NAD
Scleral Anicteric
MMM
No JVD
CTABL
RRR, S1/S2
Soft, NT, mildly distended, BS+
Warm, Dry
AAOx3
Calm
Recent diagnosis of esophageal adenocarcinoma, with mets, stage IV s/p esophageal stent. Continue to encourage p.o. intake as tolerated
Ascites s/p paracentesis that was therapeutic, may consider Pleurx catheter as anabel are becoming more frequent for symptom resolution especially as going towards hospice
Plan to discharge to SNF tomorrow
Hyperkalemia give Lokelma
Hyponatremia improving after 3% saline.
Anticipated Discharge: Within 24 hours
Subjective/Interval History
-
Date of Service: December 16, 2024
Seen and examined. Elected to go towards hospice. 2 brothers at bedside.
Objective Data
-
Labs:
Laboratory Results
12/16/24
10:45
Sodium 132 L D
Potassium 5.5 H
Chloride 102
Carbon Dioxide 20 L
BUN 67 H
Creatinine 1.4 H
Glucose 111 H
Calcium 8.2 L
Vital Signs:
Vital Signs
Temp Pulse Resp BP Pulse Ox
97 F 86 18 104/68 97
12/16/24 11:05 12/16/24 15:00 12/16/24 15:00 12/16/24 14:00 12/16/24 15:00
I&O
12/15/24 12/16/24 12/17/24
06:59 06:59 06:59
Intake Total 350 / 350
Output Total 225 / 225
Balance 125 / 125
[2024-12-16] MEDS: XANAX 0.5 MG PO (21:46)
[2024-12-17] VITALS (14 sets, daily range): BP systolic 86–101; BP diastolic 60–73; BMI 20.2
--- NOTE | 2024-12-17 03:33 | PTCARENOTE ---
Patient AAOx3, withdrawn. Wound care done per order. Pt denying any pain at this time but describes a slight cramping in the lower chest. Pt having some anxiety and asked to take medication, administered PRN Xanax. Spoke to pt about hospice, very
open minded to the idea. Pt asked if there is a possibility to do hospice inpatient here. Reached out to LOTTERY CLERK and will pass along to dayshift and case management. Call shah is within reach.
[2024-12-17 06:26] LABS: Hematocrit 37.2 % (39.0-52.0); Hemoglobin 12.6 g/dL (13.0-18.0); Mean Corp Hgb Conc. 33.9 g/dL (33.0-37.0); Mean Corpuscular Hgb 27.4 pg (27.0-31.0); Mean Corpuscular Volume 80.9 fL (80.0-94.0); Mean Platelet Volume 9.3 fL (7.4-10.4); Platelet Count 369 10^3/uL (130-400); Red Cell Dist. Width 14.6 % (11.5-14.5); White Blood Cell Count 19.6 10^3/uL (4.8-10.8)
[2024-12-17 06:54] LABS: Blood Urea Nitrogen 47 mg/dl (9-20); Calcium 7.8 mg/dl (8.4-10.2); Carbon Dioxide 23 mmol/L (22-30); Chloride 97 mmol/L (98-107); Estimated Creatinine Clearance 73 ml/min; Glucose 85 mg/dl (70-99); Potassium 4.6 mmol/L (3.5-5.1); Sodium 125 mmol/L (135-145); eGFR > 60.00
[2024-12-17] MEDS: PROTONIX IV 40 MG IV ×2 (07:35→20:33)
[2024-12-17] MEDS: HEPARIN 5000 UNITS SC ×2 (08:05→20:34)
--- NOTE | 2024-12-17 11:40 | CM ---
Addendum entered by Zehra Lujan RN 12/17/24 11:57:
Spoke with [facility], [facility]; provided update patient staying here in comfort care.
Original Note:
Patient from [facility] with Hx esophageal cancer with Dx Ascites s/p paracentesis. Room air.
Met with patient and son Carlos; both asked if patient could stay here rather than return to [facility]. Discussed with [facility] who re-evaluated patient, she spoke with Dr Joe and decision was for patient to remain here in comfort
care. CM and Hospice nurse met with patient and brother again and relayed update. Carlos wants to hold his bed at [facility] through the weekend and intends to go over to SNF today to take care of that - [facility] at [facility] was informed
that d/c was cancelled today for comfort care, and family intends to hold the bed- she will let her business office know.
Plan comfort care.
--- NOTE | 2024-12-17 11:42 | HOSPNOTE ---
Spoke with patient and brother at length. Discharge was cancelled at this time back to [facility]. Patient is complaining of chest tightness and having anxiety that the fluid will build up again and his shortness of breath will not be managed
at the SNF. The plan is to keep patient here through the weekend medicate when appropriate for pain, shortness of breath and anxiety. Reassess on Saturday if the patient meets inpatient criteria admit on hospice, if the patient is stable then the
patient can return to [facility] with hospice services. Attending and CM aware of plan.
--- NOTE | 2024-12-17 12:53 | PN.CDI ---
CDI
- -
CDI:
Physician Documentation Request
Admit Date: 12/16/24 05:30
Dear Doctor Heath,
Please review the following and provide your response in the progress notes.
Clinical Indicators:
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
#Current BW: (12/16) 135 lbs 9.349 oz BMI: 20 (normal)
#...meets AND and ASPEN criteria for severe protein calorie malnutrition
#...of chronic disease due to a loss of 5% BW over 1 month and
#...less than 75% of estimated nutrient needs met for over 1 month.
Based on the above and your clinical assessment, please clarify the patient's nutritional status:
Severe Protein Calorie Malnutrition of Chronic Illness
Other (please specify)
[place] Criteria ([facility] 2017)
2 or more criteria must be present for either
non severe or severe malnutrition
Note that the criteria differs related to the
presence of an acute or chronic illness
Chronic Illness
Energy Intake Non Severe: <75% for >1 month
Severe: <75% for >1 month
Weight Loss Non Severe: 5% over 1 month
7.5% over 3 months
10% over 6 months
20% over 1 year
Severe: >5% over 1 month
>7.5% over 3 months
>10% over 6 months
>20% over 1 year
Body Fat Non Severe: Mild Loss
Severe: Severe Loss
Muscle Mass Non Severe: Mild Loss
Severe: Severe Loss
Use of terms such as suspected, likely, concern for, or probable (associated with a specific diagnosis that is being evaluated, monitored, or treated as if it exists) are acceptable and can be coded in the inpatient setting, when documented at the
time of discharge.
Thank you,
Linda Gary RN BSN CCDS
CDI Specialist
please contact via tiger text
Please use your independent medical judgment in providing your response.
--- NOTE | 2024-12-17 12:59 | PN.CDI ---
CDI
- -
CDI:
Physician Documentation Request
Admit Date: 12/16/24 05:30
Dear Doctor Heath,
Please review the following and provide your response in the progress notes.
Clinical Indicators:
12/16/24 11:21 - Wound Note
#Wound Location and type/assessment:
#...Patient able to turn self, sacrum barely blanchable red, stage 1 PI.
#...Heels intact, barely blanchable.
Selected Entries
12/16/24
11:26
Pressure injury stage [Present on admission Sacrum] Stage 1
Physician documentation of the type and location of wounds is required for compliant documentation. Based on the above clinical findings and your assessment, please provide the following in your progress note:
Yes, Stage 1 sacrum PI, POA
No, Stage 1 sacrum PI
Other (please specify)
Location of the ulcer/wound, including laterality.
Type (etiology) of ulcer/wound:
- Diabetic ulcer
- Arterial (ischemic) ulcer
- Traumatic wound
- Venous stasis ulcer
- Pressure (decubitus) ulcer
- Other
For a pressure ulcer, please also include the stage* of the ulcer:
- Stage 1 - Skin intact, non-blanchable redness
- Stage 2 - Partial thickness loss of dermis, includes intact or open blister
- Stage 3 - Full thickness tissue not including bone, tendon or muscle
- Stage 4 - Full thickness tissue loss, including exposed bone, tendon or muscle
- Unstageable - Full thickness loss in which the base of the ulcer is covered by slough (yellow, chopra, byrd, green or brown) and/or eschar (chopra, brown or black) in the wound bed.
Use of terms such as suspected, likely, concern for, or probable (associated with a specific diagnosis that is being evaluated, monitored, or treated as if it exists) are acceptable and can be coded in the inpatient setting, when documented at the
time of discharge.
Thank you,
Linda Gary RN BSN CCDS
CDI Specialist
please contact via tiger text
Please use your independent medical judgment in providing your response.
*Source: National Pressure Ulcer Advisory Panel (NPUAP)
--- NOTE | 2024-12-17 13:22 | W.PN.HOSP.TC ---
Today's Communication/Plan
-
Assessment / Plan
Assessment / Plan
NAD
Scleral Anicteric
MMM
No JVD
CTABL
RRR, S1/S2
Soft, NT, mildly distended, BS+
Warm, Dry
AAOx3
Calm
Recent diagnosis of esophageal adenocarcinoma, with mets, stage IV s/p esophageal stent. Continue to encourage p.o. intake as tolerated
Ascites s/p paracentesis that was therapeutic, may consider Pleurx catheter as anabel are becoming more frequent for symptom resolution especially as going towards hospice
Plan to discharge to SNF tomorrow
Hyperkalemia give Lokelma
Hyponatremia improving after 3% saline.
Initiate comfort care measures. This was discussed with hospice.
Anticipated Discharge: 24 - 48 hours
Subjective/Interval History
-
Date of Service: December 17, 2024
Seen and examined. Wants to go towards comfort care.
Objective Data
-
Labs:
Laboratory Results
12/17/24
05:57
WBC 19.6 H
Hgb 12.6 L
Hct 37.2 L
Plt Count 369
Sodium 125 L
Potassium 4.6
Chloride 97 L
Carbon Dioxide 23
BUN 47 H
Creatinine 0.8
Glucose 85
Calcium 7.8 L
Vital Signs:
Vital Signs
Temp Pulse Resp BP Pulse Ox
97.5 F 77 15 98/64 96
12/17/24 11:22 12/17/24 10:00 12/17/24 10:00 12/17/24 10:00 12/17/24 10:00
I&O
12/16/24 12/17/24 12/18/24
06:59 06:59 06:59
Intake Total 350 / 350
Output Total 725 / 725 550 / 550
Balance -375 / -375 -550 / -550
--- NOTE | 2024-12-17 13:47 | PTCARENOTE ---
Patient c/o heartburn. PRN tums ordered, scheduled protonix given with relief. Patient withdrawn, currently resting. VSS, BPs soft. To transition to hospice care. Patient making needs known. Will closely monitor.
[2024-12-17] MEDS: TUMS CHEWABLE TABLET 400 MG PO (14:57)
[2024-12-17] MEDS: ROXANOL ORAL CONCENTRATE 10 MG PO (20:46)
[2024-12-18] VITALS (9 sets, daily range): BP systolic 82–106; BP diastolic 64–77; BMI 19.9
--- NOTE | 2024-12-18 00:36 | PTCARENOTE ---
Patient AAOx3, very withdrawn. Pt complains of body aches and 6/10 pain in his lower back. Spoke to pt regarding pain management and use of pain medication. Pt requesting pain medication, administered PRN morphine see JAN. VS. Assessment charted.
Pt to be transitioned to hospice care. Pt able to make needs known, call shah within reach.
[2024-12-18] MEDS: ROXANOL ORAL CONCENTRATE 10 MG PO (01:07)
[2024-12-18] MEDS: PROTONIX IV 40 MG IV ×2 (08:25→20:17)
[2024-12-18] MEDS: HEPARIN 5000 UNITS SC ×2 (08:25→20:16)
--- NOTE | 2024-12-18 10:09 | PTCARENOTE ---
Patient AAOx3, pleasant, withdrawn. C/o stomach burning, refused tums. Abdomen firm and tender to touch. NSR on monitor. VSS, BPs soft at times. Appetite very poor. Patient making needs known. Will closely monitor.
--- NOTE | 2024-12-18 14:27 | HOSPNOTE ---
Patient was placed on comfort measures and will re-evaluate on Saturdayif patient will return to SNF with hospice services or will remain inpatient hospice. Will continue to follow.
--- NOTE | 2024-12-18 14:27 | W.PN.HOSP.TC ---
Today's Communication/Plan
-
has been transitioned to comfort care
Assessment / Plan
Assessment / Plan
NAD
Scleral Anicteric
MMM
No JVD
CTABL
RRR, S1/S2
Soft, NT, mildly distended, BS+
Warm, Dry
AAOx3
Calm
Recent diagnosis of esophageal adenocarcinoma, with mets, stage IV s/p esophageal stent. Continue to encourage p.o. intake as tolerated
Ascites s/p paracentesis that was therapeutic, may consider Pleurx catheter as anabel are becoming more frequent for symptom resolution especially as going towards hospice
Plan to discharge to SNF tomorrow
Hyperkalemia give Lokelma
Hyponatremia improving after 3% saline.
Initiate comfort care measures. This was discussed with hospice.
Anticipated Discharge: 24 - 48 hours
Subjective/Interval History
-
Date of Service: December 18, 2024
seen and examined. stated that the morphine help last night to get some sleep
Objective Data
-
Vital Signs:
Vital Signs
Temp Pulse Resp BP Pulse Ox
97.4 F 95 16 84/67 96
12/18/24 11:15 12/18/24 12:00 12/18/24 12:00 12/18/24 12:00 12/18/24 12:00
I&O
12/17/24 12/18/24 12/19/24
06:59 06:59 06:59
Intake Total 350 / 350 240 / 240
Output Total 725 / 725 750 / 750 425 / 425
Balance -375 / -375 -510 / -510 -425 / -425
[2024-12-18] MEDS: COMPAZINE 5 MG PO (15:15)
[2024-12-18] MEDS: FLUSH (NSS) 2 FLUSH IV (20:17)
[2024-12-18] MEDS: NSS (PRESERVATIVE FREE) 10 ML IV (20:17)
--- NOTE | 2024-12-18 22:41 | PTCARENOTE ---
Pt with nausea and vomiting of dark bloody vomitus. Pt unable to take prn Compazine PO as ordered. Mariah JEAN TT'd and made aware. Order entered for stat Zofran IV. When able to give IV Zofran pt sound asleep. Will hold of for now and see if pt
needs at a later time. Currently resting comfortably. Call shah remains within reach. Will continue to monitor.
[2024-12-19] VITALS: BP 92/64
[2024-12-19] MEDS: ZOFRAN 4 MG IV (03:10)
[2024-12-19] MEDS: FLUSH (NSS) 2 FLUSH IV (03:10)
[2024-12-19 04:00] VITALS: BP 99/73
[2024-12-19] MEDS: COMPAZINE 5 MG IV ×2 (07:34→21:46)
[2024-12-19 08:00] VITALS: BP 102/71
[2024-12-19] MEDS: HEPARIN 5000 UNITS SC (08:34)
[2024-12-19] MEDS: PROTONIX IV 40 MG IV (08:36)
[2024-12-19] MEDS: NSS (PRESERVATIVE FREE) 10 ML IV (08:39)
[2024-12-19] MEDS: PHENERGAN 51 MG IV (10:37)
--- NOTE | 2024-12-19 11:03 | HOSPNOTE ---
Patient is on comfort measures and will re-evaluate on Saturdayif patient will return to SNF with hospice services or will remain inpatient hospice. Will continue to follow.
--- NOTE | 2024-12-19 12:29 | W.PN.HOSP.TC ---
Addendum entered and electronically signed by Quinten Joe MD 12/19/24 14:11:
Severe Protein Calorie Malnutrition of Chronic Illness, ensure tid
sacrum, stage 1 PI. wound care
Original Note:
Today's Communication/Plan
-
Assessment / Plan
Assessment / Plan
NAD
Scleral Anicteric
MMM
No JVD
CTABL
RRR, S1/S2
Soft, NT, mildly distended, BS+
Warm, Dry
AAOx3
Calm
Recent diagnosis of esophageal adenocarcinoma, with mets, stage IV s/p esophageal stent. Continue to encourage p.o. intake as tolerated
Ascites s/p paracentesis that was therapeutic, may consider Pleurx catheter as anabel are becoming more frequent for symptom resolution especially as going towards hospice
Plan to discharge to SNF tomorrow
Hyperkalemia give Lokelma
Hyponatremia improving after 3% saline.
Initiate comfort care measures. This was discussed with hospice.
Anticipated Discharge: > 48 hours
Subjective/Interval History
-
Date of Service: December 19, 2024
Seen and examined.
Objective Data
-
Vital Signs:
Vital Signs
Temp Pulse Resp BP Pulse Ox
97.2 F 96 14 102/71 96
12/19/24 11:00 12/19/24 08:00 12/19/24 08:00 12/19/24 08:00 12/19/24 09:42
I&O
12/18/24 12/19/24 12/20/24
06:59 06:59 06:59
Intake Total 240 / 240 100 / 100
Output Total 750 / 750 425 / 425
Balance -510 / -510 -325 / -325
--- NOTE | 2024-12-19 14:15 | PTCARENOTE ---
Report given to Jessica WHITE on . Pt moved to room 2133, Pt's brother at bedside.
[2024-12-19 14:41] VITALS: BP 101/67
--- NOTE | 2024-12-19 15:30 | PTCARENOTE ---
Pt received from IMU via his bed. Pt appears lethargic with eyes closed and non verbal. No reports of pain or nausea from transport. Previous assessment remains the same. Will be available for pt's needs on comfort measures.
[2024-12-19 20:28] VITALS: BP 108/71
[2024-12-19] MEDS: PROTONIX IV IV ×2 (20:37→22:45)
[2024-12-19] MEDS: MORPHINE SULFATE IV (20:38)
[2024-12-19] MEDS: NSS (PRESERVATIVE FREE) IV ×2 (20:39→22:42)
[2024-12-19 21:02] VITALS: BP 108/71
[2024-12-19] MEDS: HEPARIN SC (21:26)
[2024-12-19] MEDS: MORPHINE SULFATE 1 MG IV (21:48)
[2024-12-20 07:55] VITALS: BP 112/74
[2024-12-20] MEDS: PROTONIX IV 40 MG IV ×2 (09:52→20:19)
[2024-12-20] MEDS: NSS (PRESERVATIVE FREE) 10 ML IV ×2 (09:52→20:19)
[2024-12-20] MEDS: FLUSH (NSS) 2 FLUSH IV (09:53)
[2024-12-20] MEDS: ROXANOL ORAL CONCENTRATE 10 MG PO (09:59)
--- NOTE | 2024-12-20 10:35 | W.PN.HOSP.TC ---
Today's Communication/Plan
-
maintain comfort care measures
allow for dignity and hygiene
Assessment / Plan
Assessment / Plan
NAD
CTABL
RRR, S1/S2
Soft, NT, mildly distended, BS+
Warm, Dry
AAOx3
Tearful
Recent diagnosis of esophageal adenocarcinoma, with mets, stage IV s/p esophageal stent. Continue to encourage p.o. intake as tolerated
Ascites s/p paracentesis that was therapeutic, may consider Pleurx catheter as anabel are becoming more frequent for symptom resolution especially as going towards hospice, initially was going to be at snf, but did have some hematemesis, hospice
belives care currently in line with comfort as that is all that Mr. Rhodes wants.
Hyperkalemia give Lokelma, no check bmp anymore
Hyponatremia improved after 3% saline. no checking bmp anymore
Comfort care measures
Anticipated Discharge: 24 - 48 hours
Subjective/Interval History
-
Date of Service: December 20, 2024
seen and examined
clinically remains unchanged
Objective Data
-
Vital Signs:
Vital Signs
Temp Pulse Resp BP Pulse Ox
97.9 F 94 16 112/74 95
12/20/24 07:55 12/20/24 07:55 12/20/24 07:55 12/20/24 07:55 12/20/24 07:55
I&O
12/19/24 12/20/24 12/21/24
06:59 06:59 06:59
Intake Total 100 / 100 720 / 720
Output Total 425 / 425 750 / 750
Balance -325 / -325 -30 / -30
--- NOTE | 2024-12-20 14:02 | CHAP ---
Mr. Rhodes spoke a few words - said he is not synagogue, does have family in the area. Made eye contact. Emotional and spiritual support provided, along with assurance of our on-going availability.
--- NOTE | 2024-12-20 14:33 | HOSPNOTE ---
Patient is on comfort measures and will re-evaluate on Saturday if patient will return to SNF with hospice services or signing onto inpatient hospice. Will continue to follow.
[2024-12-20 19:56] VITALS: BP 104/70
[2024-12-20] MEDS: PHENERGAN 51 MG IV (20:31)
[2024-12-21] MEDS: PHENERGAN 51 MG IV ×2 (02:31→09:34)
[2024-12-21 08:00] VITALS: BP 102/75
--- NOTE | 2024-12-21 08:44 | W.PN.HOSP.TC ---
Today's Communication/Plan
-
comfort care
Assessment / Plan
Assessment / Plan
Recent diagnosis of esophageal adenocarcinoma, with mets, stage IV s/p esophageal stent.
Ascites s/p therapeutic paracentesis last admission
Decision made for hospice/comfort care
Hyperkalemia give Lokelma
Hyponatremia improved after 3% saline
-no further lab checks
Comfort care measures
Anticipated Discharge: > 48 hours
Subjective/Interval History
-
Date of Service: December 21, 2024
no new questions or concerns
denies pain
Objective Data
-
Vital Signs:
Vital Signs
Temp Pulse Resp BP Pulse Ox
98.6 F 98 16 102/75 100
12/21/24 08:00 12/21/24 08:00 12/21/24 08:00 12/21/24 08:00 12/21/24 08:00
I&O
12/20/24 12/21/24 12/22/24
06:59 06:59 06:59
Intake Total 720 / 720 240 / 240
Output Total 750 / 750 675 / 675
Balance -30 / -30 -435 / -435
Review of Systems
-
History Source: Patient
All other systems: Reviewed and negative
Physical Exam
-
General: Other (frail appearing, in no acute distress, weak voice )
Respiratory: Other (chest mass)
Cardiac: Regular Rhythm and S1/S2
GI: Nontender
Musculoskeletal: No Edema
Neuro: AO x 3
Psych: Calm
Data Reviewed
-
Diagnostic Radiology: Report Reviewed by me
Labs: Labs Reviewed by me
[2024-12-21] MEDS: NSS (PRESERVATIVE FREE) 10 ML IV ×2 (09:32→20:36)
[2024-12-21] MEDS: PROTONIX IV 40 MG IV ×2 (09:32→20:35)
--- NOTE | 2024-12-21 11:01 | CM ---
Reviewed the chart notes and spoke with the patient and his brother at the bedside. CM continues to be available to patient/family.
Plan: Comfort care.
[2024-12-21] MEDS: MORPHINE SULFATE 1 MG IV ×3 (11:08→14:33)
--- NOTE | 2024-12-21 12:57 | HOSPNOTE ---
Spoke with Attending and the plan is to admit patient inpatient tomorrow 12/22. I spoke with brother and patient and they are in agreement with plan. I will call admissions and get the hospice chart ready. CM and Attending aware of plan.
[2024-12-21] MEDS: MORPHINE 100 IV (15:01)
[2024-12-21] MEDS: MORPHINE SULFATE 2 MG IV ×2 (17:08→20:48)
--- NOTE | 2024-12-21 17:19 | SUR.PHASEI ---
Patient with decreased urine output; three unsuccessful attempts made by three different RNs to place brock cath for End of Life; Dr. Erwin made aware; no new orders at this time.
[2024-12-21 19:50] VITALS: BP 104/69
[2024-12-22 07:30] VITALS: BP 114/63
[2024-12-22] MEDS: NSS (PRESERVATIVE FREE) 10 ML IV (07:32)
[2024-12-22] MEDS: PROTONIX IV 40 MG IV (07:33)
--- NOTE | 2024-12-22 09:15 | W.PN.HOSP.TC ---
Today's Communication/Plan
-
IV morphine gtt
comfort care
Assessment / Plan
Assessment / Plan
Recent diagnosis of esophageal adenocarcinoma, with mets, stage IV s/p esophageal stent.
Ascites s/p therapeutic paracentesis last admission
Decision made for hospice/comfort care
Hyponatremia improved after 3% saline
-no further lab checks
Comfort care measures
Anticipated Discharge: 24 - 48 hours
Subjective/Interval History
-
Date of Service: December 22, 2024
resting peacefully on morphine gtt
Objective Data
-
Vital Signs:
Vital Signs
Temp Pulse Resp BP Pulse Ox
97.1 F 93 14 114/63 98
12/22/24 07:30 12/22/24 07:30 12/22/24 07:30 12/22/24 07:30 12/22/24 07:30
I&O
12/21/24 12/22/24 12/23/24
06:59 06:59 06:59
Intake Total 240 / 240 240 / 240
Output Total 675 / 675 575 / 575
Balance -435 / -435 -335 / -335
Review of Systems
-
History Source: Patient
All other systems: Reviewed and negative
Physical Exam
-
General: Other (frail appearing, in no acute distress, weak voice )
Respiratory: Other (chest mass)
Cardiac: Regular Rhythm and S1/S2
GI: Nontender
Musculoskeletal: No Edema
Neuro: AO x 3
Psych: Calm
Data Reviewed
-
Diagnostic Radiology: Report Reviewed by me
Labs: Labs Reviewed by me
--- NOTE | 2024-12-22 11:03 | HOSPNOTE ---
Patient is now on a morphine drip, patient appears comfortable however does need PRN doses prior to care and movement. Patient is admitted today inpatient hospice. Family at bedside emotional support provided.
--- NOTE | 2024-12-22 11:30 | CM ---
Reviewed the chart notes. CM continues to be available to patient/family.
Plan: Comfort care.
--- NOTE | 2024-12-22 12:56 | W.DCSUMMARY ---
Discharge Summary
Discharge Data
Date of Admission: 12/16/24
Date of Discharge: 12/22/24
-
Pending Results: No
Hospital Course
Discharging Physician : Dr. Veda Erwin
Disposition : Inpatient Hospice
Principal Discharge diagnosis : Esopahgeal Cancer
Hospital Course :
Patient is a 74y M with PMH significant for recently diagnosed esophageal cancer with abdominal ascites (diagnosed on recent admission s/p paracenteses and discharged with outpatient Oncology follow up), who presents to ED complaining of
abdominal pain, distention, inability to tolerate PO intake, N/V and general malaise. Given progressive decline and poor prognosis in setting of advanced esophageal cancer, decision made for comfort care and hospice. He was started on an IV
morphine gtt to help with pain and shortness of breath. Transferred to inpatient hospice on 12/22/24.
Discharge Plan
-
Patient Disposition: Hospice - Inpatient
Discharge Orders:
Discharge Patient (As Directed); Ordered 12/22/24
Ordered By: Veda Erwin
Discharge Date and Time
Print Language: KOREAN
== END 2024-12-22 13:27 | disposition hospice, inpatient (51) | DRG 374 ==
LOC: 2 NORTH 05:30
PROVIDERS: Hospitalist; Radiology Vascular & Interventional Radiology; ADMITTING PHYSICIAN Hospitalist; ATTENDING PHYSICIAN Student in an Organized Health Care Education/Training Program; EMERGENCY PHYSICIAN Student in an Organized Health Care Education/Training Program; FAMILY PHYSICIAN Internal Medicine
PROC: 0W9G3ZZ Drainage of Peritoneal Cavity, Percutaneous Approach (ICD-10-PCS; 2024-12-16)
DX: C15.9 Malignant neoplasm of esophagus, unspecified (principal); E43 Unspecified severe protein-calorie malnutrition; E87.1 Hypo-osmolality and hyponatremia; R64 Cachexia; R18.0 Malignant ascites; N17.9 Acute kidney failure, unspecified; Z68.1 Body mass index [BMI] 19.9 or less, adult; R62.7 Adult failure to thrive; Z51.5 Encounter for palliative care; E87.5 Hyperkalemia; Z66 Do not resuscitate; Z87.891 Personal history of nicotine dependence; L89.151 Pressure ulcer of sacral region, stage 1
CPT/HCPCS: 49083; 74022; 80048; 80053; 83690; 85025; 85027; 85610; 85730; 86850; 86900; 86901; 87015; 87070; 87205; 89051; 96361; 96374; 96375; 99291

== ENCOUNTER 2024-12-22 13:30 | Inpatient (IN) | payer OTHER, SELFPAY ==
[2024-12-22 13:34] VITALS: BMI 19.8
--- NOTE | 2024-12-22 13:41 | CM ---
Reviewed the chart notes. Patient now [facility].
Plan: [facility].
--- NOTE | 2024-12-22 13:57 | HPS.HSE ---
Family Physician
-
Family Physician: NOT KNOW UNKNOWN - PT DOES
Chief Complaint
-
inpatient hospice
History of Present Illness
Patient is a 74y M with PMH significant for recently diagnosed esophageal cancer with abdominal ascites (diagnosed on recent admission s/p paracenteses and discharged with outpatient Oncology follow up), who presents to ED complaining of
abdominal pain, distention, inability to tolerate PO intake, N/V and general malaise. Given progressive decline and poor prognosis in setting of advanced esophageal cancer, decision made for comfort care and hospice. He was started on an IV
morphine gtt to help with pain and shortness of breath. Transferred to inpatient hospice on 12/22/24.
Medical History
Past Medical History
Past Medical History: Reports Other
Additional Past Medical History:
Esophageal Adenocarcinoma with Malignant Ascites
Past Surgical History: Reports Other
Additional Past Surgical History:
Left Hip ORIF
Multiple Paracenteses
EGD / Biopsy
Social History
Tobacco: Former Smoker (Very minimal / remote smoking history. Quit in his early 20s.)
Alcohol: Daily (2 beers nightly.)
Drug: None
Family History
Family History: Other (Father: AAA Mother: Breast Cancer)
Allergies / Home Medications
Allergies reflects when Allergies were last updated in [facility].
Home Medications with original date entered in [facility]
Allergy/Medication List:
Allergies
Allergy/AdvReac Type Severity Reaction Status Date / Time
No Known Allergies Allergy Verified 12/16/24 01:52
Home Medications
pantoprazole 40 mg tablet,delayed release (Protonix) 40 mg PO BID #1 tab 12/08/24
polyethylene glycol 3350 17 gram oral powder packet 17 g PO DAILY #0 ea 12/08/24
Dulcolax (bisacodyl) 1 supp DE DAILYPRN PRN if MOM ineffective after 24 hrs 12/16/24
Milk Of Magnesia 7.75% 30 ml PO DAILYPRN PRN no BM in 3 days 12/16/24
acetaminophen 325 mg tablet (Tylenol) 650 mg PO Q4H PRN temp>100/pain 12/16/24
alprazolam 0.5 mg tablet 0.5 mg PO BID PRN anxiety 12/16/24
morphine concentrate 10 mg/0.5 mL oral syringe (FOR ORAL USE ONLY) 10 mg PO Q4H PRN pain 12/16/24
ondansetron 4 mg disintegrating tablet 4 mg PO TID 12/16/24
sodium phosphates 19 gram-7 gram/118 mL enema (Fleet Enema) 118 ml DE DAILYPRN PRN if dulcolax ineffective after 24hr 12/16/24
Review of Systems
-
Unable to obtain full review of systems at this time due to: Patient Non-verbal
History Source: Patient
Physical Exam
Vital Signs
Vital Signs
Temp Pulse Resp BP Pulse Ox
98.2 F 91 20 108/84 97
12/16/24 01:46 12/16/24 05:01 12/16/24 05:01 12/16/24 05:00 12/16/24 04:27
Physical Exam
General: Other (Ill-appearing / cachectic 74y M)
HEENT: Anicteric
Respiratory: Clear and Other (chest mass); No Wheezes, Rales or Rhonchi
Cardiac: S1/S2; No Murmur
GI: Soft and Non Tender
Musculoskeletal: No Clubbing, No Cyanosis and Other (2+ pitting edema at the ankles bilaterally.)
Skin: Other (Fungating mass on the chest - midsternal area. Some oozing blood.)
Neuro: Sedated
Psych: Calm
Data Reviewed
-
Diagnostic Radiology: Report Reviewed by me
Lab Data: Labs Reviewed by me
Impression/Plan
-
Recent diagnosis of esophageal adenocarcinoma, with mets, stage IV s/p esophageal stent.
Ascites s/p therapeutic paracentesis last admission
Decision made for hospice/comfort care
-continue IV morphine gtt
-IV Ativan PRN
Comfort care measures
[2024-12-22] MEDS: MORPHINE SULFATE 2 MG IV ×3 (14:26→23:14)
--- NOTE | 2024-12-22 15:31 | HOSPNOTE ---
Patient admitted [facility] level of hospice care today. Brother Don signed consents. Patient is appropriate for [facility] level of care for the management of pain, dyspnea and anxiety that could not be managed in the outpatient setting. Patient is on a morphine
infusion and requiring IVP PRN Morphine for breakthrough pain/dyspnea. Patient is also getting IVP PRN Ativan for anxiety. Patient will be seen daily by hospice nurse.
[2024-12-22 19:37] VITALS: BP 115/79
[2024-12-23] MEDS: MORPHINE SULFATE 2 MG IV ×6 (02:51→21:05)
[2024-12-23 07:29] VITALS: BP 113/75
--- NOTE | 2024-12-23 08:59 | W.PN.HOSP.TC ---
Today's Communication/Plan
-
comfort care
Assessment / Plan
Assessment / Plan
Recent diagnosis of esophageal adenocarcinoma, with mets, stage IV s/p esophageal stent.
Ascites s/p therapeutic paracentesis last admission
Nausea/vomiting; inability to tolerate PO
Decision made for hospice/comfort care
Hyperkalemia give Lokelma
Hyponatremia improved after 3% saline
-no further lab checks
Comfort care measures
Anticipated Discharge: > 48 hours
Anticipated Discharge: 24 - 48 hours
Subjective/Interval History
-
Date of Service: December 23, 2024
patient awake, nods head no when asked if he has pain
Objective Data
-
Vital Signs:
Vital Signs
Temp Pulse Resp BP Pulse Ox
97.0 F 92 16 113/75 98
12/23/24 07:29 12/23/24 07:29 12/23/24 07:29 12/23/24 07:29 12/23/24 07:29
I&O
12/22/24 12/23/24 12/24/24
06:59 06:59 06:59
Intake Total 240 / 240
Output Total 625 / 625
Balance -385 / -385
Review of Systems
-
History Source: Patient
All other systems: Reviewed and negative
Physical Exam
-
General: Other (frail appearing, in no acute distress, weak voice )
Respiratory: Other (chest mass)
Cardiac: Regular Rhythm and S1/S2
GI: Nontender
Musculoskeletal: No Edema
Neuro: AO x 3
Psych: Calm
Data Reviewed
-
Diagnostic Radiology: Report Reviewed by me
Labs: Labs Reviewed by me
[2024-12-23] MEDS: NSS (PRESERVATIVE FREE) 0.5 ML IV ×2 (09:03→15:16)
[2024-12-23] MEDS: ATIVAN 1 MG IV ×2 (09:04→15:16)
--- NOTE | 2024-12-23 09:15 | CM ---
Reviewed the chart notes. CM continues to be available to patient/family.
Plan: [facility] continues.
--- NOTE | 2024-12-23 11:25 | HOSPNOTE ---
Patient is extremely lethargic today. Patient continues on a morphine drip. PRN doses are given prior to change and repositioning. Patient has not had any nausea and vomiting. Patient continues to be inpatient hospice for pain management and n/v.
Patient will be seen daily by hospice.
--- NOTE | 2024-12-23 16:51 | PTCARENOTE ---
Attempted to place brock catheter pt for bladder scan greater than 671, 2 failed attempts even with caude tip cath, discussed with hospice music therapist that same thing apparently happened yesterday. Will continue with current care, brother Tevin in room
updated.
--- NOTE | 2024-12-23 17:34 | HOSPNOTE ---
Jas was sleeping peacefully, non-responsive. He did not appear to be in pain. No family was present. [employer] provided emotional and spiritual support through presence, words of comfort and encouragement, and prayer. Will continue support
through weekly visits, and will also check in on the weekend.
[2024-12-23 19:46] VITALS: BP 69/46
--- NOTE | 2024-12-23 22:23 | W.PN.DEATH ---
Pronouncement of
-
Called to see patient to pronounce.
No spontaneous heart tones or respirations noted.
Patient not responsive to verbal stimuli.
Patient is pronounced .
Time of : 22:00
Date of : 12/23/24
Cause of : Failure to thrive Esophageal Adenocarcinoma with Malignant Ascites
Family Notified: Yes (Brother)
--- NOTE | 2024-12-24 07:27 | W.DCSUMMARY ---
Discharge Summary
Discharge Data
Date of Admission: 12/22/24
Date of Discharge: 12/23/24
-
Pending Results: No
Hospital Course
Time of : 22:00
Date of : 12/23/24
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
Hospital Course :
Patient was a 74y M with PMH significant for recently diagnosed esophageal cancer with abdominal ascites (diagnosed on recent admission s/p paracenteses and discharged with outpatient Oncology follow up), who presents to ED complaining of
abdominal pain, distention, inability to tolerate PO intake, N/V and general malaise. Given progressive decline and poor prognosis in setting of advanced esophageal cancer, decision made for comfort care and hospice. He was started on an IV
morphine gtt to help with pain and shortness of breath. Transferred to inpatient hospice on 12/22/24. He passed peacefully at 10 PM on 12/23/24; brother was notified.
Important imaging findings :
Procedure findings :
Discharge Plan
-
Patient Disposition:
Date/Time
Date/Time: 12/23/24 22:00
Discharge Date and Time
Discharge Date/Time: 12/23/24 23:35
Print Language: TANZANIAN
== END 2024-12-23 22:00 | disposition expired | DRG 374 ==
LOC: 2 NORTH 13:30
PROVIDERS: ADMITTING PHYSICIAN Student in an Organized Health Care Education/Training Program
DX: C15.9 Malignant neoplasm of esophagus, unspecified (principal); E43 Unspecified severe protein-calorie malnutrition; E87.1 Hypo-osmolality and hyponatremia; R18.0 Malignant ascites; Z68.1 Body mass index [BMI] 19.9 or less, adult; R64 Cachexia; R62.7 Adult failure to thrive; Z51.5 Encounter for palliative care; E87.5 Hyperkalemia; Z80.3 Family history of malignant neoplasm of breast; Z87.891 Personal history of nicotine dependence